=== PATIENT | female | born 1965 | race African-American/Black ===

== ENCOUNTER 2017-12-09 15:47 | Inpatient (IN) | payer SELFPAY ==
[~2017-12-09] VITALS: Ht 162.6 cm; Wt 51.8 kg
[2017-12-09] VITALS (11 sets, daily range): BP systolic 137–220; BP diastolic 65–110
[2017-12-09] MEDS ORDERED: ASPIRIN CHEWABLE 81 MG TABLET. PO ONE (16:00)
[2017-12-09] MEDS ORDERED: NITROGLYCERIN SUBLINGUAL 0.4 MG BOTTLE OF 25. SL ONE (16:00)
[2017-12-09] MEDS: NITROGLYCERIN SUBLINGUAL 0.4 MG BOTTLE OF 25. SL PRN ×3 (16:04→16:16)
--- NOTE | 2017-12-09 16:08 | PHYS DOC ---
Past Medical History Past Medical History: Hypertension Past Surgical History: Tubal ligation Alcohol Use: Occasionally Drug Use: None Adult General Chief Complaint Chief Complaint: SHORTNESS OF BREATH HPI HPI Patient is a 52 year old female with a history of lower leg swelling presents to the ED complaining of shortness of breath and worsening lower leg swelling over the last few months. States she went her chiropractor today and he sent her to the ED. Oxygen saturation was 85%. States she feels like her anxiety is causing her symptoms. States she has a lot of family stuff going on at home. Complains of mild chest pressure. Rates the pain as 1 out of 10. Patient has been sleeping in a recliner for the past year because she gets short of breath when she lays flat. Denies abdominal pain, recent travel, dizziness, weakness, syncope, fever, neck pain or nausea/vomiting. Review of Systems Review of Systems Constitutional: Denies fever or chills [] Eyes: Denies change in visual acuity, redness, or eye pain [] HENT: Denies nasal congestion or sore throat [] Respiratory: Complains of shortness of breath. Denies cough. Cardiovascular: No additional information not addressed in HPI [] GI: Denies abdominal pain, nausea, vomiting, bloody stools or diarrhea [] : Denies dysuria or hematuria [] Musculoskeletal: Complains of bilateral lower leg swelling. Denies back pain or joint pain [] Integument: Denies rash or skin lesions [] Neurologic: Denies headache, focal weakness or sensory changes [] All other systems were reviewed and found to be within normal limits, except as documented in this note. Current Medications Current Medications Current Medications Medications (Trade) Dose Ordered Sig/Keri Start Time Stop Time Status Last Admin Dose Admin Aspirin (Children'S Aspirin) 324 mg 1X ONCE 12/09/17 16:00 12/09/17 16:06 DC 12/09/17 16:08 324 MG Furosemide (Lasix) 40 mg 1X ONCE 12/09/17 16:45 12/09/17 16:46 DC 12/09/17 16:45 40 MG Nitroglycerin (Nitrostat) 0.4 mg STK-MED ONCE 12/09/17 16:00 12/09/17 16:01 DC Nitroglycerin/ Dextrose 250 ml @ 0 mls/hr 1X ONCE 12/09/17 16:30 12/09/17 18:52 DC 12/09/17 16:29 1.5 MLS/HR Allergies Allergies Allergies Coded Allergies Type Severity Reaction Last Updated Verified No Known Drug Allergies 12/09/17 No Physical Exam Physical Exam Constitutional: Well developed, well nourished, no acute distress, non-toxic appearance. [] HENT: Normocephalic, atraumatic. Eyes: PERRLA, EOMI, conjunctiva normal, no discharge. [] Neck: Normal range of motion, no tenderness, supple, no stridor. [] Cardiovascular:Heart rate regular rhythm, no murmur [] Lungs & Thorax: Bilateral breath sounds, crackles in lower bases bilaterally. [ ] Abdomen: Bowel sounds normal, soft, no tenderness, no masses, no pulsatile masses. [] Skin: Warm, dry, no erythema, no rash. [] Back: No tenderness, no CVA tenderness. [] Extremities: No tenderness, no cyanosis, no clubbing, ROM intact. 3+ bilateral lower leg pitting edema. Neurologic: Alert and oriented X 3, normal motor function, normal sensory function, no focal deficits noted. [] Psychologic: Affect normal, judgement normal, mood normal. [] Current Patient Data Vital Signs Vital Signs Date Time Temp Pulse Resp B/P (MAP) Pulse Ox O2 Delivery O2 Flow Rate FiO2 12/09/17 17:04 102 28 255/151 (185) 96 Nasal Cannula 3.0 Lab Values Laboratory Tests Test 12/09/17 16:00 White Blood Count 5.9 x10^3/uL (4.0-11.0) Red Blood Count 3.75 x10^6/uL (3.50-5.40) Hemoglobin 11.9 g/dL (12.0-15.5) L Hematocrit 35.2 % (36.0-47.0) L Mean Corpuscular Volume 94 fL (79-100) Mean Corpuscular Hemoglobin 32 pg (25-35) Mean Corpuscular Hemoglobin Concent 34 g/dL (31-37) Red Cell Distribution Width 16.7 % (11.5-14.5) H Platelet Count 271 x10^3/uL (140-400) Neutrophils (%) (Auto) 70 % (31-73) Lymphocytes (%) (Auto) 21 % (24-48) L Monocytes (%) (Auto) 7 % (0-9) Eosinophils (%) (Auto) 2 % (0-3) Basophils (%) (Auto) 1 % (0-3) Neutrophils # (Auto) 4.1 x10^3uL (1.8-7.7) Lymphocytes # (Auto) 1.2 x10^3/uL (1.0-4.8) Monocytes # (Auto) 0.4 x10^3/uL (0.0-1.1) Eosinophils # (Auto) 0.1 x10^3/uL (0.0-0.7) Basophils # (Auto) 0.1 x10^3/uL (0.0-0.2) Prothrombin Time 13.3 SEC (11.7-14.0) Prothrombin Time INR 1.1 (0.8-1.1) Sodium Level 143 mmol/L (136-145) Potassium Level 3.5 mmol/L (3.5-5.1) Chloride Level 101 mmol/L (98-107) Carbon Dioxide Level 28 mmol/L (21-32) Anion Gap 14 (6-14) Blood Urea Nitrogen 40 mg/dL (7-20) H Creatinine 5.7 mg/dL (0.6-1.0) H Estimated GFR (Cockcroft-Gault) 7.8 BUN/Creatinine Ratio 7 (6-20) Glucose Level 105 mg/dL (70-99) H Calcium Level 9.9 mg/dL (8.5-10.1) Total Bilirubin 0.8 mg/dL (0.2-1.0) Aspartate Amino Transferase (AST) 21 U/L (15-37) Alanine Aminotransferase (ALT) 44 U/L (14-59) Alkaline Phosphatase 92 U/L (46-116) Creatine Kinase 240 U/L (26-192) H Troponin I Quantitative 0.067 ng/mL (0.000-0.055) BD-Kaz-L-Type Natriuretic Peptide > 08144 pg/mL (0-124) H Total Protein 7.1 g/dL (6.4-8.2) Albumin 2.7 g/dL (3.4-5.0) L Albumin/Globulin Ratio 0.6 (1.0-1.7) L Lipase 118 U/L (73-393) Laboratory Tests 9/25/18 16:00 Laboratory Tests 12/09/17 16:00 EKG EKG [] Radiology/Procedures Radiology/Procedures [] Course & Med Decision Making Course & Med Decision Making Pertinent Labs and Imaging studies reviewed. (See chart for details) Patient presents to the ED with bilateral lower leg swelling and shortness of breath. Increased bilateral lower leg swelling over the last couple of years. hypoxic at 85% and BP at 260s/130s and improved to 96% with 2 liters of oxygen and nitro drip. 3+ pitting edema and congestion on chest XR. Lasix given. Patient has no previous record here and no PCP. Found to have a creatinine of 5.7. Unsure of previous values. Discussed case with on-call nephrology (Dr. Sales ), Requests Renal artery and doppler US. Will see patient. Continue lasix. No dialysis at this time. []Discussed case with hospitalist, Dr. Chi. Agrees to admission and further management of patient. Patient stable for admission. Dragon Disclaimer Dragon Disclaimer This electronic medical record was generated, in whole or in part, using a voice recognition dictation system. Departure Departure Impression: Primary Impression: CHF (congestive heart failure) Additional Impressions: NSTEMI (non-ST elevated myocardial infarction) TOSHIA (acute kidney injury) Hypertensive emergency Disposition: 09 ADMITTED INPATIENT Admitting Physician: Other (Arti) Condition: STABLE Problem Qualifiers AYLA SALGUERO Dec 09, 2017 16:08
--- NOTE | 2017-12-09 16:12 | EKG ---
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
[2017-12-09 16:13] LABS: BASO # 0.1 x10^3/uL (0.0-0.2); BASO % 1 % (0-3); EOS # 0.1 x10^3/uL (0.0-0.7); EOS % 2 % (0-3); HEMATOCRIT 35.2 % (36.0-47.0); HEMOGLOBIN 11.9 g/dL (12.0-15.5); LYMPH # 1.2 x10^3/uL (1.0-4.8); LYMPH % 21 % (24-48); MEAN CORPUSCULAR HEMOGLOBIN 32 pg (25-35); MEAN CORPUSCULAR HGB CONC 34 g/dL (31-37); MEAN CORPUSCULAR VOLUME 94 fL (79-100); MONO # 0.4 x10^3/uL (0.0-1.1); MONO % 7 % (0-9); NEUT # 4.1 x10^3uL (1.8-7.7); NEUT % 70 % (31-73); PLATELET COUNT 271 x10^3/uL (140-400); RED BLOOD COUNT 3.75 x10^6/uL (3.50-5.40); RED CELL DISTRIBUTION WIDTH 16.7 % (11.5-14.5); WHITE BLOOD COUNT 5.9 x10^3/uL (4.0-11.0)
[2017-12-09 16:22] LABS: PROTHROMBIN TIME PATIENT 13.3 SEC (11.7-14.0)
[2017-12-09 16:24] LABS: CALCIUM 9.9 mg/dL (8.5-10.1); CREATININE 5.7 mg/dL (0.6-1.0); GFR 7.8; POTASSIUM 3.5 mmol/L (3.5-5.1)
[2017-12-09 16:30] LABS: ALBUMIN 2.7 g/dL (3.4-5.0); ALBUMIN/GLOBULIN RATIO 0.6 (1.0-1.7); TOTAL BILIRUBIN 0.8 mg/dL (0.2-1.0); TOTAL PROTEIN 7.1 g/dL (6.4-8.2)
[2017-12-09] MEDS ORDERED: NITROGLYCERIN PREMIX 250 ML IV ONE (16:30)
--- NOTE | 2017-12-09 16:31 | RAD ---
Portable chest, 12/09/2017: HISTORY: Chest pain, shortness of breath No previous chest radiographs are available at this time for comparison purposes. The heart is enlarged. The pulmonary vascularity appears congested with loss of vascular margination. There is mild interstitial prominence. No definite pleural fluid is seen. IMPRESSION: Congestive heart failure with mild parahilar-perivascular pulmonary edema. Electronically signed by: Nilay Mcgraw MD (12/09/2017 4:27 PM) [facility]
[2017-12-09] MEDS ORDERED: FUROSEMIDE 40 MG/4 ML VIAL. IVP ONE (16:45)
[2017-12-09 17:23] LABS: BILIRUBIN,URINE NEGATIVE (NEG); CLARITY,URINE CLEAR; COLOR,URINE YELLOW; NITRITE,URINE NEGATIVE (NEG); PROTEIN,URINE >=300 mg/dL (NEG-TRACE); UROBILINOGEN,URINE 0.2 mg/dL (0.2 mg/dL)
[2017-12-09 17:35] LABS: BACTERIA,URINE 0 /HPF (0-FEW); HYALINE CASTS, URINE OCCASIONAL /HPF; RBC,URINE OCC /HPF (0-2)
[2017-12-09] MEDS ORDERED: fentaNYL PF VIAL 100 MCG/2 ML VIAL IV PRN (17:45)
[2017-12-09] MEDS ORDERED: ONDANSETRON PF 4 MG/2 ML VIAL. IV PRN (17:45)
[2017-12-09] MEDS ORDERED: ACETAMINOPHEN 325 MG TABLET. PO PRN (17:45)
--- NOTE | 2017-12-09 18:03 | PDOC1 ---
History and Physical Date of Admission Date of Admission DATE: 12/09/17 TIME: 17:50 History of Present Illness History of Present Illness Pt is a 52 y/o female admitted from the ER due to SOA and acute CHF exacerbation. Pt reports feeling SOA during a visit to the chiropractor earlier today. The chiropractor sent her to the ER due to +4 pitting edema in all 4 extremities and BP in the 270s/150s. Pt arrived to the ER with O2 sat of 80-81% on room air. Initial troponin level in the ER was 0.67, BUN 40, creatinine 5.7 and BNP > 35k. Pt was alert, talkative and pleasant and c/o mild chest pressure rated 1/10. Pt denies abd pain, dizziness, weakness, syncope, fever, n/v. Current Problem List Problem List Problems Medical Problems: (1) TOSHIA (acute kidney injury) Status: Acute (2) CHF (congestive heart failure) Status: Acute (3) Hypertensive emergency Status: Acute (4) NSTEMI (non-ST elevated myocardial infarction) Status: Acute Current Medications Current Medications Current Medications Aspirin (Children'S Aspirin) 324 mg 1X ONCE PO Last administered on 12/09/17at 16:08; Start 12/09/17 at 16:00; Stop 12/09/17 at 16:06; Status DC Nitroglycerin (Nitrostat) 0.4 mg PRN Q5MIN PRN SL CP RATING > 1/10 Last administered on 12/09/17at 16:16; Start 12/09/17 at 16:00; Stop 12/10/17 at 15:59 Nitroglycerin (Nitrostat) 0.4 mg STK-MED ONCE SL ; Start 12/09/17 at 16:00; Stop 12/09/17 at 16:01; Status DC Nitroglycerin/ Dextrose 250 ml @ 0 mls/hr 1X ONCE IV Last administered on 12/09at 16:29; Start 12/09/17 at 16:30; Stop 12/09/17 at 16:31; Status DC Furosemide (Lasix) 40 mg 1X ONCE IVP Last administered on 12/09/17at 16:45; Start 12/09/17 at 16:45; Stop 12/09/17 at 16:46; Status DC Ondansetron HCl (Zofran) 4 mg PRN Q8HRS PRN IV NAUSEA/VOMITING; Start 12/09/17 at 17:45; Stop 12/10/17 at 17:44 Fentanyl Citrate (Fentanyl 2ml Vial) 50 mcg PRN Q1HR PRN IV PAIN; Start at 17:45; Stop 12/10/17 at 17:44 Acetaminophen (Tylenol) 650 mg PRN Q4HRS PRN PO FEVER; Start 12/09/17 at 17:45 ; Stop 12/10/17 at 17:44 Allergies Allergies: Coded Allergies: No Known Drug Allergies (Unverified , 12/09/17) Physical Exam Physical Exam s1 s2 s3 murmur crackles in base obese 3+ pitting edema strength and snsation intact skin is dry General: Alert, Oriented X3, Cooperative HEENT: PERRLA, Mucous membr. moist/pink Neuro: Normal speech Vitals Vitals Vital Signs Date Time Temp Pulse Resp B/P (MAP) Pulse Ox O2 Delivery O2 Flow Rate FiO2 12/09/17 17:44 103 232/135 (167) 95 Nasal Cannula 3.0 12/09/17 17:39 24 Labs Labs Laboratory Tests Test 12/09/17 16:00 12/09/17 17:13 White Blood Count 5.9 x10^3/uL (4.0-11.0) Red Blood Count 3.75 x10^6/uL (3.50-5.40) Hemoglobin 11.9 g/dL (12.0-15.5) Hematocrit 35.2 % (36.0-47.0) Mean Corpuscular Volume 94 fL (79-100) Mean Corpuscular Hemoglobin 32 pg (25-35) Mean Corpuscular Hemoglobin Concent 34 g/dL (31-37) Red Cell Distribution Width 16.7 % (11.5-14.5) Platelet Count 271 x10^3/uL (140-400) Neutrophils (%) (Auto) 70 % (31-73) Lymphocytes (%) (Auto) 21 % (24-48) Monocytes (%) (Auto) 7 % (0-9) Eosinophils (%) (Auto) 2 % (0-3) Basophils (%) (Auto) 1 % (0-3) Neutrophils # (Auto) 4.1 x10^3uL (1.8-7.7) Lymphocytes # (Auto) 1.2 x10^3/uL (1.0-4.8) Monocytes # (Auto) 0.4 x10^3/uL (0.0-1.1) Eosinophils # (Auto) 0.1 x10^3/uL (0.0-0.7) Basophils # (Auto) 0.1 x10^3/uL (0.0-0.2) Prothrombin Time 13.3 SEC (11.7-14.0) Prothromb Time International Ratio 1.1 (0.8-1.1) Sodium Level 143 mmol/L (136-145) Potassium Level 3.5 mmol/L (3.5-5.1) Chloride Level 101 mmol/L (98-107) Carbon Dioxide Level 28 mmol/L (21-32) Anion Gap 14 (6-14) Blood Urea Nitrogen 40 mg/dL (7-20) Creatinine 5.7 mg/dL (0.6-1.0) Estimated GFR (Cockcroft-Gault) 7.8 BUN/Creatinine Ratio 7 (6-20) Glucose Level 105 mg/dL (70-99) Calcium Level 9.9 mg/dL (8.5-10.1) Total Bilirubin 0.8 mg/dL (0.2-1.0) Aspartate Amino Transf (AST/SGOT) 21 U/L (15-37) Alanine Aminotransferase (ALT/SGPT) 44 U/L (14-59) Alkaline Phosphatase 92 U/L (46-116) Creatine Kinase 240 U/L (26-192) Troponin I Quantitative 0.067 ng/mL (0.000-0.055) RK-Rfr-C-Type Natriuretic Peptide > 13428 pg/mL (0-124) Total Protein 7.1 g/dL (6.4-8.2) Albumin 2.7 g/dL (3.4-5.0) Albumin/Globulin Ratio 0.6 (1.0-1.7) Lipase 118 U/L (73-393) Urine Collection Type Unknown Urine Color Yellow Urine Clarity Clear Urine pH 8.0 Urine Specific Ophiem 1.015 Urine Protein >=300 mg/dL (NEG-TRACE) Urine Glucose (UA) Negative mg/dL (NEG) Urine Ketones (Stick) Negative mg/dL (NEG) Urine Blood Trace (NEG) Urine Nitrite Negative (NEG) Urine Bilirubin Negative (NEG) Urine Urobilinogen Dipstick 0.2 mg/dL (0.2 mg/dL) Urine Leukocyte Esterase Trace (NEG) Urine RBC Occ /HPF (0-2) Urine WBC 1-4 /HPF (0-4) Urine Bacteria 0 /HPF (0-FEW) Urine Hyaline Casts Occasional /HPF Urine Mucus Slight /LPF Laboratory Tests Test 12/09/17 16:00 12/09/17 17:13 White Blood Count 5.9 x10^3/uL (4.0-11.0) Red Blood Count 3.75 x10^6/uL (3.50-5.40) Hemoglobin 11.9 g/dL (12.0-15.5) Hematocrit 35.2 % (36.0-47.0) Mean Corpuscular Volume 94 fL (79-100) Mean Corpuscular Hemoglobin 32 pg (25-35) Mean Corpuscular Hemoglobin Concent 34 g/dL (31-37) Red Cell Distribution Width 16.7 % (11.5-14.5) Platelet Count 271 x10^3/uL (140-400) Neutrophils (%) (Auto) 70 % (31-73) Lymphocytes (%) (Auto) 21 % (24-48) Monocytes (%) (Auto) 7 % (0-9) Eosinophils (%) (Auto) 2 % (0-3) Basophils (%) (Auto) 1 % (0-3) Neutrophils # (Auto) 4.1 x10^3uL (1.8-7.7) Lymphocytes # (Auto) 1.2 x10^3/uL (1.0-4.8) Monocytes # (Auto) 0.4 x10^3/uL (0.0-1.1) Eosinophils # (Auto) 0.1 x10^3/uL (0.0-0.7) Basophils # (Auto) 0.1 x10^3/uL (0.0-0.2) Prothrombin Time 13.3 SEC (11.7-14.0) Prothromb Time International Ratio 1.1 (0.8-1.1) Sodium Level 143 mmol/L (136-145) Potassium Level 3.5 mmol/L (3.5-5.1) Chloride Level 101 mmol/L (98-107) Carbon Dioxide Level 28 mmol/L (21-32) Anion Gap 14 (6-14) Blood Urea Nitrogen 40 mg/dL (7-20) Creatinine 5.7 mg/dL (0.6-1.0) Estimated GFR (Cockcroft-Gault) 7.8 BUN/Creatinine Ratio 7 (6-20) Glucose Level 105 mg/dL (70-99) Calcium Level 9.9 mg/dL (8.5-10.1) Total Bilirubin 0.8 mg/dL (0.2-1.0) Aspartate Amino Transf (AST/SGOT) 21 U/L (15-37) Alanine Aminotransferase (ALT/SGPT) 44 U/L (14-59) Alkaline Phosphatase 92 U/L (46-116) Creatine Kinase 240 U/L (26-192) Troponin I Quantitative 0.067 ng/mL (0.000-0.055) EO-Lym-A-Type Natriuretic Peptide > 41739 pg/mL (0-124) Total Protein 7.1 g/dL (6.4-8.2) Albumin 2.7 g/dL (3.4-5.0) Albumin/Globulin Ratio 0.6 (1.0-1.7) Lipase 118 U/L (73-393) Urine Collection Type Unknown Urine Color Yellow Urine Clarity Clear Urine pH 8.0 Urine Specific Ophiem 1.015 Urine Protein >=300 mg/dL (NEG-TRACE) Urine Glucose (UA) Negative mg/dL (NEG) Urine Ketones (Stick) Negative mg/dL (NEG) Urine Blood Trace (NEG) Urine Nitrite Negative (NEG) Urine Bilirubin Negative (NEG) Urine Urobilinogen Dipstick 0.2 mg/dL (0.2 mg/dL) Urine Leukocyte Esterase Trace (NEG) Urine RBC Occ /HPF (0-2) Urine WBC 1-4 /HPF (0-4) Urine Bacteria 0 /HPF (0-FEW) Urine Hyaline Casts Occasional /HPF Urine Mucus Slight /LPF VTE Prophylaxis Ordered VTE Prophylaxis Devices: Yes VTE Pharmacological Prophylaxi: Yes Assessment/Plan Assessment/Plan (1) acute systolic heart failure [facility] Class 4 - diurese (2) TOSHIA atn likely on top of CKD as well (3) Hypertensive emergency (4) NSTEMI type 2 likely # ischemic cardiomyopathy Plan - iv lasix - cardiology to consult - echo cardiogram - see orders - lipid panel / a1c SUNNY BRISCOE MD Dec 09, 2017 18:03
[2017-12-09] MEDS: FUROSEMIDE INJ 100 MG in IV NORMAL SALINE 100ML 100 ML IV PRN (20:34)
[2017-12-09] MEDS: LABETALOL HCL 200 MG TABLET PO SCH (20:34)
[2017-12-09] MEDS ORDERED: clonazePAM 1 MG TABLET PO PRN (21:15)
--- NOTE | 2017-12-09 21:40 | RAD ---
Exam performed: Renal ultrasound and renal artery Doppler. HISTORY: Hypertension, elevated renal function tests. DATE OF SERVICE: 12/09/2017. COMPARISON: None available TECHNIQUE: Real-time grayscale, color flow color as well as Doppler analysis of the renal arteries is performed and images are obtained. FINDINGS: Both kidneys are somewhat echogenic and measure 10.0 cm in length. There is no hydronephrosis or nephrolithiasis. Interrogation of the renal arteries is performed as follows. The peak systolic velocity in the mid right renal artery measures 15.0 cm/s, the proximal and distal right vertebral arteries are not well seen. Peak systolic velocity the left renal artery measures up to a 2.0 cm/s in the proximal portion. The systolic velocity the aorta measures 117.0 cm/s. Renal artery to aortic ratio the right is 0.4, 0.7. IMPRESSION: Echogenic bilateral kidneys. Correlate clinically for medical disease. No convincing evidence of renal artery stenosis is seen. Electronically signed by: Samaria Morales MD (12/09/2017 9:36 PM) [facility]
[2017-12-10] VITALS (26 sets, daily range): BP systolic 133–199; BP diastolic 62–102
[2017-12-10 03:48] LABS: BASO # 0.1 x10^3/uL (0.0-0.2); BASO % 1 % (0-3); EOS # 0.2 x10^3/uL (0.0-0.7); EOS % 4 % (0-3); HEMATOCRIT 32.7 % (36.0-47.0); HEMOGLOBIN 10.7 g/dL (12.0-15.5); LYMPH # 1.1 x10^3/uL (1.0-4.8); LYMPH % 20 % (24-48); MEAN CORPUSCULAR HEMOGLOBIN 31 pg (25-35); MEAN CORPUSCULAR HGB CONC 33 g/dL (31-37); MEAN CORPUSCULAR VOLUME 96 fL (79-100); MONO # 0.4 x10^3/uL (0.0-1.1); MONO % 8 % (0-9); NEUT # 3.7 x10^3uL (1.8-7.7); NEUT % 68 % (31-73); PLATELET COUNT 230 x10^3/uL (140-400); RED BLOOD COUNT 3.43 x10^6/uL (3.50-5.40); RED CELL DISTRIBUTION WIDTH 16.9 % (11.5-14.5); WHITE BLOOD COUNT 5.4 x10^3/uL (4.0-11.0)
[2017-12-10 04:07] LABS: ALBUMIN 2.2 g/dL (3.4-5.0); ALBUMIN/GLOBULIN RATIO 0.5 (1.0-1.7); CALCIUM 9.3 mg/dL (8.5-10.1); CREATININE 5.9 mg/dL (0.6-1.0); POTASSIUM 3.5 mmol/L (3.5-5.1); TOTAL BILIRUBIN 0.5 mg/dL (0.2-1.0); TOTAL PROTEIN 6.3 g/dL (6.4-8.2)
[2017-12-10] MEDS: LABETALOL HCL 200 MG TABLET PO SCH ×2 (08:40→20:51)
[2017-12-10] MEDS ORDERED: LIDOCAINE WITH 8.4% SOD BICARB 3 ML DISP.SYRIN. ONE (09:30)
[2017-12-10] MEDS ORDERED: HEPARIN for IV BOLUS 10,000 UNIT/10 ML VIAL. ONE (09:30)
[2017-12-10] MEDS ORDERED: LIDOCAINE WITH 8.4% SOD BICARB 3 ML DISP.SYRIN. INJ ONE ×2 (09:30→10:15)
--- NOTE | 2017-12-10 09:39 | PDOC2 ---
CARDIAC CONSULT DATE OF CONSULT Date of Consult DATE: 12/10/17 TIME: 09:32 REASON FOR CONSULT Reason for Consult: NSTEMI, CHF, hypertensive urgency REFERRING PHYSICIAN Referring Physician: Karmen SOURCE Source: Chart review, Patient HISTORY OF PRESENT ILLNESS HISTORY OF PRESENT ILLNESS 52 year old female admitted through the ER with dyspnea and anasarca. Reports she has been sleeping in a recliner for at least a year; initially due to back problems and then for dyspnea for at least the last 2 months. Reports VALENTINO with stair climbing to her apartment and well as increasing LE edema. Was sent to ER from her chiropractor's office where she was being treated for right knee pain. Hypertensive urgency POA with BP of 263/ 155 and has been treated with IV nicardipine and recent initiation of labetalol. SBP of 199 at the time of consultation. NT-proBNP > 35K associated with acute renal failure and Cr of 5.8 with dialysis catheter placement pending. Initial troponin level 0.067 and increase to 0.1. CXR consistent with CHF and treated with IV. Reports feeling better since admission Reason for Visit: hypertensive urgency, CHF, NSTEMI PAST MEDICAL HISTORY Cardiovascular: No pertinent hx Pulmonary: No pertinent hx CENTRAL NERVOUS SYSTEM: Other (none) GI: No pertinent hx Heme/Onc: Anemia NOS Hepatobiliary: No pertinent hx Psych: No pertinent hx Musculoskeletal: low back pain, Other (right knee pain ) Rheumatologic: No pertinent hx Infectious disease: No pertinent hx ENT: No pertinent hx Renal/: No pertinent hx Endocrine: No pertinent hx Dermatology: No pertinent hx PAST SURGICAL HISTORY Past Surgical History: No pertinent history FAMILY HISTORY Family History: Heart Disease (father @ age 84), Osteo Arthiritis ( mother alive @ age 87), Other (sister with TIA) SOCIAL HISTORY Social History works as [employer] Smoke: No ALCOHOL: social Drugs: None Lives: with Family CURRENT MEDICATIONS CURRENT MEDICATIONS Current Medications Medications (Trade) Dose Ordered Sig/Keri Route PRN Reason Start Time Stop Time Status Last Admin Dose Admin Aspirin (Children'S Aspirin) 324 mg 1X ONCE PO 12/09/17 16:00 12/09/17 16:06 DC 12/09/17 16:08 Nitroglycerin (Nitrostat) 0.4 mg PRN Q5MIN PRN SL CP RATING > 1/10 12/09/17 16:00 12/10/17 15:59 12/09/17 16:16 Nitroglycerin/ Dextrose 250 ml @ 0 mls/hr 1X ONCE IV 12/09/17 16:30 12/09/17 18:52 DC 12/09/17 16:29 Furosemide (Lasix) 40 mg 1X ONCE IVP 12/09/17 16:45 12/09/17 16:46 DC 12/09/17 16:45 Nicardipine HCl 50 mg/Sodium Chloride 270 ml @ 27 mls/hr CONT PRN IV SEE I/O RECORD 12/09/17 19:00 12/09/17 23:32 Furosemide 100 mg/ Sodium Chloride 100 ml @ 5 mls/hr CONT PRN IV SEE I/O RECORD 12/09/17 19:15 12/09/17 20:34 Labetalol HCl (Trandate) 200 mg BID PO 12/09/17 21:00 12/10/17 08:40 ALLERGIES ALLERGIES: Coded Allergies: No Known Drug Allergies (Unverified , 12/09/17) ROS General: No: Chills, Night Sweats, Fatigue, Malaise, Appetite, Other PSYCHOLOGICAL ROS: No: Anxiety, Behavioral Disorder, Concentration difficultie , Decreased libido, Depression, Disorientation, Hallucinations, Hostility, Irritablity, Memory difficulties, Mood Swings, Obsessive thoughts, Physical abuse, Sexual abuse, Sleep disturbances, Suicidal ideation, Other Eyes: No Blurry vision, No Decreased vision, No Double vision, No Dry eyes, No Excessive tearing, No Eye Pain, No Itchy Eyes, No Loss of vision, No Photophobia , No Scotomata, No Uses contacts, No Uses glasses, No Other HEENT: No: Heacaches, Visual Changes, Hearing change, Nasal congestion, Nasal discharge, Oral lesions, Sinus pain, Sore Throat, Epistaxis, Sneezing, Snoring, Tinnitus, Vertigo, Vocal changes, Other ALLERGY AND IMMUNOLOGY: No: Hives, Insect Bite Sensitivity, Itchy/Watery Eyes, Nasal Congestion, Post Nasal Drip, Seasonal Allergies, Other Hematological and Lymphatic: No: Bleeding Problems, Blood Clots, Blood Transfusions, Brusing, Night Sweats, Pallor, Swollen Lymph Nodes, Other ENDOCRINE: No: Breast Changes, Galactorrhea, Hair Pattern Changes, Hot Flashes , Malaise/lethargy, Mood Swings, Palpitations, Polydipsia/polyuria, Skin Changes , Temperature Intolerance, Unexpected Weight Changes, Other Respiratory: YES: Orthopnea, SOB with excertion Cardiovascular: yes Orthopnea, yes Edema Gastrointestinal: No Nausea, No Vomiting, No Abdominal Pain, No Diarrhea, No Constipation, No Melena, No Hematochezia, No Other Genitourinary: No Dysuria, No Frequency, No Incontinence, No Hematuria, No Retention, No Discharge, No Urgency, No Pain, No Flank Pain, No Other Musculoskeletal: Yes Joint Pain Neurological: No Behavorial Changes, No Bowel/Bladder ControlChng, No Confusion , No Dizziness, No Gait Disturbance, No Headaches, No Impaired Coord/balance, No Memory Loss, No Numbness/Tingling, No Seizures, No Speech Problems, No Tremors, No Visual Changes, No Weakness, No Other Skin: No Dry Skin, No Eczema, No Hair Changes, No Lumps, No Mole Changes, No Mottling, No Nail Changes, No Pruritus, No Rash, No Skin Lesion Changes, No Other, No Acne PHYSICAL EXAM General: Alert, Oriented X3, Cooperative, No acute distress HEENT: Atraumatic, Mucous membr. moist/pink Lungs: Other (posterior crackles) Heart: Normal S1, Normal S2, No murmurs Abdomen: Soft Extremities: Other (++ edema) Skin: No rashes Neuro: Normal speech Psych/Mental Status: Mental status NL, Mood NL MUSCULOSKELETAL: No deformity VITALS VITALS Vital Signs Date Time Temp Pulse Resp B/P (MAP) Pulse Ox O2 Delivery O2 Flow Rate FiO2 12/10/17 09:00 86 16 199/94 (129) 96 Nasal Cannula 4.0 12/10/17 08:00 98.2 98.2 LABS Lab: Laboratory Tests Test 12/09/17 16:00 12/09/17 17:13 12/09/17 23:30 12/10/17 03:10 White Blood Count 5.9 x10^3/uL (4.0-11.0) 5.4 x10^3/uL (4.0-11.0) Red Blood Count 3.75 x10^6/uL (3.50-5.40) 3.43 x10^6/uL (3.50-5.40) Hemoglobin 11.9 g/dL (12.0-15.5) 10.7 g/dL (12.0-15.5) Hematocrit 35.2 % (36.0-47.0) 32.7 % (36.0-47.0) Mean Corpuscular Volume 94 fL (79-100) 96 fL (79-100) Mean Corpuscular Hemoglobin 32 pg (25-35) 31 pg (25-35) Mean Corpuscular Hemoglobin Concent 34 g/dL (31-37) 33 g/dL (31-37) Red Cell Distribution Width 16.7 % (11.5-14.5) 16.9 % (11.5-14.5) Platelet Count 271 x10^3/uL (140-400) 230 x10^3/uL (140-400) Neutrophils (%) (Auto) 70 % (31-73) 68 % (31-73) Lymphocytes (%) (Auto) 21 % (24-48) 20 % (24-48) Monocytes (%) (Auto) 7 % (0-9) 8 % (0-9) Eosinophils (%) (Auto) 2 % (0-3) 4 % (0-3) Basophils (%) (Auto) 1 % (0-3) 1 % (0-3) Neutrophils # (Auto) 4.1 x10^3uL (1.8-7.7) 3.7 x10^3uL (1.8-7.7) Lymphocytes # (Auto) 1.2 x10^3/uL (1.0-4.8) 1.1 x10^3/uL (1.0-4.8) Monocytes # (Auto) 0.4 x10^3/uL (0.0-1.1) 0.4 x10^3/uL (0.0-1.1) Eosinophils # (Auto) 0.1 x10^3/uL (0.0-0.7) 0.2 x10^3/uL (0.0-0.7) Basophils # (Auto) 0.1 x10^3/uL (0.0-0.2) 0.1 x10^3/uL (0.0-0.2) Prothrombin Time 13.3 SEC (11.7-14.0) Prothromb Time International Ratio 1.1 (0.8-1.1) Sodium Level 143 mmol/L (136-145) 142 mmol/L (136-145) Potassium Level 3.5 mmol/L (3.5-5.1) 3.5 mmol/L (3.5-5.1) Chloride Level 101 mmol/L (98-107) 102 mmol/L (98-107) Carbon Dioxide Level 28 mmol/L (21-32) 30 mmol/L (21-32) Anion Gap 14 (6-14) 10 (6-14) Blood Urea Nitrogen 40 mg/dL (7-20) 41 mg/dL (7-20) Creatinine 5.7 mg/dL (0.6-1.0) 5.9 mg/dL (0.6-1.0) Estimated GFR (Cockcroft-Gault) 7.8 9.0 BUN/Creatinine Ratio 7 (6-20) 7 (6-20) Glucose Level 105 mg/dL (70-99) 87 mg/dL (70-99) Calcium Level 9.9 mg/dL (8.5-10.1) 9.3 mg/dL (8.5-10.1) Total Bilirubin 0.8 mg/dL (0.2-1.0) 0.5 mg/dL (0.2-1.0) Aspartate Amino Transf (AST/SGOT) 21 U/L (15-37) 20 U/L (15-37) Alanine Aminotransferase (ALT/SGPT) 44 U/L (14-59) 38 U/L (14-59) Alkaline Phosphatase 92 U/L (46-116) 73 U/L (46-116) Creatine Kinase 240 U/L (26-192) Troponin I Quantitative 0.067 ng/mL (0.000-0.055) 0.105 ng/mL (0.000-0.055) WW-Mww-A-Type Natriuretic Peptide > 30111 pg/mL (0-124) Total Protein 7.1 g/dL (6.4-8.2) 6.3 g/dL (6.4-8.2) Albumin 2.7 g/dL (3.4-5.0) 2.2 g/dL (3.4-5.0) Albumin/Globulin Ratio 0.6 (1.0-1.7) 0.5 (1.0-1.7) Lipase 118 U/L (73-393) Urine Collection Type Unknown Urine Color Yellow Urine Clarity Clear Urine pH 8.0 Urine Specific Midnight 1.015 Urine Protein >=300 mg/dL (NEG-TRACE) Urine Glucose (UA) Negative mg/dL (NEG) Urine Ketones (Stick) Negative mg/dL (NEG) Urine Blood Trace (NEG) Urine Nitrite Negative (NEG) Urine Bilirubin Negative (NEG) Urine Urobilinogen Dipstick 0.2 mg/dL (0.2 mg/dL) Urine Leukocyte Esterase Trace (NEG) Urine RBC Occ /HPF (0-2) Urine WBC 1-4 /HPF (0-4) Urine Bacteria 0 /HPF (0-FEW) Urine Hyaline Casts Occasional /HPF Urine Mucus Slight /LPF IMAGES IMAGES CXR: No previous chest radiographs are available at this time for comparison purposes. The heart is enlarged. The pulmonary vascularity appears congested with loss of vascular margination. There is mild interstitial prominence. No definite pleural fluid is seen. IMPRESSION: Congestive heart failure with mild parahilar-perivascular pulmonary edema. EKG EKG ST; no acute changes; ? RBBB ASSESSMENT/PLAN ASSESSMENT/PLAN 1. NSTEMI --likely demand mediated from hypertensive urgency and renal failure --TTE to evaluate LVEF and assess for WMA --will need ischemic evaluation when BP stable -- will require 2 day MPI 2. hypertensive urgency --add clonidine 0.1 mg Q8H to better control SBP --try to wean nicardipine gtt off 3. acute CHF secondary to acute renal failure --diuretics/fluid management per Nephrology --? hemodialysis 4. anemia of chronic disease 5. morbid obesity with BMI of 46 GRETEL ARAUZ CRYSTAL SLICER Dec 10, 2017 09:39
--- NOTE | 2017-12-10 09:40 | PDOC2 ---
CONSULT Date of Consult Date of Consult DATE: 12/10/17 TIME: 09:15 Reason for Consult Reason for Consult: Renal failure Identification/Chief Complaint Chief Complaint "I am feeling Much ap, Finally was able to sleep" Source Source: Chart review, Patient History of Present Illness Reason for Visit: Pt is a 52 y/o AAF admitted from the ER due to SOA and acute CHF exacerbation. Pt reports feeling SOA during a visit to the chiropractor yesterday . The chiropractor sent her to the ER due to significant pitting edema in all 4 extremities and BP in the 270s/150s. Pt arrived to the ER with O2 sat of 80-81% on room air. Initial troponin level in the ER was 0.67, BUN 40, creatinine 5.7 and BNP > 35k. Pt denies any complaints currently. States she is feeling much better and was able to sleep after a Long time . She states she has not seen a Health care Provider for many years and doesn't have any significant PMHx. Denies Hx of HTN or renal problems. States her Father had CAD , HTN and On dialysis for 1 Year around 84 yrs .She denies taking any NSAID's, takes only Turmeric and Spirulina . Denies any other OTC meds. Denies Illegal drug use. Denies any Urinary symptoms- states had Good UOP even yesterday . States she has lots of stressors- Including financial, she works as a Nurse She states she Noticed her legs were swollen but didint pay much attention as she thought it was due to Bursitis of her knee and she has go three flights of stairs to her apt every day Pt denies abd pain, dizziness, weakness, syncope, fever, n/v or diarrhea .Denies any Rash Current Problem List Problem List Problems Medical Problems: (1) TOSHIA (acute kidney injury) Status: Acute (2) CHF (congestive heart failure) Status: Acute (3) Hypertensive emergency Status: Acute (4) NSTEMI (non-ST elevated myocardial infarction) Status: Acute Current Medications Current Medications Current Medications Aspirin (Children'S Aspirin) 324 mg 1X ONCE PO Last administered on 12/09/17at 16:08; Start 12/09/17 at 16:00; Stop 12/09/17 at 16:06; Status DC Nitroglycerin (Nitrostat) 0.4 mg PRN Q5MIN PRN SL CP RATING > 1/10 Last administered on 12/09/17at 16:16; Start 12/09/17 at 16:00; Stop 12/10/17 at 15:59 Nitroglycerin (Nitrostat) 0.4 mg STK-MED ONCE SL ; Start 12/09/17 at 16:00; Stop 12/09/17 at 16:01; Status DC Nitroglycerin/ Dextrose 250 ml @ 0 mls/hr 1X ONCE IV Last administered on 12/09at 16:29; Start 12/09/17 at 16:30; Stop 12/09/17 at 18:52; Status DC Furosemide (Lasix) 40 mg 1X ONCE IVP Last administered on 12/09/17at 16:45; Start 12/09/17 at 16:45; Stop 12/09/17 at 16:46; Status DC Ondansetron HCl (Zofran) 4 mg PRN Q8HRS PRN IV NAUSEA/VOMITING; Start 12/09/17 at 17:45; Stop 12/10/17 at 17:44 Fentanyl Citrate (Fentanyl 2ml Vial) 50 mcg PRN Q1HR PRN IV PAIN; Start at 17:45; Stop 12/10/17 at 17:44 Acetaminophen (Tylenol) 650 mg PRN Q4HRS PRN PO FEVER; Start 12/09/17 at 17:45 ; Stop 12/10/17 at 17:44 Nicardipine HCl 50 mg/Sodium Chloride 270 ml @ 27 mls/hr CONT PRN IV SEE I/O RECORD Last administered on 12/09/17at 23:32; Start 12/09/17 at 19:00 Furosemide 100 mg/ Sodium Chloride 100 ml @ 5 mls/hr CONT PRN IV SEE I/O RECORD Last administered on 12/09/17at 20:34; Start 12/09/17 at 19:15 Labetalol HCl (Trandate) 200 mg BID PO Last administered on 12/10/17at 08:40; Start 12/09/17 at 21:00 Clonazepam (KlonoPIN) 1 mg PRN QHS PRN PO ANXIETY / AGITATION; Start 12/09/17 at 21:15 Allergies Allergies: Coded Allergies: No Known Drug Allergies (Unverified , 12/09/17) ROS Review of System As per HPI Physical Exam Physical Exam GEN: NAD HEENT- OM moist, O2 by NC NECK: No JVD CVS: S1S2, Murmur + RESP: Bilat crackles +, Non labored breathing GI: BS + ve, Non Tender, obese : No CVA tenderness, no Suprapubic Tenderness, [place] + Skin No rash Neuro- AxO, grossly Normal Vital Signs Vital Signs Date Time Temp Pulse Resp B/P (MAP) Pulse Ox O2 Delivery O2 Flow Rate FiO2 12/10/17 08:40 76 171/81 12/10/17 07:00 21 100 Nasal Cannula 4.0 12/10/17 04:02 98.2 98.2 Assessment & Plan TOSHIA - Unknown baseline renal function Likely ATN vs Cardiorenal ? Progression of ? CKD Renal US - echogenic Kidneys cw CKD , No significant Microscopic hematuria Check Protein/Creat Spot Oliguric on admission , Improved after Lasix drip increased last night to 10 E-Lytes stable , currently no emergent indication for WEIGHER AND MIXER HTN Urgency -- On Cardene drip Renal Doppler No significant findings Cardiology following ? CKD- HTNsive Nephrosclerosis US consistent with CKD Shortness of Breath- CxR Pulm edema, BNP elevated ? CHF , Cardiology Consulted Discussed with Patient and RN at bedside Labs Labs Laboratory Tests Test 12/09/17 16:00 12/09/17 17:13 12/09/17 23:30 12/10/17 03:10 White Blood Count 5.9 x10^3/uL (4.0-11.0) 5.4 x10^3/uL (4.0-11.0) Red Blood Count 3.75 x10^6/uL (3.50-5.40) 3.43 x10^6/uL (3.50-5.40) Hemoglobin 11.9 g/dL (12.0-15.5) 10.7 g/dL (12.0-15.5) Hematocrit 35.2 % (36.0-47.0) 32.7 % (36.0-47.0) Mean Corpuscular Volume 94 fL (79-100) 96 fL (79-100) Mean Corpuscular Hemoglobin 32 pg (25-35) 31 pg (25-35) Mean Corpuscular Hemoglobin Concent 34 g/dL (31-37) 33 g/dL (31-37) Red Cell Distribution Width 16.7 % (11.5-14.5) 16.9 % (11.5-14.5) Platelet Count 271 x10^3/uL (140-400) 230 x10^3/uL (140-400) Neutrophils (%) (Auto) 70 % (31-73) 68 % (31-73) Lymphocytes (%) (Auto) 21 % (24-48) 20 % (24-48) Monocytes (%) (Auto) 7 % (0-9) 8 % (0-9) Eosinophils (%) (Auto) 2 % (0-3) 4 % (0-3) Basophils (%) (Auto) 1 % (0-3) 1 % (0-3) Neutrophils # (Auto) 4.1 x10^3uL (1.8-7.7) 3.7 x10^3uL (1.8-7.7) Lymphocytes # (Auto) 1.2 x10^3/uL (1.0-4.8) 1.1 x10^3/uL (1.0-4.8) Monocytes # (Auto) 0.4 x10^3/uL (0.0-1.1) 0.4 x10^3/uL (0.0-1.1) Eosinophils # (Auto) 0.1 x10^3/uL (0.0-0.7) 0.2 x10^3/uL (0.0-0.7) Basophils # (Auto) 0.1 x10^3/uL (0.0-0.2) 0.1 x10^3/uL (0.0-0.2) Prothrombin Time 13.3 SEC (11.7-14.0) Prothromb Time International Ratio 1.1 (0.8-1.1) Sodium Level 143 mmol/L (136-145) 142 mmol/L (136-145) Potassium Level 3.5 mmol/L (3.5-5.1) 3.5 mmol/L (3.5-5.1) Chloride Level 101 mmol/L (98-107) 102 mmol/L (98-107) Carbon Dioxide Level 28 mmol/L (21-32) 30 mmol/L (21-32) Anion Gap 14 (6-14) 10 (6-14) Blood Urea Nitrogen 40 mg/dL (7-20) 41 mg/dL (7-20) Creatinine 5.7 mg/dL (0.6-1.0) 5.9 mg/dL (0.6-1.0) Estimated GFR (Cockcroft-Gault) 7.8 9.0 BUN/Creatinine Ratio 7 (6-20) 7 (6-20) Glucose Level 105 mg/dL (70-99) 87 mg/dL (70-99) Calcium Level 9.9 mg/dL (8.5-10.1) 9.3 mg/dL (8.5-10.1) Total Bilirubin 0.8 mg/dL (0.2-1.0) 0.5 mg/dL (0.2-1.0) Aspartate Amino Transf (AST/SGOT) 21 U/L (15-37) 20 U/L (15-37) Alanine Aminotransferase (ALT/SGPT) 44 U/L (14-59) 38 U/L (14-59) Alkaline Phosphatase 92 U/L (46-116) 73 U/L (46-116) Creatine Kinase 240 U/L (26-192) Troponin I Quantitative 0.067 ng/mL (0.000-0.055) 0.105 ng/mL (0.000-0.055) CA-Gzf-Z-Type Natriuretic Peptide > 59554 pg/mL (0-124) Total Protein 7.1 g/dL (6.4-8.2) 6.3 g/dL (6.4-8.2) Albumin 2.7 g/dL (3.4-5.0) 2.2 g/dL (3.4-5.0) Albumin/Globulin Ratio 0.6 (1.0-1.7) 0.5 (1.0-1.7) Lipase 118 U/L (73-393) Urine Collection Type Unknown Urine Color Yellow Urine Clarity Clear Urine pH 8.0 Urine Specific [place] 1.015 Urine Protein >=300 mg/dL (NEG-TRACE) Urine Glucose (UA) Negative mg/dL (NEG) Urine Ketones (Stick) Negative mg/dL (NEG) Urine Blood Trace (NEG) Urine Nitrite Negative (NEG) Urine Bilirubin Negative (NEG) Urine Urobilinogen Dipstick 0.2 mg/dL (0.2 mg/dL) Urine Leukocyte Esterase Trace (NEG) Urine RBC Occ /HPF (0-2) Urine WBC 1-4 /HPF (0-4) Urine Bacteria 0 /HPF (0-FEW) Urine Hyaline Casts Occasional /HPF Urine Mucus Slight /LPF Laboratory Tests Test 12/09/17 16:00 12/09/17 17:13 12/09/17 23:30 12/10/17 03:10 White Blood Count 5.9 x10^3/uL (4.0-11.0) 5.4 x10^3/uL (4.0-11.0) Red Blood Count 3.75 x10^6/uL (3.50-5.40) 3.43 x10^6/uL (3.50-5.40) Hemoglobin 11.9 g/dL (12.0-15.5) 10.7 g/dL (12.0-15.5) Hematocrit 35.2 % (36.0-47.0) 32.7 % (36.0-47.0) Mean Corpuscular Volume 94 fL (79-100) 96 fL (79-100) Mean Corpuscular Hemoglobin 32 pg (25-35) 31 pg (25-35) Mean Corpuscular Hemoglobin Concent 34 g/dL (31-37) 33 g/dL (31-37) Red Cell Distribution Width 16.7 % (11.5-14.5) 16.9 % (11.5-14.5) Platelet Count 271 x10^3/uL (140-400) 230 x10^3/uL (140-400) Neutrophils (%) (Auto) 70 % (31-73) 68 % (31-73) Lymphocytes (%) (Auto) 21 % (24-48) 20 % (24-48) Monocytes (%) (Auto) 7 % (0-9) 8 % (0-9) Eosinophils (%) (Auto) 2 % (0-3) 4 % (0-3) Basophils (%) (Auto) 1 % (0-3) 1 % (0-3) Neutrophils # (Auto) 4.1 x10^3uL (1.8-7.7) 3.7 x10^3uL (1.8-7.7) Lymphocytes # (Auto) 1.2 x10^3/uL (1.0-4.8) 1.1 x10^3/uL (1.0-4.8) Monocytes # (Auto) 0.4 x10^3/uL (0.0-1.1) 0.4 x10^3/uL (0.0-1.1) Eosinophils # (Auto) 0.1 x10^3/uL (0.0-0.7) 0.2 x10^3/uL (0.0-0.7) Basophils # (Auto) 0.1 x10^3/uL (0.0-0.2) 0.1 x10^3/uL (0.0-0.2) Prothrombin Time 13.3 SEC (11.7-14.0) Prothromb Time International Ratio 1.1 (0.8-1.1) Sodium Level 143 mmol/L (136-145) 142 mmol/L (136-145) Potassium Level 3.5 mmol/L (3.5-5.1) 3.5 mmol/L (3.5-5.1) Chloride Level 101 mmol/L (98-107) 102 mmol/L (98-107) Carbon Dioxide Level 28 mmol/L (21-32) 30 mmol/L (21-32) Anion Gap 14 (6-14) 10 (6-14) Blood Urea Nitrogen 40 mg/dL (7-20) 41 mg/dL (7-20) Creatinine 5.7 mg/dL (0.6-1.0) 5.9 mg/dL (0.6-1.0) Estimated GFR (Cockcroft-Gault) 7.8 9.0 BUN/Creatinine Ratio 7 (6-20) 7 (6-20) Glucose Level 105 mg/dL (70-99) 87 mg/dL (70-99) Calcium Level 9.9 mg/dL (8.5-10.1) 9.3 mg/dL (8.5-10.1) Total Bilirubin 0.8 mg/dL (0.2-1.0) 0.5 mg/dL (0.2-1.0) Aspartate Amino Transf (AST/SGOT) 21 U/L (15-37) 20 U/L (15-37) Alanine Aminotransferase (ALT/SGPT) 44 U/L (14-59) 38 U/L (14-59) Alkaline Phosphatase 92 U/L (46-116) 73 U/L (46-116) Creatine Kinase 240 U/L (26-192) Troponin I Quantitative 0.067 ng/mL (0.000-0.055) 0.105 ng/mL (0.000-0.055) UQ-Ejn-E-Type Natriuretic Peptide > 27286 pg/mL (0-124) Total Protein 7.1 g/dL (6.4-8.2) 6.3 g/dL (6.4-8.2) Albumin 2.7 g/dL (3.4-5.0) 2.2 g/dL (3.4-5.0) Albumin/Globulin Ratio 0.6 (1.0-1.7) 0.5 (1.0-1.7) Lipase 118 U/L (73-393) Urine Collection Type Unknown Urine Color Yellow Urine Clarity Clear Urine pH 8.0 Urine Specific [place] 1.015 Urine Protein >=300 mg/dL (NEG-TRACE) Urine Glucose (UA) Negative mg/dL (NEG) Urine Ketones (Stick) Negative mg/dL (NEG) Urine Blood Trace (NEG) Urine Nitrite Negative (NEG) Urine Bilirubin Negative (NEG) Urine Urobilinogen Dipstick 0.2 mg/dL (0.2 mg/dL) Urine Leukocyte Esterase Trace (NEG) Urine RBC Occ /HPF (0-2) Urine WBC 1-4 /HPF (0-4) Urine Bacteria 0 /HPF (0-FEW) Urine Hyaline Casts Occasional /HPF Urine Mucus Slight /LPF Review All relevant outside records, renal labs, imaging studies, telemetry/EKG's were reviewed. Images Images Renal US/Doppler Both kidneys are somewhat echogenic and measure 10.0 cm in length. There is no hydronephrosis or nephrolithiasis. Interrogation of the renal arteries is performed as follows. The peak systolic velocity in the mid right renal artery measures 15.0 cm/s, the proximal and distal right vertebral arteries are not well seen. Peak systolic velocity the left renal artery measures up to a 2.0 cm/s in the proximal portion. The systolic velocity the aorta measures 117.0 cm/s. Renal artery to aortic ratio the right is 0.4, 0.7. IMPRESSION: Echogenic bilateral kidneys. Correlate clinically for medical disease. No convincing evidence of renal artery stenosis is seen. CxR-- No previous chest radiographs are available at this time for comparison purposes. The heart is enlarged. The pulmonary vascularity appears congested with loss of vascular margination. There is mild interstitial prominence. No definite pleural fluid is seen. IMPRESSION: Congestive heart failure with mild parahilar-perivascular pulmonary edema. THADDEUS GOMEZ MD Dec 10, 2017 09:40
[2017-12-10] MEDS: cloNIDine HCL 0.1 MG TABLET PO SCH ×3 (10:13→22:08)
--- NOTE | 2017-12-10 10:36 | RAD ---
EXAM: CHEST 1 VIEW History: Dialysis catheter placement COMPARISON: 12/09/2017 TECHNIQUE: Single portable radiograph of the chest FINDINGS: Low lung volumes and technique accentuates heart size and pulmonary vascularity. Mild diffuse prominent appearing bilateral interstitial lung markings likely congestive changes. Right-sided internal jugular dialysis catheter is identified with the tip projecting in the right atrium. Mild bibasilar lung airspace opacities. IMPRESSION: 1. Mild congestive changes. 2. Right internal jugular dialysis catheter identified with the tip projecting in the right atrium. 3. Mild bibasilar lung airspace opacities likely atelectasis or infiltrates. Electronically signed by: Xander Carrillo MD (12/10/2017 10:32 AM) [id number]
--- NOTE | 2017-12-10 12:59 | RAD ---
Procedure: Ultrasound-guided placement of right internal temporary dialysis catheter 12/10/2017 12:54 PM Clinical Indication: Trialysis , TOSHIA , Uncontrolled HTN Discussion: The risks and benefits of the procedure were discussed the patient and/or their field service representative. Informed consent was obtained. A timeout procedure was performed. All elements of maximal sterile barrier technique including the use of a cap, mask, sterile gown, sterile gloves, large sterile sheet, appropriate hand hygiene, and 2% chlorhexidine for cutaneous antisepsis (or acceptable alternative antiseptic per current guidelines) were followed for this procedure. The patient was prepped and draped in the usual sterile fashion. Ultrasound interrogation of the right neck revealed patency and compressibility of the right internal jugular vein. A 21-gauge micropuncture was then used to gain access to this vein under ultrasound guidance. A hard copy ultrasound image was recorded. A guidewire was advanced centrally. 5 Kinyarwanda sheath was placed. Over a wire following dilatation, a temporary dialysis catheter was advanced centrally. The catheter was found to flush and aspirate normally. Follow-up chest radiograph demonstrates tip at the cavoatrial junction. Catheter secured in place and a sterile dressing was applied. No immediate complications were identified. Impression: Successful ultrasound-guided placement of right internal jugular temporary dialysis catheter
[2017-12-10] MEDS ORDERED: LABETALOL HCL 200 MG TABLET PO ONE (13:00)
[2017-12-10 13:12] LABS: BARBITURATES NEG (NEG); BENZODIAZEPINES NEG (NEG); CANNABINOIDS NEG (NEG); COCAINE NEG (NEG); METHADONE NEG (NEG); OPIATES NEG (NEG); PHENCYCLIDINE NEG (NEG)
[2017-12-10 13:13] LABS: AMPHETAMINE/METHAMPHETAMINE NEG (NEG)
--- NOTE | 2017-12-10 15:15 | PDOC ---
PROGRESS NOTES Chief Complaint Chief Complaint acute systolic heart failure TOSHIA atn likely on top of CKD as well Hypertensive emergency ischemic cardiomyopathy History of Present Illness History of Present Illness pt seen and examined in ICU Dw cardio [employer] improved HTN pt reports feeling better Vitals Vitals Vital Signs Date Time Temp Pulse Resp B/P (MAP) Pulse Ox O2 Delivery O2 Flow Rate FiO2 12/10/17 14:15 74 150/62 (91) 12/10/17 14:00 24 97 Nasal Cannula 4.0 12/10/17 12:26 98.3 98.3 Physical Exam General: Alert, Oriented X3, Cooperative, No acute distress Heart: Normal S1, Normal S2, No murmurs Abdomen: Normal bowel sounds, Soft Extremities: No cyanosis, Other (++ edema) Skin: No rashes, No breakdown Labs LABS Laboratory Tests Test 12/09/17 16:00 12/09/17 17:13 12/09/17 23:30 12/10/17 03:10 White Blood Count 5.9 x10^3/uL (4.0-11.0) 5.4 x10^3/uL (4.0-11.0) Red Blood Count 3.75 x10^6/uL (3.50-5.40) 3.43 x10^6/uL (3.50-5.40) Hemoglobin 11.9 g/dL (12.0-15.5) 10.7 g/dL (12.0-15.5) Hematocrit 35.2 % (36.0-47.0) 32.7 % (36.0-47.0) Mean Corpuscular Volume 94 fL (79-100) 96 fL (79-100) Mean Corpuscular Hemoglobin 32 pg (25-35) 31 pg (25-35) Mean Corpuscular Hemoglobin Concent 34 g/dL (31-37) 33 g/dL (31-37) Red Cell Distribution Width 16.7 % (11.5-14.5) 16.9 % (11.5-14.5) Platelet Count 271 x10^3/uL (140-400) 230 x10^3/uL (140-400) Neutrophils (%) (Auto) 70 % (31-73) 68 % (31-73) Lymphocytes (%) (Auto) 21 % (24-48) 20 % (24-48) Monocytes (%) (Auto) 7 % (0-9) 8 % (0-9) Eosinophils (%) (Auto) 2 % (0-3) 4 % (0-3) Basophils (%) (Auto) 1 % (0-3) 1 % (0-3) Neutrophils # (Auto) 4.1 x10^3uL (1.8-7.7) 3.7 x10^3uL (1.8-7.7) Lymphocytes # (Auto) 1.2 x10^3/uL (1.0-4.8) 1.1 x10^3/uL (1.0-4.8) Monocytes # (Auto) 0.4 x10^3/uL (0.0-1.1) 0.4 x10^3/uL (0.0-1.1) Eosinophils # (Auto) 0.1 x10^3/uL (0.0-0.7) 0.2 x10^3/uL (0.0-0.7) Basophils # (Auto) 0.1 x10^3/uL (0.0-0.2) 0.1 x10^3/uL (0.0-0.2) Prothrombin Time 13.3 SEC (11.7-14.0) Prothromb Time International Ratio 1.1 (0.8-1.1) Sodium Level 143 mmol/L (136-145) 142 mmol/L (136-145) Potassium Level 3.5 mmol/L (3.5-5.1) 3.5 mmol/L (3.5-5.1) Chloride Level 101 mmol/L (98-107) 102 mmol/L (98-107) Carbon Dioxide Level 28 mmol/L (21-32) 30 mmol/L (21-32) Anion Gap 14 (6-14) 10 (6-14) Blood Urea Nitrogen 40 mg/dL (7-20) 41 mg/dL (7-20) Creatinine 5.7 mg/dL (0.6-1.0) 5.9 mg/dL (0.6-1.0) Estimated GFR (Cockcroft-Gault) 7.8 9.0 BUN/Creatinine Ratio 7 (6-20) 7 (6-20) Glucose Level 105 mg/dL (70-99) 87 mg/dL (70-99) Calcium Level 9.9 mg/dL (8.5-10.1) 9.3 mg/dL (8.5-10.1) Total Bilirubin 0.8 mg/dL (0.2-1.0) 0.5 mg/dL (0.2-1.0) Aspartate Amino Transf (AST/SGOT) 21 U/L (15-37) 20 U/L (15-37) Alanine Aminotransferase (ALT/SGPT) 44 U/L (14-59) 38 U/L (14-59) Alkaline Phosphatase 92 U/L (46-116) 73 U/L (46-116) Creatine Kinase 240 U/L (26-192) Troponin I Quantitative 0.067 ng/mL (0.000-0.055) 0.105 ng/mL (0.000-0.055) SV-Wfq-T-Type Natriuretic Peptide > 81086 pg/mL (0-124) Total Protein 7.1 g/dL (6.4-8.2) 6.3 g/dL (6.4-8.2) Albumin 2.7 g/dL (3.4-5.0) 2.2 g/dL (3.4-5.0) Albumin/Globulin Ratio 0.6 (1.0-1.7) 0.5 (1.0-1.7) Lipase 118 U/L (73-393) Urine Collection Type Unknown Urine Color Yellow Urine Clarity Clear Urine pH 8.0 Urine Specific [place] 1.015 Urine Protein >=300 mg/dL (NEG-TRACE) Urine Glucose (UA) Negative mg/dL (NEG) Urine Ketones (Stick) Negative mg/dL (NEG) Urine Blood Trace (NEG) Urine Nitrite Negative (NEG) Urine Bilirubin Negative (NEG) Urine Urobilinogen Dipstick 0.2 mg/dL (0.2 mg/dL) Urine Leukocyte Esterase Trace (NEG) Urine RBC Occ /HPF (0-2) Urine WBC 1-4 /HPF (0-4) Urine Bacteria 0 /HPF (0-FEW) Urine Hyaline Casts Occasional /HPF Urine Mucus Slight /LPF Test 12/10/17 12:22 Urine Opiates Screen Neg (NEG) Urine Methadone Screen Neg (NEG) Urine Barbiturates Neg (NEG) Urine Phencyclidine Screen Neg (NEG) Urine Amphetamine/Methamphetamine Neg (NEG) Urine Benzodiazepines Screen Neg (NEG) Urine Cocaine Screen Neg (NEG) Urine Cannabinoids Screen Neg (NEG) Urine Ethyl Alcohol Neg (NEG) Review of Systems Review of Systems no fever mild hunger pain Assessment and Plan Assessmemt and Plan Problems Medical Problems: (1) TOSHIA (acute kidney injury) Status: Acute (2) CHF (congestive heart failure) Status: Acute (3) Hypertensive emergency Status: Acute (4) NSTEMI (non-ST elevated myocardial infarction) Status: Acute acute systolic heart failure TOSHIA atn likely on top of CKD as well Hypertensive emergency ischemic cardiomyopathy Plan: Dialysis ICU monitoring NC O2 therapy follow labs home meds Comment Review of Relevant I have reviewed the following items batsheva (where applicable) has been applied. Labs Laboratory Tests Test 12/09/17 16:00 12/09/17 17:13 12/09/17 23:30 12/10/17 03:10 White Blood Count 5.9 x10^3/uL (4.0-11.0) 5.4 x10^3/uL (4.0-11.0) Red Blood Count 3.75 x10^6/uL (3.50-5.40) 3.43 x10^6/uL (3.50-5.40) Hemoglobin 11.9 g/dL (12.0-15.5) 10.7 g/dL (12.0-15.5) Hematocrit 35.2 % (36.0-47.0) 32.7 % (36.0-47.0) Mean Corpuscular Volume 94 fL (79-100) 96 fL (79-100) Mean Corpuscular Hemoglobin 32 pg (25-35) 31 pg (25-35) Mean Corpuscular Hemoglobin Concent 34 g/dL (31-37) 33 g/dL (31-37) Red Cell Distribution Width 16.7 % (11.5-14.5) 16.9 % (11.5-14.5) Platelet Count 271 x10^3/uL (140-400) 230 x10^3/uL (140-400) Neutrophils (%) (Auto) 70 % (31-73) 68 % (31-73) Lymphocytes (%) (Auto) 21 % (24-48) 20 % (24-48) Monocytes (%) (Auto) 7 % (0-9) 8 % (0-9) Eosinophils (%) (Auto) 2 % (0-3) 4 % (0-3) Basophils (%) (Auto) 1 % (0-3) 1 % (0-3) Neutrophils # (Auto) 4.1 x10^3uL (1.8-7.7) 3.7 x10^3uL (1.8-7.7) Lymphocytes # (Auto) 1.2 x10^3/uL (1.0-4.8) 1.1 x10^3/uL (1.0-4.8) Monocytes # (Auto) 0.4 x10^3/uL (0.0-1.1) 0.4 x10^3/uL (0.0-1.1) Eosinophils # (Auto) 0.1 x10^3/uL (0.0-0.7) 0.2 x10^3/uL (0.0-0.7) Basophils # (Auto) 0.1 x10^3/uL (0.0-0.2) 0.1 x10^3/uL (0.0-0.2) Prothrombin Time 13.3 SEC (11.7-14.0) Prothromb Time International Ratio 1.1 (0.8-1.1) Sodium Level 143 mmol/L (136-145) 142 mmol/L (136-145) Potassium Level 3.5 mmol/L (3.5-5.1) 3.5 mmol/L (3.5-5.1) Chloride Level 101 mmol/L (98-107) 102 mmol/L (98-107) Carbon Dioxide Level 28 mmol/L (21-32) 30 mmol/L (21-32) Anion Gap 14 (6-14) 10 (6-14) Blood Urea Nitrogen 40 mg/dL (7-20) 41 mg/dL (7-20) Creatinine 5.7 mg/dL (0.6-1.0) 5.9 mg/dL (0.6-1.0) Estimated GFR (Cockcroft-Gault) 7.8 9.0 BUN/Creatinine Ratio 7 (6-20) 7 (6-20) Glucose Level 105 mg/dL (70-99) 87 mg/dL (70-99) Calcium Level 9.9 mg/dL (8.5-10.1) 9.3 mg/dL (8.5-10.1) Total Bilirubin 0.8 mg/dL (0.2-1.0) 0.5 mg/dL (0.2-1.0) Aspartate Amino Transf (AST/SGOT) 21 U/L (15-37) 20 U/L (15-37) Alanine Aminotransferase (ALT/SGPT) 44 U/L (14-59) 38 U/L (14-59) Alkaline Phosphatase 92 U/L (46-116) 73 U/L (46-116) Creatine Kinase 240 U/L (26-192) Troponin I Quantitative 0.067 ng/mL (0.000-0.055) 0.105 ng/mL (0.000-0.055) VF-Xbz-U-Type Natriuretic Peptide > 77414 pg/mL (0-124) Total Protein 7.1 g/dL (6.4-8.2) 6.3 g/dL (6.4-8.2) Albumin 2.7 g/dL (3.4-5.0) 2.2 g/dL (3.4-5.0) Albumin/Globulin Ratio 0.6 (1.0-1.7) 0.5 (1.0-1.7) Lipase 118 U/L (73-393) Urine Collection Type Unknown Urine Color Yellow Urine Clarity Clear Urine pH 8.0 Urine Specific [place] 1.015 Urine Protein >=300 mg/dL (NEG-TRACE) Urine Glucose (UA) Negative mg/dL (NEG) Urine Ketones (Stick) Negative mg/dL (NEG) Urine Blood Trace (NEG) Urine Nitrite Negative (NEG) Urine Bilirubin Negative (NEG) Urine Urobilinogen Dipstick 0.2 mg/dL (0.2 mg/dL) Urine Leukocyte Esterase Trace (NEG) Urine RBC Occ /HPF (0-2) Urine WBC 1-4 /HPF (0-4) Urine Bacteria 0 /HPF (0-FEW) Urine Hyaline Casts Occasional /HPF Urine Mucus Slight /LPF Test 12/10/17 12:22 Urine Opiates Screen Neg (NEG) Urine Methadone Screen Neg (NEG) Urine Barbiturates Neg (NEG) Urine Phencyclidine Screen Neg (NEG) Urine Amphetamine/Methamphetamine Neg (NEG) Urine Benzodiazepines Screen Neg (NEG) Urine Cocaine Screen Neg (NEG) Urine Cannabinoids Screen Neg (NEG) Urine Ethyl Alcohol Neg (NEG) Laboratory Tests Test 12/09/17 16:00 12/09/17 17:13 12/09/17 23:30 12/10/17 03:10 White Blood Count 5.9 x10^3/uL (4.0-11.0) 5.4 x10^3/uL (4.0-11.0) Red Blood Count 3.75 x10^6/uL (3.50-5.40) 3.43 x10^6/uL (3.50-5.40) Hemoglobin 11.9 g/dL (12.0-15.5) 10.7 g/dL (12.0-15.5) Hematocrit 35.2 % (36.0-47.0) 32.7 % (36.0-47.0) Mean Corpuscular Volume 94 fL (79-100) 96 fL (79-100) Mean Corpuscular Hemoglobin 32 pg (25-35) 31 pg (25-35) Mean Corpuscular Hemoglobin Concent 34 g/dL (31-37) 33 g/dL (31-37) Red Cell Distribution Width 16.7 % (11.5-14.5) 16.9 % (11.5-14.5) Platelet Count 271 x10^3/uL (140-400) 230 x10^3/uL (140-400) Neutrophils (%) (Auto) 70 % (31-73) 68 % (31-73) Lymphocytes (%) (Auto) 21 % (24-48) 20 % (24-48) Monocytes (%) (Auto) 7 % (0-9) 8 % (0-9) Eosinophils (%) (Auto) 2 % (0-3) 4 % (0-3) Basophils (%) (Auto) 1 % (0-3) 1 % (0-3) Neutrophils # (Auto) 4.1 x10^3uL (1.8-7.7) 3.7 x10^3uL (1.8-7.7) Lymphocytes # (Auto) 1.2 x10^3/uL (1.0-4.8) 1.1 x10^3/uL (1.0-4.8) Monocytes # (Auto) 0.4 x10^3/uL (0.0-1.1) 0.4 x10^3/uL (0.0-1.1) Eosinophils # (Auto) 0.1 x10^3/uL (0.0-0.7) 0.2 x10^3/uL (0.0-0.7) Basophils # (Auto) 0.1 x10^3/uL (0.0-0.2) 0.1 x10^3/uL (0.0-0.2) Prothrombin Time 13.3 SEC (11.7-14.0) Prothromb Time International Ratio 1.1 (0.8-1.1) Sodium Level 143 mmol/L (136-145) 142 mmol/L (136-145) Potassium Level 3.5 mmol/L (3.5-5.1) 3.5 mmol/L (3.5-5.1) Chloride Level 101 mmol/L (98-107) 102 mmol/L (98-107) Carbon Dioxide Level 28 mmol/L (21-32) 30 mmol/L (21-32) Anion Gap 14 (6-14) 10 (6-14) Blood Urea Nitrogen 40 mg/dL (7-20) 41 mg/dL (7-20) Creatinine 5.7 mg/dL (0.6-1.0) 5.9 mg/dL (0.6-1.0) Estimated GFR (Cockcroft-Gault) 7.8 9.0 BUN/Creatinine Ratio 7 (6-20) 7 (6-20) Glucose Level 105 mg/dL (70-99) 87 mg/dL (70-99) Calcium Level 9.9 mg/dL (8.5-10.1) 9.3 mg/dL (8.5-10.1) Total Bilirubin 0.8 mg/dL (0.2-1.0) 0.5 mg/dL (0.2-1.0) Aspartate Amino Transf (AST/SGOT) 21 U/L (15-37) 20 U/L (15-37) Alanine Aminotransferase (ALT/SGPT) 44 U/L (14-59) 38 U/L (14-59) Alkaline Phosphatase 92 U/L (46-116) 73 U/L (46-116) Creatine Kinase 240 U/L (26-192) Troponin I Quantitative 0.067 ng/mL (0.000-0.055) 0.105 ng/mL (0.000-0.055) AE-Kom-J-Type Natriuretic Peptide > 47246 pg/mL (0-124) Total Protein 7.1 g/dL (6.4-8.2) 6.3 g/dL (6.4-8.2) Albumin 2.7 g/dL (3.4-5.0) 2.2 g/dL (3.4-5.0) Albumin/Globulin Ratio 0.6 (1.0-1.7) 0.5 (1.0-1.7) Lipase 118 U/L (73-393) Urine Collection Type Unknown Urine Color Yellow Urine Clarity Clear Urine pH 8.0 Urine Specific [place] 1.015 Urine Protein >=300 mg/dL (NEG-TRACE) Urine Glucose (UA) Negative mg/dL (NEG) Urine Ketones (Stick) Negative mg/dL (NEG) Urine Blood Trace (NEG) Urine Nitrite Negative (NEG) Urine Bilirubin Negative (NEG) Urine Urobilinogen Dipstick 0.2 mg/dL (0.2 mg/dL) Urine Leukocyte Esterase Trace (NEG) Urine RBC Occ /HPF (0-2) Urine WBC 1-4 /HPF (0-4) Urine Bacteria 0 /HPF (0-FEW) Urine Hyaline Casts Occasional /HPF Urine Mucus Slight /LPF Test 12/10/17 12:22 Urine Opiates Screen Neg (NEG) Urine Methadone Screen Neg (NEG) Urine Barbiturates Neg (NEG) Urine Phencyclidine Screen Neg (NEG) Urine Amphetamine/Methamphetamine Neg (NEG) Urine Benzodiazepines Screen Neg (NEG) Urine Cocaine Screen Neg (NEG) Urine Cannabinoids Screen Neg (NEG) Urine Ethyl Alcohol Neg (NEG) Medications Current Medications Aspirin (Children'S Aspirin) 324 mg 1X ONCE PO Last administered on 12/09/17at 16:08; Start 12/09/17 at 16:00; Stop 12/09/17 at 16:06; Status DC Nitroglycerin (Nitrostat) 0.4 mg PRN Q5MIN PRN SL CP RATING > 1/10 Last administered on 12/09/17at 16:16; Start 12/09/17 at 16:00; Stop 12/10/17 at 15:59 Nitroglycerin (Nitrostat) 0.4 mg STK-MED ONCE SL ; Start 12/09/17 at 16:00; Stop 12/09/17 at 16:01; Status DC Nitroglycerin/ Dextrose 250 ml @ 0 mls/hr 1X ONCE IV Last administered on 12/09at 16:29; Start 12/09/17 at 16:30; Stop 12/09/17 at 18:52; Status DC Furosemide (Lasix) 40 mg 1X ONCE IVP Last administered on 12/09/17at 16:45; Start 12/09/17 at 16:45; Stop 12/09/17 at 16:46; Status DC Ondansetron HCl (Zofran) 4 mg PRN Q8HRS PRN IV NAUSEA/VOMITING; Start 12/09/17 at 17:45; Stop 12/10/17 at 17:44 Fentanyl Citrate (Fentanyl 2ml Vial) 50 mcg PRN Q1HR PRN IV PAIN; Start at 17:45; Stop 12/10/17 at 17:44 Acetaminophen (Tylenol) 650 mg PRN Q4HRS PRN PO FEVER; Start 12/09/17 at 17:45 ; Stop 12/10/17 at 17:44 Nicardipine HCl 50 mg/Sodium Chloride 270 ml @ 27 mls/hr CONT PRN IV SEE I/O RECORD Last administered on 12/09/17at 23:32; Start 12/09/17 at 19:00 Furosemide 100 mg/ Sodium Chloride 100 ml @ 5 mls/hr CONT PRN IV SEE I/O RECORD Last administered on 12/09/17at 20:34; Start 12/09/17 at 19:15 Labetalol HCl (Trandate) 200 mg BID PO Last administered on 12/10/17at 08:40; Start 12/09/17 at 21:00; Stop 12/10/17 at 12:52; Status DC Clonazepam (KlonoPIN) 1 mg PRN QHS PRN PO ANXIETY / AGITATION; Start 12/09/17 at 21:15 Clonidine HCl (Catapres) 0.1 mg Q8HRS PO Last administered on 12/10/17at 13:10; Start 12/10/17 at 09:30 Lidocaine/Sodium Bicarbonate (Buffered Lidocaine 1%) 3 ml 1X ONCE INJ Last administered on 12/10/17at 09:50; Start 12/10/17 at 09:30; Stop 12/10/17 at 09:33 ; Status DC Heparin Sodium (Porcine) (Heparin Sodium) 2,600 unit 1X ONCE INT CAT Last administered on 12/10/17at 09:50; Start 12/10/17 at 09:30; Stop 12/10/17 at 09:33 ; Status DC Lidocaine/Sodium Bicarbonate (Buffered Lidocaine 1%) 3 ml STK-MED ONCE .ROUTE ; Start 12/10/17 at 09:30; Stop 12/10/17 at 09:31; Status DC Heparin Sodium (Porcine) (Heparin Sodium) 10,000 unit STK-MED ONCE .ROUTE ; Start 12/10/17 at 09:30; Stop 12/10/17 at 09:32; Status DC Lidocaine/Sodium Bicarbonate (Buffered Lidocaine 1%) 6 ml 1X ONCE INJ ; Start 12/10/17 at 10:15; Stop 12/10/17 at 10:16; Status DC Heparin Sodium (Porcine) (Heparin Sodium) 2,800 unit 1X ONCE INT CAT ; Start at 10:15; Stop 12/10/17 at 10:16; Status DC Labetalol HCl (Trandate) 400 mg BID PO ; Start 12/10/17 at 21:00 Labetalol HCl (Trandate) 200 mg 1X ONCE PO Last administered on 12/10/17at 13: 09; Start 12/10/17 at 13:00; Stop 12/10/17 at 13:01; Status DC Vitals/I & O Vital Sign - Last 24 Hours 12/09/17 12/09/17 12/09/17 12/09/17 15:52 16:04 16:09 16:11 Pulse 111 108 109 104 Resp 24 26 B/P (MAP) 263/155 (191) 279/162 259/151 (187) 259/151 Pulse Ox 85 97 O2 Delivery Room Air 12/09/17 12/09/17 12/09/17 12/09/17 16:15 16:16 16:19 16:29 Pulse 102 104 101 100 Resp 28 26 24 B/P (MAP) 254/137 (176) 254/137 244/132 (169) 242/132 (168) Pulse Ox 96 98 97 O2 Delivery Room Air Room Air Room Air 12/09/17 12/09/17 12/09/17 12/09/17 16:36 16:39 16:44 16:54 Pulse 101 101 100 103 Resp B/P (MAP) 265/137 (179) 254/148 (183) 254/143 (180) 264/159 (194) Pulse Ox 95 96 95 95 O2 Delivery Room Air Room Air Room Air Nasal Cannula O2 Flow Rate 3.0 12/09/17 12/09/17 12/09/17 12/09/17 17:04 17:09 17:14 17:19 Pulse 102 98 103 100 Resp B/P (MAP) 255/151 (185) 256/140 (178) 254/127 (169) 232/132 (165) Pulse Ox 96 96 95 O2 Delivery Nasal Cannula Nasal Cannula Nasal Cannula O2 Flow Rate 3.0 3.0 3.0 12/09/17 12/09/17 12/09/17 12/09/17 17:24 17:29 17:33 17:39 Pulse 103 100 101 102 Resp B/P (MAP) 235/139 (171) 245/130 (168) 232/132 (165) 229/133 (165) Pulse Ox 96 97 98 96 O2 Delivery Nasal Cannula Nasal Cannula Nasal Cannula Nasal Cannula O2 Flow Rate 3.0 3.0 3.0 3.0 12/09/17 12/09/17 12/09/17 12/09/17 17:44 17:51 17:58 18:03 Pulse 103 102 101 102 Resp B/P (MAP) 232/135 (167) 240/137 (171) 237/139 (171) 237/135 (169) Pulse Ox 95 94 95 96 O2 Delivery Nasal Cannula Nasal Cannula Nasal Cannula O2 Flow Rate 3.0 3.0 3.0 3.0 12/09/17 12/09/17 12/09/17 12/09/17 18:09 18:23 18:30 18:34 Pulse 102 101 98 103 Resp B/P (MAP) 233/130 (164) 232/112 (152) 226/114 (151) 233/123 (159) Pulse Ox 93 97 95 94 O2 Delivery Nasal Cannula Nasal Cannula Nasal Cannula Nasal Cannula O2 Flow Rate 3.0 3.0 3.0 3.0 12/09/17 12/09/17 12/09/17 12/09/17 18:39 19:10 19:45 19:50 Temp 97.5 97.5 Pulse 101 98 96 Resp 22 30 B/P (MAP) 240/119 (159) 249/116 (160) 220/110 (146) Pulse Ox 95 97 92 O2 Delivery Nasal Cannula Nasal Cannula Nasal Cannula Nasal Cannula O2 Flow Rate 3.0 3.0 3.0 4.0 12/09/17 12/09/17 12/09/17 12/09/17 19:55 20:00 20:05 20:30 Pulse 94 Resp 32 B/P (MAP) 199/94 (129) 206/91 (129) 173/86 (115) 172/84 (113) Pulse Ox 94 O2 Delivery Nasal Cannula O2 Flow Rate 3.0 12/09/17 12/09/17 12/09/17 12/09/17 20:34 21:00 21:15 21:30 Pulse 95 81 Resp 30 B/P (MAP) 172/84 148/70 (96) 151/68 (95) 141/67 (91) Pulse Ox 90 O2 Delivery Nasal Cannula O2 Flow Rate 3.0 12/09/17 12/09/17 12/09/17 12/09/17 21:45 22:00 23:00 23:35 Pulse 72 76 Resp 30 30 B/P (MAP) 137/72 (93) 150/65 (93) 153/69 (97) Pulse Ox 93 93 O2 Delivery Nasal Cannula Nasal Cannula Nasal Cannula O2 Flow Rate 4.0 4.0 4.0 12/10/17 12/10/17 12/10/17 12/10/17 00:00 00:15 02:00 03:00 Temp 98.2 98.2 Pulse 76 74 71 Resp 30 30 21 B/P (MAP) 133/66 (88) 154/71 (98) 150/69 (96) 172/87 (115) Pulse Ox 96 97 92 O2 Delivery Nasal Cannula Nasal Cannula Nasal Cannula O2 Flow Rate 4.0 4.0 4.0 12/10/17 12/10/17 12/10/1718 04:02 04:07 05:20 05:30 Temp 98.2 98.2 Pulse 70 74 74 Resp 21 27 27 B/P (MAP) 160/76 (104) 199/102 (134) 198/95 (129) Pulse Ox 92 95 95 O2 Delivery Nasal Cannula Nasal Cannula Nasal Cannula Nasal Cannula O2 Flow Rate 4.0 4.0 4.0 4.0 12/10/17 12/10/17 12/10/17 12/10/17 05:45 06:00 07:00 08:00 Pulse 74 Resp 21 B/P (MAP) 196/94 (128) 194/91 (125) 176/80 (112) Pulse Ox 100 O2 Delivery Nasal Cannula Nasal Cannula O2 Flow Rate 4.0 4.0 12/10/17 12/10/17 12/10/17 12/10/17 08:00 08:40 09:00 10:00 Temp 98.2 98.2 Pulse 70 76 86 69 Resp 16 16 21 B/P (MAP) 177/84 (115) 171/81 199/94 (129) 162/83 (109) Pulse Ox 99 96 95 O2 Delivery Nasal Cannula Nasal Cannula Nasal Cannula O2 Flow Rate 4.0 4.0 4.0 12/10/17 12/10/17 12/10/17 12/10/17 10:13 11:00 12:00 12:26 Temp 98.3 98.3 Pulse 73 69 73 Resp 25 24 B/P (MAP) 162/83 173/79 (110) 168/85 (112) Pulse Ox 98 95 O2 Delivery Nasal Cannula Nasal Cannula Nasal Cannula O2 Flow Rate 4.0 4.0 4.0 12/10/17 12/10/17 12/10/17 12/10/17 13:00 13:09 13:10 14:00 Pulse 76 74 76 73 Resp 22 24 B/P (MAP) 166/78 (107) 166/78 166/78 153/74 (100) Pulse Ox 98 97 O2 Delivery Nasal Cannula Nasal Cannula O2 Flow Rate 4.0 4.0 12/10/17 14:15 Pulse 74 B/P (MAP) 150/62 (91) Intake and Output 12/09/17 12/09/17 12/10/17 15:00 23:00 07:00 Intake Total 278 ml Output Total 340 ml 450 ml Balance -340 ml -172 ml JAZMÍN LANG III DO Dec 10, 2017 15:15
[2017-12-10] MEDS: FUROSEMIDE INJ 100 MG in IV NORMAL SALINE 100ML 100 ML IV PRN (15:38)
--- NOTE | 2017-12-10 16:23 | CARD ---
MR#: [id number] Date of Study: 12/10/2017 Ordering Physician: GRETEL ARAUZ, Referring Physician: SUNNY BRISCOE Tech: Love Ibrahim [facility] APPROVED REPORT EXAM: Two-dimensional and M-mode echocardiogram with Doppler and color Doppler. Other Information Quality : GoodHR: 72bpm Rhythm : NSR INDICATION Non STEMI 2D DIMENSIONS Left Atrium(2D)4.5 (1.6-4.0cm)IVSd1.6 (0.7-1.1cm) Aortic Root(2D)2.6 (2.0-3.7cm)LVDd4.8 (3.9-5.9cm) LVOT Diameter1.8 (1.8-2.4cm)PWd1.3 (0.7-1.1cm) LVDs3.0 (2.5-4.0cm)FS (%) 38.4 % SV74.2 ml Aortic Valve AoV Peak Josh.183.6cm/sAoV VTI31.9cm AO Peak GR.13.5mmHgLVOT VTI 22.88cm AO Mean GR.7mmHgAVA (VTI)1.90cm2 Mitral Valve MV E Ahivrrty910.1cm/sMV DECEL [id number] MV A Tvelnbbi37.1cm/sE/A Ratio1.7 MV A [id number] TDI Lateral E' P. V8.43cm/sMedial E' P. V7.02cm/s E/Lateral E'12.9E/Medial E'15.5 Tricuspid Valve TR P. Vgpcmmks525ks/sRAP [id number] TR Peak Gr.[id number] Pulmonary Vein S1 Jgixscvo88.5cm/sS2 Nknepfej35.09cm/s D2 Bkfkaotc55.1cm/sPVa [id number] LEFT VENTRICLE The left ventricle is normal size. There is mild concentric left ventricular hypertrophy. The left ve ntricular systolic function is normal and the ejection fraction is within normal range. The Ejection Fraction is 55-60%. There is normal LV segmental wall motion. Transmitral Doppler flow pattern is Gra de I-abnormal relaxation pattern. RIGHT VENTRICLE The right ventricle is mildly dilated. There is normal right ventricular wall thickness. The right ve ntricular systolic function is normal. ATRIA The left atrium is mildly dilated. The right atrium is mildly dilated. The interatrial septum is inta ct with no evidence for an atrial septal defect or patent foramen ovale as noted on 2-D or Doppler im aging. AORTIC VALVE The aortic valve is thickened but opens well. The aortic valve is trileaflet. Doppler and Color Flow revealed no significant aortic regurgitation. There is no significant aortic valvular stenosis. MITRAL VALVE The mitral valve is normal in structure and function. There is no evidence of mitral valve prolapse. There is no mitral valve stenosis. Doppler and Color Flow revealed mild to moderate mitral regurgitat ion. TRICUSPID VALVE The tricuspid valve is normal in structure and function. Doppler and Color Flow revealed mild to mode rate tricuspid regurgitation. The PA pressure was estimated at 52 mmHg. There is no tricuspid valve p rolapse or vegetation. There is no tricuspid valve stenosis. PULMONIC VALVE The pulmonary valve is normal in structure and function. Doppler and Color Flow revealed no pulmonic valvular regurgitation. There is no pulmonic valvular stenosis. GREAT VESSELS The aortic root is normal in size. The ascending aorta is normal in size. PERICARDIAL EFFUSION There is no evidence of significant pericardial effusion. Critical Notification Critical Value: No <Conclusion> The left ventricle is normal size. The left ventricular systolic function is normal and the ejection fraction is within normal range. The Ejection Fraction is 55-60%. There is mild concentric left ventricular hypertrophy. There is no significant aortic valvular stenosis. Doppler and Color Flow revealed no significant aortic regurgitation. Doppler and Color Flow revealed mild to moderate mitral regurgitation. Doppler and Color Flow revealed mild to moderate tricuspid regurgitation. The PA pressure was estimated at 52 mmHg. Signed by : Fernando Kinney MD Electronically Approved : 12/10/2017 16:22:22
[2017-12-10] MEDS: HEPARIN PF for SUB-Q USE 5,000 UNIT/0.5 ML VIAL. SQ SCH (20:56)
[2017-12-10 22:12] LABS: UR PROTEIN RD 400.8 mg/dL (Not Estab.)
[2017-12-11] VITALS (14 sets, daily range): BP systolic 149–189; BP diastolic 73–96
[2017-12-11] MEDS: FUROSEMIDE INJ 100 MG in IV NORMAL SALINE 100ML 100 ML IV PRN (00:57)
[2017-12-11] MEDS: cloNIDine HCL 0.1 MG TABLET PO SCH ×4 (06:00→22:22)
[2017-12-11 07:40] LABS: BASO % 1 % (0-3); EOS # 0.4 x10^3/uL (0.0-0.7); EOS % 10 % (0-3); HEMATOCRIT 30.6 % (36.0-47.0); LYMPH # 0.8 x10^3/uL (1.0-4.8); LYMPH % 18 % (24-48); MEAN CORPUSCULAR HEMOGLOBIN 31 pg (25-35); MEAN CORPUSCULAR HGB CONC 33 g/dL (31-37); MEAN CORPUSCULAR VOLUME 95 fL (79-100); MONO # 0.4 x10^3/uL (0.0-1.1); MONO % 8 % (0-9); NEUT # 2.9 x10^3uL (1.8-7.7); NEUT % 64 % (31-73); PLATELET COUNT 202 x10^3/uL (140-400); RED BLOOD COUNT 3.21 x10^6/uL (3.50-5.40); RED CELL DISTRIBUTION WIDTH 16.7 % (11.5-14.5); WHITE BLOOD COUNT 4.5 x10^3/uL (4.0-11.0)
[2017-12-11 07:42] LABS: CALCIUM 8.6 mg/dL (8.5-10.1); CREATININE 5.9 mg/dL (0.6-1.0); POTASSIUM 3.7 mmol/L (3.5-5.1)
[2017-12-11] MEDS: HEPARIN PF for SUB-Q USE 5,000 UNIT/0.5 ML VIAL. SQ SCH ×2 (08:16→20:54)
--- NOTE | 2017-12-11 09:10 | PDOC ---
CARDIO Progress Notes Date and Time Date of Service 12/11/17 Time of Evaluation 0903 Subjective Subjective: No Chest Pain, No shortness of breath, No Palpitations, No Dizziness Vitals Vitals Vital Signs Date Time Temp Pulse Resp B/P (MAP) Pulse Ox O2 Delivery O2 Flow Rate FiO2 12/11/17 08:00 Nasal Cannula 2.0 12/11/17 07:00 58 14 173/90 (117) 100 12/11/17 04:13 97.6 97.6 Weight Weight [ ] Input and Output Intake and Output Intake and Output 12/11/17 07:00 Intake Total 1772.79 ml Output Total 1782 ml Balance -9.21 ml Intake Oral 1490 ml IV Total 282.79 ml Output Urine Total 1782 ml # Bowel Movements 1 Laboratory Labs Laboratory Tests Test 12/10/17 12:22 12/11/17 07:25 Urine Protein 400.8 mg/dL (Not Estab.) Urine Random Total Protein 407.0 mg/dL (Not Estab.) Urine Creatinine 81.9 mg/dL (Not Estab.) Urine Protein/Creatinine Ratio 4894 mg/g creat (0-200) Urine Opiates Screen Neg (NEG) Urine Methadone Screen Neg (NEG) Urine Barbiturates Neg (NEG) Urine Phencyclidine Screen Neg (NEG) Urine Amphetamine/Methamphetamine Neg (NEG) Urine Benzodiazepines Screen Neg (NEG) Urine Cocaine Screen Neg (NEG) Urine Cannabinoids Screen Neg (NEG) Urine Ethyl Alcohol Neg (NEG) White Blood Count 4.5 x10^3/uL (4.0-11.0) Red Blood Count 3.21 x10^6/uL (3.50-5.40) Hemoglobin 10.0 g/dL (12.0-15.5) Hematocrit 30.6 % (36.0-47.0) Mean Corpuscular Volume 95 fL (79-100) Mean Corpuscular Hemoglobin 31 pg (25-35) Mean Corpuscular Hemoglobin Concent 33 g/dL (31-37) Red Cell Distribution Width 16.7 % (11.5-14.5) Platelet Count 202 x10^3/uL (140-400) Neutrophils (%) (Auto) 64 % (31-73) Lymphocytes (%) (Auto) 18 % (24-48) Monocytes (%) (Auto) 8 % (0-9) Eosinophils (%) (Auto) 10 % (0-3) Basophils (%) (Auto) 1 % (0-3) Neutrophils # (Auto) 2.9 x10^3uL (1.8-7.7) Lymphocytes # (Auto) 0.8 x10^3/uL (1.0-4.8) Monocytes # (Auto) 0.4 x10^3/uL (0.0-1.1) Eosinophils # (Auto) 0.4 x10^3/uL (0.0-0.7) Basophils # (Auto) 0.0 x10^3/uL (0.0-0.2) Sodium Level 144 mmol/L (136-145) Potassium Level 3.7 mmol/L (3.5-5.1) Chloride Level 106 mmol/L (98-107) Carbon Dioxide Level 31 mmol/L (21-32) Anion Gap 7 (6-14) Blood Urea Nitrogen 47 mg/dL (7-20) Creatinine 5.9 mg/dL (0.6-1.0) Estimated GFR (Cockcroft-Gault) 9.0 Glucose Level 91 mg/dL (70-99) Calcium Level 8.6 mg/dL (8.5-10.1) Physical Exam HEENT: Neck Supple W Full Motion Chest: Symmetric LUNGS: Other (diminished in bases) Heart: S1S2, RRR, other (tele: SR with occasional 3 beat runs of VT) Abdomen: Soft N/T, Other (obese) Extremities: Other (1+ LE edema) Neurology: alert, oriented, follow commands Assessment Assessment 1. NSTEMI --likely demand mediated from hypertensive urgency and renal failure --TTE with preserved LVEF; mild concentric LVH and mild to moderate MR/TR with pulm HTN and PA of 52 mm Hg --2 day MPI to start today 2. hypertensive urgency --improved BP control and off nicardipine 3. acute CHF secondary to acute renal failure --diuretics/fluid management per Nephrology; on lasix gtt 4. acute renal failure --? hemodialysis --per nephrology 5. anemia of chronic disease 6. morbid obesity with BMI of 46 --consider outpatient polysomnography to eval for JOHNNY GRETEL ARAUZ APRN Dec 11, 2017 09:09
[2017-12-11 10:05] LABS: CHOLESTEROL/HDL RATIO 1.6
--- NOTE | 2017-12-11 11:06 | PDOC ---
SUBJECTIVE ROS Pt states feeling very good. No new concerns by nursing, Improved UOP OBJECTIVE Vital Signs Vital Signs Date Time Temp Pulse Resp B/P (MAP) Pulse Ox O2 Delivery O2 Flow Rate FiO2 12/11/17 10:00 60 20 189/96 (127) 99 Nasal Cannula 2.0 12/11/17 08:00 97.4 97.4 I & 0 Intake and Output 12/11/17 07:00 Intake Total 1772.79 ml Output Total 1782 ml Balance -9.21 ml Intake Oral 1490 ml IV Total 282.79 ml Output Urine Total 1782 ml # Bowel Movements 1 PHYSICAL EXAM Physical Exam GEN: NAD HEENT- OM moist, O2 by NC NECK: No JVD CVS: S1S2, Murmur + RESP: Bilat crackles +, Non labored breathing GI: BS + ve, Non Tender, obese : No CVA tenderness, no Suprapubic Tenderness, [place] + Skin No rash Neuro- AxO, grossly Normal DIAGNOSIS/ASSESSMENT Assessment & Plan TOSHIA - Unknown baseline renal function Likely ATN/ Cardiorenal ? Progression of ? CKD Renal US - echogenic Kidneys cw CKD , No significant Microscopic hematuria Oliguric on admission , Improved after Lasix drip increased last night to 10 E-Lytes stable , currently no emergent indication for [employer] Proteinuria- Nephrotic ranges, No sign micr hematuria CESAR for Nephrotic range Proteinuria Ordered HTN Urgency -- On Cardene drip Renal Doppler No significant findings Cardiology following ? CKD- HTNsive Nephrosclerosis US consistent with CKD Shortness of Breath- CxR Pulm edema, BNP elevated ? CHF , Cardiology Consulted Discussed with Patient and RN at bedside COMMENT/RELEVANT DATA Meds Current Medications Medications (Trade) Dose Ordered Sig/Keri Start Time Stop Time Status Last Admin Dose Admin Acetaminophen (Tylenol) 650 mg PRN Q4HRS PRN 12/09/17 17:45 12/10/17 17:44 DC Aspirin (Children'S Aspirin) 324 mg 1X ONCE 12/09/17 16:00 12/09/17 16:06 DC 12/09/17 16:08 324 MG Clonazepam (KlonoPIN) 1 mg PRN QHS PRN 12/09/17 21:15 Clonidine HCl (Catapres) 0.1 mg Q8HRS 12/10/17 09:30 12/11/17 09:09 0.1 MG Fentanyl Citrate (Fentanyl 2ml Vial) 50 mcg PRN Q1HR PRN 12/09/17 17:45 12/10/17 17:44 DC Furosemide (Lasix) 40 mg 1X ONCE 12/09/17 16:45 12/09/17 16:46 DC 12/09/17 16:45 40 MG Furosemide 100 mg/ Sodium Chloride 100 ml @ 5 mls/hr CONT PRN 12/09/17 19:15 12/11/17 00:57 10 MLS/HR Heparin Sodium (Porcine) (Heparin Sodium) 2,800 unit 1X ONCE 12/10/17 10:15 12/10/17 10:16 DC Heparin Sodium (Porcine) (Heparin Sq) 5,000 unit Q12HR 12/10/17 21:00 12/11/17 08:16 5,000 UNIT Labetalol HCl (Trandate) 200 mg 1X ONCE 12/10/17 13:00 12/10/17 13:01 DC 12/10/17 13:09 200 MG Lidocaine/Sodium Bicarbonate (Buffered Lidocaine 1%) 6 ml 1X ONCE 12/10/17 10:15 12/10/17 10:16 DC Nicardipine HCl 50 mg/Sodium Chloride 270 ml @ 27 mls/hr CONT PRN 12/09/17 19:00 12/09/17 23:32 27 MLS/HR Nitroglycerin (Nitrostat) 0.4 mg STK-MED ONCE 12/09/17 16:00 12/09/17 16:01 DC Nitroglycerin/ Dextrose 250 ml @ 0 mls/hr 1X ONCE 12/09/17 16:30 12/09/17 18:52 DC 12/09/17 16:29 1.5 MLS/HR Ondansetron HCl (Zofran) 4 mg PRN Q8HRS PRN 12/09/17 17:45 12/10/17 17:44 DC Lab Laboratory Tests Test 12/10/17 12:22 12/11/17 07:25 Urine Protein 400.8 mg/dL (Not Estab.) Urine Random Total Protein 407.0 mg/dL (Not Estab.) Urine Creatinine 81.9 mg/dL (Not Estab.) Urine Protein/Creatinine Ratio 4894 mg/g creat (0-200) Urine Opiates Screen Neg (NEG) Urine Methadone Screen Neg (NEG) Urine Barbiturates Neg (NEG) Urine Phencyclidine Screen Neg (NEG) Urine Amphetamine/Methamphetamine Neg (NEG) Urine Benzodiazepines Screen Neg (NEG) Urine Cocaine Screen Neg (NEG) Urine Cannabinoids Screen Neg (NEG) Urine Ethyl Alcohol Neg (NEG) White Blood Count 4.5 x10^3/uL (4.0-11.0) Red Blood Count 3.21 x10^6/uL (3.50-5.40) Hemoglobin 10.0 g/dL (12.0-15.5) Hematocrit 30.6 % (36.0-47.0) Mean Corpuscular Volume 95 fL (79-100) Mean Corpuscular Hemoglobin 31 pg (25-35) Mean Corpuscular Hemoglobin Concent 33 g/dL (31-37) Red Cell Distribution Width 16.7 % (11.5-14.5) Platelet Count 202 x10^3/uL (140-400) Neutrophils (%) (Auto) 64 % (31-73) Lymphocytes (%) (Auto) 18 % (24-48) Monocytes (%) (Auto) 8 % (0-9) Eosinophils (%) (Auto) 10 % (0-3) Basophils (%) (Auto) 1 % (0-3) Neutrophils # (Auto) 2.9 x10^3uL (1.8-7.7) Lymphocytes # (Auto) 0.8 x10^3/uL (1.0-4.8) Monocytes # (Auto) 0.4 x10^3/uL (0.0-1.1) Eosinophils # (Auto) 0.4 x10^3/uL (0.0-0.7) Basophils # (Auto) 0.0 x10^3/uL (0.0-0.2) Sodium Level 144 mmol/L (136-145) Potassium Level 3.7 mmol/L (3.5-5.1) Chloride Level 106 mmol/L (98-107) Carbon Dioxide Level 31 mmol/L (21-32) Anion Gap 7 (6-14) Blood Urea Nitrogen 47 mg/dL (7-20) Creatinine 5.9 mg/dL (0.6-1.0) Estimated GFR (Cockcroft-Gault) 9.0 Glucose Level 91 mg/dL (70-99) Calcium Level 8.6 mg/dL (8.5-10.1) Triglycerides Level 44 mg/dL (0-150) Cholesterol Level 163 mg/dL (0-200) LDL Cholesterol, Calculated 49 mg/dL (0-100) VLDL Cholesterol, Calculated 9 mg/dL (0-40) Non-HDL Cholesterol Calculated 58 mg/dL (0-129) HDL Cholesterol 105 mg/dL (40-60) Cholesterol/HDL Ratio 1.6 Results All relevant outside records, renal labs, imaging studies, telemetry/EKG's were reviewed. THADDEUS GOMEZ MD Dec 11, 2017 11:06
[2017-12-11] MEDS ORDERED: REGADENOSON 0.4 MG/5 ML DISP.SYRIN. IV ONE (11:30)
--- NOTE | 2017-12-11 12:18 | PDOC ---
PROGRESS NOTES Chief Complaint Chief Complaint Acute systolic heart failure TOSHIA atn likely on top of CKD as well Hypertensive emergency Ischemic cardiomyopathy History of Present Illness History of Present Illness Pt seen and examined in ICU Dw RN Improved HTN Pt reports feeling better Vitals Vitals Vital Signs Date Time Temp Pulse Resp B/P (MAP) Pulse Ox O2 Delivery O2 Flow Rate FiO2 12/11/17 11:00 60 20 157/86 (109) 99 Nasal Cannula 2.0 12/11/17 08:00 97.4 97.4 Physical Exam General: Alert, Oriented X3, Cooperative, No acute distress Heart: Normal S1, Normal S2, No murmurs Abdomen: Normal bowel sounds, Soft Extremities: No cyanosis, Other (++ edema) Skin: No rashes, No breakdown Labs LABS Laboratory Tests Test 12/10/17 12:22 12/11/17 07:25 Urine Protein 400.8 mg/dL (Not Estab.) Urine Random Total Protein 407.0 mg/dL (Not Estab.) Urine Creatinine 81.9 mg/dL (Not Estab.) Urine Protein/Creatinine Ratio 4894 mg/g creat (0-200) Urine Opiates Screen Neg (NEG) Urine Methadone Screen Neg (NEG) Urine Barbiturates Neg (NEG) Urine Phencyclidine Screen Neg (NEG) Urine Amphetamine/Methamphetamine Neg (NEG) Urine Benzodiazepines Screen Neg (NEG) Urine Cocaine Screen Neg (NEG) Urine Cannabinoids Screen Neg (NEG) Urine Ethyl Alcohol Neg (NEG) White Blood Count 4.5 x10^3/uL (4.0-11.0) Red Blood Count 3.21 x10^6/uL (3.50-5.40) Hemoglobin 10.0 g/dL (12.0-15.5) Hematocrit 30.6 % (36.0-47.0) Mean Corpuscular Volume 95 fL (79-100) Mean Corpuscular Hemoglobin 31 pg (25-35) Mean Corpuscular Hemoglobin Concent 33 g/dL (31-37) Red Cell Distribution Width 16.7 % (11.5-14.5) Platelet Count 202 x10^3/uL (140-400) Neutrophils (%) (Auto) 64 % (31-73) Lymphocytes (%) (Auto) 18 % (24-48) Monocytes (%) (Auto) 8 % (0-9) Eosinophils (%) (Auto) 10 % (0-3) Basophils (%) (Auto) 1 % (0-3) Neutrophils # (Auto) 2.9 x10^3uL (1.8-7.7) Lymphocytes # (Auto) 0.8 x10^3/uL (1.0-4.8) Monocytes # (Auto) 0.4 x10^3/uL (0.0-1.1) Eosinophils # (Auto) 0.4 x10^3/uL (0.0-0.7) Basophils # (Auto) 0.0 x10^3/uL (0.0-0.2) Sodium Level 144 mmol/L (136-145) Potassium Level 3.7 mmol/L (3.5-5.1) Chloride Level 106 mmol/L (98-107) Carbon Dioxide Level 31 mmol/L (21-32) Anion Gap 7 (6-14) Blood Urea Nitrogen 47 mg/dL (7-20) Creatinine 5.9 mg/dL (0.6-1.0) Estimated GFR (Cockcroft-Gault) 9.0 Glucose Level 91 mg/dL (70-99) Calcium Level 8.6 mg/dL (8.5-10.1) Triglycerides Level 44 mg/dL (0-150) Cholesterol Level 163 mg/dL (0-200) LDL Cholesterol, Calculated 49 mg/dL (0-100) VLDL Cholesterol, Calculated 9 mg/dL (0-40) Non-HDL Cholesterol Calculated 58 mg/dL (0-129) HDL Cholesterol 105 mg/dL (40-60) Cholesterol/HDL Ratio 1.6 Review of Systems Review of Systems Denies fever Denies cough Assessment and Plan Assessmemt and Plan Assessment: Acute systolic heart failure TOSHIA atn likely on top of CKD as well Hypertensive emergency Ischemic cardiomyopathy Plan: ICU monitoring May need HD? Appreciated nephro input Lasix IV Nicardipine IV Home meds Labs Comment Review of Relevant I have reviewed the following items batsheva (where applicable) has been applied. Labs Laboratory Tests Test 12/09/17 16:00 12/09/17 17:13 12/09/17 23:30 12/10/17 03:10 White Blood Count 5.9 x10^3/uL (4.0-11.0) 5.4 x10^3/uL (4.0-11.0) Red Blood Count 3.75 x10^6/uL (3.50-5.40) 3.43 x10^6/uL (3.50-5.40) Hemoglobin 11.9 g/dL (12.0-15.5) 10.7 g/dL (12.0-15.5) Hematocrit 35.2 % (36.0-47.0) 32.7 % (36.0-47.0) Mean Corpuscular Volume 94 fL (79-100) 96 fL (79-100) Mean Corpuscular Hemoglobin 32 pg (25-35) 31 pg (25-35) Mean Corpuscular Hemoglobin Concent 34 g/dL (31-37) 33 g/dL (31-37) Red Cell Distribution Width 16.7 % (11.5-14.5) 16.9 % (11.5-14.5) Platelet Count 271 x10^3/uL (140-400) 230 x10^3/uL (140-400) Neutrophils (%) (Auto) 70 % (31-73) 68 % (31-73) Lymphocytes (%) (Auto) 21 % (24-48) 20 % (24-48) Monocytes (%) (Auto) 7 % (0-9) 8 % (0-9) Eosinophils (%) (Auto) 2 % (0-3) 4 % (0-3) Basophils (%) (Auto) 1 % (0-3) 1 % (0-3) Neutrophils # (Auto) 4.1 x10^3uL (1.8-7.7) 3.7 x10^3uL (1.8-7.7) Lymphocytes # (Auto) 1.2 x10^3/uL (1.0-4.8) 1.1 x10^3/uL (1.0-4.8) Monocytes # (Auto) 0.4 x10^3/uL (0.0-1.1) 0.4 x10^3/uL (0.0-1.1) Eosinophils # (Auto) 0.1 x10^3/uL (0.0-0.7) 0.2 x10^3/uL (0.0-0.7) Basophils # (Auto) 0.1 x10^3/uL (0.0-0.2) 0.1 x10^3/uL (0.0-0.2) Prothrombin Time 13.3 SEC (11.7-14.0) Prothromb Time International Ratio 1.1 (0.8-1.1) Sodium Level 143 mmol/L (136-145) 142 mmol/L (136-145) Potassium Level 3.5 mmol/L (3.5-5.1) 3.5 mmol/L (3.5-5.1) Chloride Level 101 mmol/L (98-107) 102 mmol/L (98-107) Carbon Dioxide Level 28 mmol/L (21-32) 30 mmol/L (21-32) Anion Gap 14 (6-14) 10 (6-14) Blood Urea Nitrogen 40 mg/dL (7-20) 41 mg/dL (7-20) Creatinine 5.7 mg/dL (0.6-1.0) 5.9 mg/dL (0.6-1.0) Estimated GFR (Cockcroft-Gault) 7.8 9.0 BUN/Creatinine Ratio 7 (6-20) 7 (6-20) Glucose Level 105 mg/dL (70-99) 87 mg/dL (70-99) Calcium Level 9.9 mg/dL (8.5-10.1) 9.3 mg/dL (8.5-10.1) Total Bilirubin 0.8 mg/dL (0.2-1.0) 0.5 mg/dL (0.2-1.0) Aspartate Amino Transf (AST/SGOT) 21 U/L (15-37) 20 U/L (15-37) Alanine Aminotransferase (ALT/SGPT) 44 U/L (14-59) 38 U/L (14-59) Alkaline Phosphatase 92 U/L (46-116) 73 U/L (46-116) Creatine Kinase 240 U/L (26-192) Troponin I Quantitative 0.067 ng/mL (0.000-0.055) 0.105 ng/mL (0.000-0.055) ND-Hla-X-Type Natriuretic Peptide > 07154 pg/mL (0-124) Total Protein 7.1 g/dL (6.4-8.2) 6.3 g/dL (6.4-8.2) Albumin 2.7 g/dL (3.4-5.0) 2.2 g/dL (3.4-5.0) Albumin/Globulin Ratio 0.6 (1.0-1.7) 0.5 (1.0-1.7) Lipase 118 U/L (73-393) Urine Collection Type Unknown Urine Color Yellow Urine Clarity Clear Urine pH 8.0 Urine Specific [place] 1.015 Urine Protein >=300 mg/dL (NEG-TRACE) Urine Glucose (UA) Negative mg/dL (NEG) Urine Ketones (Stick) Negative mg/dL (NEG) Urine Blood Trace (NEG) Urine Nitrite Negative (NEG) Urine Bilirubin Negative (NEG) Urine Urobilinogen Dipstick 0.2 mg/dL (0.2 mg/dL) Urine Leukocyte Esterase Trace (NEG) Urine RBC Occ /HPF (0-2) Urine WBC 1-4 /HPF (0-4) Urine Bacteria 0 /HPF (0-FEW) Urine Hyaline Casts Occasional /HPF Urine Mucus Slight /LPF Test 12/10/17 12:22 12/11/17 07:25 Urine Protein 400.8 mg/dL (Not Estab.) Urine Random Total Protein 407.0 mg/dL (Not Estab.) Urine Creatinine 81.9 mg/dL (Not Estab.) Urine Protein/Creatinine Ratio 4894 mg/g creat (0-200) Urine Opiates Screen Neg (NEG) Urine Methadone Screen Neg (NEG) Urine Barbiturates Neg (NEG) Urine Phencyclidine Screen Neg (NEG) Urine Amphetamine/Methamphetamine Neg (NEG) Urine Benzodiazepines Screen Neg (NEG) Urine Cocaine Screen Neg (NEG) Urine Cannabinoids Screen Neg (NEG) Urine Ethyl Alcohol Neg (NEG) White Blood Count 4.5 x10^3/uL (4.0-11.0) Red Blood Count 3.21 x10^6/uL (3.50-5.40) Hemoglobin 10.0 g/dL (12.0-15.5) Hematocrit 30.6 % (36.0-47.0) Mean Corpuscular Volume 95 fL (79-100) Mean Corpuscular Hemoglobin 31 pg (25-35) Mean Corpuscular Hemoglobin Concent 33 g/dL (31-37) Red Cell Distribution Width 16.7 % (11.5-14.5) Platelet Count 202 x10^3/uL (140-400) Neutrophils (%) (Auto) 64 % (31-73) Lymphocytes (%) (Auto) 18 % (24-48) Monocytes (%) (Auto) 8 % (0-9) Eosinophils (%) (Auto) 10 % (0-3) Basophils (%) (Auto) 1 % (0-3) Neutrophils # (Auto) 2.9 x10^3uL (1.8-7.7) Lymphocytes # (Auto) 0.8 x10^3/uL (1.0-4.8) Monocytes # (Auto) 0.4 x10^3/uL (0.0-1.1) Eosinophils # (Auto) 0.4 x10^3/uL (0.0-0.7) Basophils # (Auto) 0.0 x10^3/uL (0.0-0.2) Sodium Level 144 mmol/L (136-145) Potassium Level 3.7 mmol/L (3.5-5.1) Chloride Level 106 mmol/L (98-107) Carbon Dioxide Level 31 mmol/L (21-32) Anion Gap 7 (6-14) Blood Urea Nitrogen 47 mg/dL (7-20) Creatinine 5.9 mg/dL (0.6-1.0) Estimated GFR (Cockcroft-Gault) 9.0 Glucose Level 91 mg/dL (70-99) Calcium Level 8.6 mg/dL (8.5-10.1) Triglycerides Level 44 mg/dL (0-150) Cholesterol Level 163 mg/dL (0-200) LDL Cholesterol, Calculated 49 mg/dL (0-100) VLDL Cholesterol, Calculated 9 mg/dL (0-40) Non-HDL Cholesterol Calculated 58 mg/dL (0-129) HDL Cholesterol 105 mg/dL (40-60) Cholesterol/HDL Ratio 1.6 Laboratory Tests Test 12/10/17 12:22 12/11/17 07:25 Urine Protein 400.8 mg/dL (Not Estab.) Urine Random Total Protein 407.0 mg/dL (Not Estab.) Urine Creatinine 81.9 mg/dL (Not Estab.) Urine Protein/Creatinine Ratio 4894 mg/g creat (0-200) Urine Opiates Screen Neg (NEG) Urine Methadone Screen Neg (NEG) Urine Barbiturates Neg (NEG) Urine Phencyclidine Screen Neg (NEG) Urine Amphetamine/Methamphetamine Neg (NEG) Urine Benzodiazepines Screen Neg (NEG) Urine Cocaine Screen Neg (NEG) Urine Cannabinoids Screen Neg (NEG) Urine Ethyl Alcohol Neg (NEG) White Blood Count 4.5 x10^3/uL (4.0-11.0) Red Blood Count 3.21 x10^6/uL (3.50-5.40) Hemoglobin 10.0 g/dL (12.0-15.5) Hematocrit 30.6 % (36.0-47.0) Mean Corpuscular Volume 95 fL (79-100) Mean Corpuscular Hemoglobin 31 pg (25-35) Mean Corpuscular Hemoglobin Concent 33 g/dL (31-37) Red Cell Distribution Width 16.7 % (11.5-14.5) Platelet Count 202 x10^3/uL (140-400) Neutrophils (%) (Auto) 64 % (31-73) Lymphocytes (%) (Auto) 18 % (24-48) Monocytes (%) (Auto) 8 % (0-9) Eosinophils (%) (Auto) 10 % (0-3) Basophils (%) (Auto) 1 % (0-3) Neutrophils # (Auto) 2.9 x10^3uL (1.8-7.7) Lymphocytes # (Auto) 0.8 x10^3/uL (1.0-4.8) Monocytes # (Auto) 0.4 x10^3/uL (0.0-1.1) Eosinophils # (Auto) 0.4 x10^3/uL (0.0-0.7) Basophils # (Auto) 0.0 x10^3/uL (0.0-0.2) Sodium Level 144 mmol/L (136-145) Potassium Level 3.7 mmol/L (3.5-5.1) Chloride Level 106 mmol/L (98-107) Carbon Dioxide Level 31 mmol/L (21-32) Anion Gap 7 (6-14) Blood Urea Nitrogen 47 mg/dL (7-20) Creatinine 5.9 mg/dL (0.6-1.0) Estimated GFR (Cockcroft-Gault) 9.0 Glucose Level 91 mg/dL (70-99) Calcium Level 8.6 mg/dL (8.5-10.1) Triglycerides Level 44 mg/dL (0-150) Cholesterol Level 163 mg/dL (0-200) LDL Cholesterol, Calculated 49 mg/dL (0-100) VLDL Cholesterol, Calculated 9 mg/dL (0-40) Non-HDL Cholesterol Calculated 58 mg/dL (0-129) HDL Cholesterol 105 mg/dL (40-60) Cholesterol/HDL Ratio 1.6 Medications Current Medications Aspirin (Children'S Aspirin) 324 mg 1X ONCE PO Last administered on 12/09/17at 16:08; Start 12/09/17 at 16:00; Stop 12/09/17 at 16:06; Status DC Nitroglycerin (Nitrostat) 0.4 mg PRN Q5MIN PRN SL CP RATING > 1/10 Last administered on 12/09/17at 16:16; Start 12/09/17 at 16:00; Stop 12/10/17 at 15:59 ; Status DC Nitroglycerin (Nitrostat) 0.4 mg STK-MED ONCE SL ; Start 12/09/17 at 16:00; Stop 12/09/17 at 16:01; Status DC Nitroglycerin/ Dextrose 250 ml @ 0 mls/hr 1X ONCE IV Last administered on 12/09at 16:29; Start 12/09/17 at 16:30; Stop 12/09/17 at 18:52; Status DC Furosemide (Lasix) 40 mg 1X ONCE IVP Last administered on 12/09/17at 16:45; Start 12/09/17 at 16:45; Stop 12/09/17 at 16:46; Status DC Ondansetron HCl (Zofran) 4 mg PRN Q8HRS PRN IV NAUSEA/VOMITING; Start 12/09/17 at 17:45; Stop 12/10/17 at 17:44; Status DC Fentanyl Citrate (Fentanyl 2ml Vial) 50 mcg PRN Q1HR PRN IV PAIN; Start at 17:45; Stop 12/10/17 at 17:44; Status DC Acetaminophen (Tylenol) 650 mg PRN Q4HRS PRN PO FEVER; Start 12/09/17 at 17:45 ; Stop 12/10/17 at 17:44; Status DC Nicardipine HCl 50 mg/Sodium Chloride 270 ml @ 27 mls/hr CONT PRN IV SEE I/O RECORD Last administered on 12/09/17at 23:32; Start 12/09/17 at 19:00 Furosemide 100 mg/ Sodium Chloride 100 ml @ 5 mls/hr CONT PRN IV SEE I/O RECORD Last administered on 12/11/17at 00:57; Start 12/09/17 at 19:15 Labetalol HCl (Trandate) 200 mg BID PO Last administered on 12/10/17at 08:40; Start 12/09/17 at 21:00; Stop 12/10/17 at 12:52; Status DC Clonazepam (KlonoPIN) 1 mg PRN QHS PRN PO ANXIETY / AGITATION; Start 12/09/17 at 21:15 Clonidine HCl (Catapres) 0.1 mg Q8HRS PO Last administered on 12/11/17at 09:09; Start 12/10/17 at 09:30 Lidocaine/Sodium Bicarbonate (Buffered Lidocaine 1%) 3 ml 1X ONCE INJ Last administered on 12/10/17at 09:50; Start 12/10/17 at 09:30; Stop 12/10/17 at 09:33 ; Status DC Heparin Sodium (Porcine) (Heparin Sodium) 2,600 unit 1X ONCE INT CAT Last administered on 12/10/17at 09:50; Start 12/10/17 at 09:30; Stop 12/10/17 at 09:33 ; Status DC Lidocaine/Sodium Bicarbonate (Buffered Lidocaine 1%) 3 ml STK-MED ONCE .ROUTE ; Start 12/10/17 at 09:30; Stop 12/10/17 at 09:31; Status DC Heparin Sodium (Porcine) (Heparin Sodium) 10,000 unit STK-MED ONCE .ROUTE ; Start 12/10/17 at 09:30; Stop 12/10/17 at 09:32; Status DC Lidocaine/Sodium Bicarbonate (Buffered Lidocaine 1%) 6 ml 1X ONCE INJ ; Start 12/10/17 at 10:15; Stop 12/10/17 at 10:16; Status DC Heparin Sodium (Porcine) (Heparin Sodium) 2,800 unit 1X ONCE INT CAT ; Start at 10:15; Stop 12/10/17 at 10:16; Status DC Labetalol HCl (Trandate) 400 mg BID PO Last administered on 12/10/17at 20:51; Start 12/10/17 at 21:00 Labetalol HCl (Trandate) 200 mg 1X ONCE PO Last administered on 12/10/17at 13: 09; Start 12/10/17 at 13:00; Stop 12/10/17 at 13:01; Status DC Heparin Sodium (Porcine) (Heparin Sq) 5,000 unit Q12HR SQ Last administered on 12/11/17at 08:16; Start 12/10/17 at 21:00 Regadenoson (Lexiscan) 0.4 mg 1X ONCE IV Last administered on 12/11/17at 12:05 ; Start 12/11/17 at 11:30; Stop 12/11/17 at 11:31; Status DC Vitals/I & O Vital Sign - Last 24 Hours 12/10/17 12/10/17 12/10/17 12/10/17 12:26 13:00 13:09 13:10 Temp 98.3 98.3 Pulse 73 76 74 76 Resp 22 B/P (MAP) 168/85 (112) 166/78 (107) 166/78 166/78 Pulse Ox 95 98 O2 Delivery Nasal Cannula Nasal Cannula O2 Flow Rate 4.0 4.0 12/10/17 12/10/17 12/10/17 12/10/17 14:00 14:15 16:00 16:00 Temp 98.4 98.4 Pulse 73 74 72 Resp 21 B/P (MAP) 153/74 (100) 150/62 (91) 168/80 (109) Pulse Ox 97 100 O2 Delivery Nasal Cannula Nasal Cannula Nasal Cannula O2 Flow Rate 4.0 4.0 4.0 12/10/17 12/10/17 12/10/17 12/10/17 17:00 18:00 19:43 20:00 Temp 97.7 97.7 Pulse 72 72 63 Resp B/P (MAP) 148/70 (96) 171/81 (111) 147/63 (91) Pulse Ox 97 96 97 O2 Delivery Nasal Cannula Nasal Cannula Nasal Cannula Nasal Cannula O2 Flow Rate 2.0 2.0 2.0 2.0 12/10/17 12/10/17 12/10/17 12/10/17 20:13 20:51 21:07 22:08 Pulse 65 69 71 67 Resp 21 30 B/P (MAP) 149/65 (93) 158/72 167/93 (117) 142/70 Pulse Ox 96 97 O2 Delivery Nasal Cannula Nasal Cannula O2 Flow Rate 2.0 2.0 12/10/17 12/10/17 12/11/17 12/11/17 22:09 23:00 00:00 00:00 Pulse 71 58 55 Resp 30 22 19 B/P (MAP) 142/70 (94) 144/70 (94) 152/74 (100) Pulse Ox 97 98 98 O2 Delivery Nasal Cannula Nasal Cannula Nasal Cannula Nasal Cannula O2 Flow Rate 2.0 2.0 2.0 2.0 12/11/17 12/11/17 12/11/17 12/11/17 01:23 02:20 03:28 03:37 Temp 97.9 97.9 Pulse 57 56 54 Resp 18 19 16 B/P (MAP) 155/80 (105) 164/73 (103) 160/81 (107) Pulse Ox 100 100 99 O2 Delivery Nasal Cannula Nasal Cannula Nasal Cannula Nasal Cannula O2 Flow Rate 2.0 2.0 2.0 2.0 12/11/17 12/11/17 12/11/17 12/11/17 04:13 05:04 05:55 07:00 Temp 97.6 97.6 Pulse 59 55 50 58 Resp 28 17 12 14 B/P (MAP) 163/92 (115) 169/96 (120) 163/85 (111) 173/90 (117) Pulse Ox 99 99 98 100 O2 Delivery Nasal Cannula Nasal Cannula Nasal Cannula Nasal Cannula O2 Flow Rate 2.0 2.0 2.0 2.0 12/11/17 12/11/17 12/11/17 12/11/17 08:00 08:00 09:00 09:09 Temp 97.4 97.4 Pulse 58 64 64 Resp 19 23 B/P (MAP) 159/92 (114) 169/86 (113) 169/86 Pulse Ox 100 99 O2 Delivery Nasal Cannula Nasal Cannula Nasal Cannula O2 Flow Rate 2.0 2.0 2.0 12/11/17 12/11/17 10:00 11:00 Pulse 60 60 Resp 20 20 B/P (MAP) 189/96 (127) 157/86 (109) Pulse Ox 99 99 O2 Delivery Nasal Cannula Nasal Cannula O2 Flow Rate 2.0 2.0 Intake and Output 12/10/17 12/10/17 12/11/17 15:00 23:00 07:00 Intake Total 1359.66 ml 295.79 ml 117.34 ml Output Total 353 ml 569 ml 860 ml Balance 1006.66 ml -273.21 ml -742.66 ml JAZMÍN LANG III DO Dec 11, 2017 12:18
[2017-12-11 13:48] LABS: ALBUMIN 2.1 g/dL (3.4-5.0); ALBUMIN/GLOBULIN RATIO 0.6 (1.0-1.7); CALCIUM 8.5 mg/dL (8.5-10.1); GFR 8.8; POTASSIUM 3.9 mmol/L (3.5-5.1); TOTAL BILIRUBIN 0.5 mg/dL (0.2-1.0); TOTAL PROTEIN 5.4 g/dL (6.4-8.2)
[2017-12-11] MEDS: LABETALOL HCL 200 MG TABLET PO SCH ×2 (16:05→20:49)
[2017-12-12] VITALS (8 sets, daily range): BP systolic 138–185; BP diastolic 59–84
[2017-12-12 00:12] LABS: C3 COMPLEMENT 124 mg/dL (82-167); C4 COMPLEMENT 27 mg/dL (14-44)
[2017-12-12 04:47] LABS: BASO # 0.1 x10^3/uL (0.0-0.2); BASO % 2 % (0-3); EOS # 0.5 x10^3/uL (0.0-0.7); EOS % 9 % (0-3); HEMATOCRIT 29.2 % (36.0-47.0); HEMOGLOBIN 9.6 g/dL (12.0-15.5); LYMPH % 19 % (24-48); MEAN CORPUSCULAR HEMOGLOBIN 31 pg (25-35); MEAN CORPUSCULAR HGB CONC 33 g/dL (31-37); MEAN CORPUSCULAR VOLUME 95 fL (79-100); MONO # 0.5 x10^3/uL (0.0-1.1); MONO % 9 % (0-9); NEUT # 3.3 x10^3uL (1.8-7.7); NEUT % 62 % (31-73); PLATELET COUNT 208 x10^3/uL (140-400); RED BLOOD COUNT 3.07 x10^6/uL (3.50-5.40); RED CELL DISTRIBUTION WIDTH 17.2 % (11.5-14.5); WHITE BLOOD COUNT 5.3 x10^3/uL (4.0-11.0)
[2017-12-12] MEDS: cloNIDine HCL 0.1 MG TABLET PO SCH (05:56)
[2017-12-12] MEDS: LABETALOL HCL 200 MG TABLET PO SCH ×2 (08:15→21:29)
[2017-12-12] MEDS: HEPARIN PF for SUB-Q USE 5,000 UNIT/0.5 ML VIAL. SQ SCH ×2 (08:19→21:33)
--- NOTE | 2017-12-12 09:45 | PDOC ---
SUBJECTIVE ROS No new concerns or complaints OBJECTIVE Vital Signs Vital Signs Date Time Temp Pulse Resp B/P (MAP) Pulse Ox O2 Delivery O2 Flow Rate FiO2 12/12/17 08:15 60 185/84 12/12/17 08:00 98.1 95 Nasal Cannula 2.0 98.1 12/12/17 03:06 18 I & 0 Intake and Output 12/12/17 07:00 Intake Total 2420 ml Output Total 2555 ml Balance -135 ml Intake Oral 2420 ml Output Urine Total 2555 ml # Voids 1 PHYSICAL EXAM Physical Exam GEN: NAD HEENT- OM moist, O2 by NC NECK: No JVD CVS: S1S2, Murmur + RESP: Bilat crackles +, Non labored breathing GI: BS + ve, Non Tender, obese : No CVA tenderness, no Suprapubic Tenderness, [place] + Skin No rash Neuro- AxO, grossly Normal DIAGNOSIS/ASSESSMENT Assessment & Plan TOSHIA - Unknown baseline renal function , stable currently Likely ATN/ Cardiorenal ? CKD baseline Renal US - echogenic Kidneys cw CKD , No significant Microscopic hematuria Oliguric on admission , Improved with Lasix drip - will dc and monitor E-Lytes stable , currently no emergent indication for [employer] Proteinuria- Nephrotic ranges, No sign micr hematuria CESAR for Nephrotic Proteinuria pending Hepatitis Negative HTN Urgency -- On Cardene drip prn Renal Doppler No significant findings Cardiology following ? CKD- HTNsive Nephrosclerosis US consistent with CKD Shortness of Breath- CxR Pulm edema, BNP elevated TTE with preserved LVEF; mild concentric LVH and mild to moderate MR/TR with pulm HTN and PA of 52 mm Hg Stress test today Cardiology following Discussed with Patient and RN at bedside COMMENT/RELEVANT DATA Meds Current Medications Medications (Trade) Dose Ordered Sig/Keri Start Time Stop Time Status Last Admin Dose Admin Acetaminophen (Tylenol) 650 mg PRN Q4HRS PRN 12/09/17 17:45 12/10/17 17:44 DC Aspirin (Children'S Aspirin) 324 mg 1X ONCE 12/09/17 16:00 12/09/17 16:06 DC 12/09/17 16:08 324 MG Clonazepam (KlonoPIN) 1 mg PRN QHS PRN 12/09/17 21:15 12/11/17 20:49 1 MG Clonidine HCl (Catapres) 0.1 mg Q8HRS 12/10/17 09:30 12/12/17 05:56 0.1 MG Fentanyl Citrate (Fentanyl 2ml Vial) 50 mcg PRN Q1HR PRN 12/09/17 17:45 12/10/17 17:44 DC Furosemide (Lasix) 40 mg 1X ONCE 12/09/17 16:45 12/09/17 16:46 DC 12/09/17 16:45 40 MG Furosemide 100 mg/ Sodium Chloride 100 ml @ 5 mls/hr CONT PRN 12/09/17 19:15 12/11/17 00:57 10 MLS/HR Heparin Sodium (Porcine) (Heparin Sodium) 2,800 unit 1X ONCE 12/10/17 10:15 12/10/17 10:16 DC Heparin Sodium (Porcine) (Heparin Sq) 5,000 unit Q12HR 12/10/17 21:00 12/12/17 08:19 5,000 UNIT Labetalol HCl (Trandate) 200 mg 1X ONCE 12/10/17 13:00 12/10/17 13:01 DC 12/10/17 13:09 200 MG Lidocaine/Sodium Bicarbonate (Buffered Lidocaine 1%) 6 ml 1X ONCE 12/10/17 10:15 12/10/17 10:16 DC Nicardipine HCl 50 mg/Sodium Chloride 270 ml @ 27 mls/hr CONT PRN 12/09/17 19:00 12/09/17 23:32 27 MLS/HR Nitroglycerin (Nitrostat) 0.4 mg STK-MED ONCE 12/09/17 16:00 12/09/17 16:01 DC Nitroglycerin/ Dextrose 250 ml @ 0 mls/hr 1X ONCE 12/09/17 16:30 12/09/17 18:52 DC 12/09/17 16:29 1.5 MLS/HR Ondansetron HCl (Zofran) 4 mg PRN Q8HRS PRN 12/09/17 17:45 12/10/17 17:44 DC Regadenoson (Lexiscan) 0.4 mg 1X ONCE 12/11/17 11:30 12/11/17 11:31 DC 12/11/17 12:05 0.4 MG Lab Laboratory Tests Test 12/11/17 11:40 12/12/17 03:35 Sodium Level 145 mmol/L (136-145) Potassium Level 3.9 mmol/L (3.5-5.1) Chloride Level 106 mmol/L (98-107) Carbon Dioxide Level 29 mmol/L (21-32) Anion Gap 10 (6-14) Blood Urea Nitrogen 45 mg/dL (7-20) Creatinine 6.0 mg/dL (0.6-1.0) Estimated GFR (Cockcroft-Gault) 8.8 BUN/Creatinine Ratio 8 (6-20) Glucose Level 87 mg/dL (70-99) Calcium Level 8.5 mg/dL (8.5-10.1) Total Bilirubin 0.5 mg/dL (0.2-1.0) Aspartate Amino Transf (AST/SGOT) 16 U/L (15-37) Alanine Aminotransferase (ALT/SGPT) 31 U/L (14-59) Alkaline Phosphatase 73 U/L (46-116) Total Protein 5.4 g/dL (6.4-8.2) Albumin 2.1 g/dL (3.4-5.0) Albumin/Globulin Ratio 0.6 (1.0-1.7) Complement C3 124 mg/dL (82-167) Complement C4 27 mg/dL (14-44) Hepatitis B Surface Antigen Nonreactive (Nonreactive) Hepatitis B Surface Antibody Reactive Hepatitis B Core IgM Antibody Nonreactive (Nonreactive) Hepatitis C IgG Antibody Nonreactive (Nonreactive) White Blood Count 5.3 x10^3/uL (4.0-11.0) Red Blood Count 3.07 x10^6/uL (3.50-5.40) Hemoglobin 9.6 g/dL (12.0-15.5) Hematocrit 29.2 % (36.0-47.0) Mean Corpuscular Volume 95 fL (79-100) Mean Corpuscular Hemoglobin 31 pg (25-35) Mean Corpuscular Hemoglobin Concent 33 g/dL (31-37) Red Cell Distribution Width 17.2 % (11.5-14.5) Platelet Count 208 x10^3/uL (140-400) Neutrophils (%) (Auto) 62 % (31-73) Lymphocytes (%) (Auto) 19 % (24-48) Monocytes (%) (Auto) 9 % (0-9) Eosinophils (%) (Auto) 9 % (0-3) Basophils (%) (Auto) 2 % (0-3) Neutrophils # (Auto) 3.3 x10^3uL (1.8-7.7) Lymphocytes # (Auto) 1.0 x10^3/uL (1.0-4.8) Monocytes # (Auto) 0.5 x10^3/uL (0.0-1.1) Eosinophils # (Auto) 0.5 x10^3/uL (0.0-0.7) Basophils # (Auto) 0.1 x10^3/uL (0.0-0.2) Results All relevant outside records, renal labs, imaging studies, telemetry/EKG's were reviewed. THADDEUS GOMEZ MD Dec 12, 2017 09:45
--- NOTE | 2017-12-12 11:13 | RAD ---
MR#: [id number] Date of Study: 12/11/2017 Ordering Physician: GRETEL ARAUZ, Referring Physician: EMORY MONAHAN Tech: HILARIA Spencer APPROVED REPORT Test Type: Pharmacological Stress Nurse/Tech: Nat Pennington Test Indications: CHF Cardiac History: CHF, HTN Medications: See EMR Medical History: See EMR Resting ECG: SR Resting Heart Rate: 61 bpm Resting Blood Pressure: 160/96mmHg Pretest Chest Pain: No chest pain Nurse/Tech Notes Lungs clear with crackles in the bases, Heart tones regular. Consent: The procedure was explained to the patient in lay terms. Informed consent was witnessed. Too eout was entered into [email or web address]. History and Stress Test performed by RT Darryl (R) (N) Pharm. Details Pharmacologic stress testing was performed using 0.4mg per 5ml of regadenoson given intravenously ove r 7-10 seconds. Stress Symptoms No chest pain or symptoms. POST EXERCISE Reason for Termination: Infusion complete Max HR: 72 bpm Max Blood Pressure: 158/85mmHg Chest Pain: No. Arrhythmia: No. ST Change: No. INTERPRETATION Stress EKG Conclusion: The resting EKG shows a sinus rhythm with nonspecific ST-T wave changes. The stress EKG shows no significant changes from baseline. No EKG evidence of stress-induced ischemia. Imaging Protocol IMAGE PROTOCOL: Stress Tc-99m/rest Tc-99m 2 days Rest: Stress: Viability: Radiopharm.Tc99m [id number] Sestamibi [id number] 33mCi Duration 12min. 12min. Img Date 12/12/2017 12/11/2017 Inj-Img [id number]. 60min. Rest Admin Site:IV - Central LineAdministrator:HILARIA Spencer Stress Admin Site: IV - Central LineAdministrator: RT Darryl (R)(N) STRESS DATA End Diast. Vol.159.5mlAv. Heart Rate69.0bpm End Syst. Vol.80.5mlCO Index BSA0.0L/min Myocardial Tobl305.0gEject. Ybeqvebw91.5% Stress Rates Pk. Fill Rate2.37EDV/secLVtime Pk. Fill 240.33msec Pk. Empty Rate2.70ESV/secLVtime Pk. Xqbsk176.71msec /3 Pk. Fill0.72EDV/sec Stress Scores Regional WT1.50Summed WT14.00 Regional WM0.00Summed WM10.00 LV Perfusion The stress scans showed apical thinning. The rest scans showed apical thinning. Nuclear imaging shows no reversible ischemia. Nuclear imaging shows a mild fixed apical defect most consistent with a technical defect. Wall Motion Left ventricular systolic function is mildly decreased at 49% with slight global hypokinesis. TID is elevated at 1.23 LV Perf. Quant 17 Seg. SSS2.50 17 Seg. SRS9.00 17 Seg. SDS0.00 Stress Defect Extent (% LAD)0.00Rest Defect Extent (% LAD)38.10Rev. Defect Extent (% LAD)0.00 Stress Defect Extent (% LCX) 18.75Rest Defect Extent (% LCX)7.50Rev. Defect Extent (% LCX)8.75 Stress Defect Extent (% RCA)0.00Rest Defect Extent (% RCA)0.00Rev. Defect Extent (% RCA)0.00 Stress Defect Extent (% ALFONSO)3.50Rest Defect Extent (% ALFONSO)21.50Rev. Defect Extent (% ALFONSO)1.75 Conclusion 1. No EKG evidence of stressed induced ischemia. 2. Nuclear imaging shows no reversible ischemia. 3. Nuclear imaging shows a small fixed apical defect most consistent with a technical artifact. 4. Left ventricular systolic function is minimally decreased with an ejection fraction of 49% and no regional wall motion abnormalities. 5. Moderately low risk Lexiscan nuclear stress test. Signed by : Fernando Kinney MD Electronically Approved : 12/12/2017 11:11:59
--- NOTE | 2017-12-12 11:38 | PDOC ---
CARDIO Progress Notes Date and Time Date of Service 12/12/2017 Time of Evaluation 1133 Subjective Subjective: No Chest Pain, No shortness of breath, No Palpitations, No Dizziness, Other (persistent lower extremity) Vitals Vitals Vital Signs Date Time Temp Pulse Resp B/P (MAP) Pulse Ox O2 Delivery O2 Flow Rate FiO2 12/12/17 11:26 98.0 60 16 154/71 (98) 95 Nasal Cannula 98.0 12/12/17 08:00 2.0 Weight Weight [ ] Input and Output Intake and Output Intake and Output 12/12/17 07:00 Intake Total 2420 ml Output Total 2555 ml Balance -135 ml Intake Oral 2420 ml Output Urine Total 2555 ml # Voids 1 Laboratory Labs Laboratory Tests Test 12/11/17 11:40 12/12/17 03:35 Sodium Level 145 mmol/L (136-145) Potassium Level 3.9 mmol/L (3.5-5.1) Chloride Level 106 mmol/L (98-107) Carbon Dioxide Level 29 mmol/L (21-32) Anion Gap 10 (6-14) Blood Urea Nitrogen 45 mg/dL (7-20) Creatinine 6.0 mg/dL (0.6-1.0) Estimated GFR (Cockcroft-Gault) 8.8 BUN/Creatinine Ratio 8 (6-20) Glucose Level 87 mg/dL (70-99) Calcium Level 8.5 mg/dL (8.5-10.1) Total Bilirubin 0.5 mg/dL (0.2-1.0) Aspartate Amino Transf (AST/SGOT) 16 U/L (15-37) Alanine Aminotransferase (ALT/SGPT) 31 U/L (14-59) Alkaline Phosphatase 73 U/L (46-116) Total Protein 5.4 g/dL (6.4-8.2) Albumin 2.1 g/dL (3.4-5.0) Albumin/Globulin Ratio 0.6 (1.0-1.7) Complement C3 124 mg/dL (82-167) Complement C4 27 mg/dL (14-44) Hepatitis B Surface Antigen Nonreactive (Nonreactive) Hepatitis B Surface Antibody Reactive Hepatitis B Core IgM Antibody Nonreactive (Nonreactive) Hepatitis C IgG Antibody Nonreactive (Nonreactive) White Blood Count 5.3 x10^3/uL (4.0-11.0) Red Blood Count 3.07 x10^6/uL (3.50-5.40) Hemoglobin 9.6 g/dL (12.0-15.5) Hematocrit 29.2 % (36.0-47.0) Mean Corpuscular Volume 95 fL (79-100) Mean Corpuscular Hemoglobin 31 pg (25-35) Mean Corpuscular Hemoglobin Concent 33 g/dL (31-37) Red Cell Distribution Width 17.2 % (11.5-14.5) Platelet Count 208 x10^3/uL (140-400) Neutrophils (%) (Auto) 62 % (31-73) Lymphocytes (%) (Auto) 19 % (24-48) Monocytes (%) (Auto) 9 % (0-9) Eosinophils (%) (Auto) 9 % (0-3) Basophils (%) (Auto) 2 % (0-3) Neutrophils # (Auto) 3.3 x10^3uL (1.8-7.7) Lymphocytes # (Auto) 1.0 x10^3/uL (1.0-4.8) Monocytes # (Auto) 0.5 x10^3/uL (0.0-1.1) Eosinophils # (Auto) 0.5 x10^3/uL (0.0-0.7) Basophils # (Auto) 0.1 x10^3/uL (0.0-0.2) Physical Exam HEENT: Neck Supple W Full Motion Chest: Symmetric LUNGS: Clear to Auscultation (posteriorly) Heart: S1S2, RRR, other (tele: SR with occasional 3 beat runs of VT) Abdomen: Soft N/T, Other (obese) Extremities: Other (2-3+ LE edema) Neurology: alert, oriented, follow commands Assessment Assessment 1. NSTEMI --likely demand mediated from hypertensive urgency and renal failure --TTE with preserved LVEF; mild concentric LVH and mild to moderate MR/TR with pulm HTN and PA of 52 mm Hg --MPI without reversible ischemia 2. hypertensive urgency --improving control; increase clonidine to 0.2 mg q8h 3. acute CHF secondary to acute renal failure --off IV lasix gtt today --lower extremity edema increased; legs dependent; nephrotic syndrome 4. acute renal failure --Cr has continued to trend upward --per nephrology 5. anemia of chronic disease 6. morbid obesity with BMI of 46 --consider outpatient polysomnography to eval for JOHNNY GRETEL ARAUZ [employer] Dec 12, 2017 11:38
--- NOTE | 2017-12-12 11:48 | PDOC ---
PROGRESS NOTES Chief Complaint Chief Complaint Acute systolic heart failure TOSHIA, ATN likely CKD Hypertensive emergency Ischemic cardiomyopathy History of Present Illness History of Present Illness Pt underwent MPI this AM; awaiting results. She will stay in the hospital through the weekend and her renal fxn will be reassessed on Friday. Last BUN 45 , Cr 6. Will likely undergo HD on Friday, pending renal fxn at that time. Pt seen and examined Pt alert & oriented;affect appropriate VSS Dw RN Improved HTN Pt feeling better Vitals Vitals Vital Signs Date Time Temp Pulse Resp B/P (MAP) Pulse Ox O2 Delivery O2 Flow Rate FiO2 12/12/17 11:26 98.0 60 16 154/71 (98) 95 Nasal Cannula 98.0 12/12/17 08:00 2.0 Physical Exam General: Alert, Oriented X3, Cooperative, No acute distress Heart: Normal S1, Normal S2, No murmurs Abdomen: Normal bowel sounds, Soft Extremities: No cyanosis, Other (++ edema) Skin: No rashes, No breakdown Labs LABS Laboratory Tests Test 12/12/17 03:35 White Blood Count 5.3 x10^3/uL (4.0-11.0) Red Blood Count 3.07 x10^6/uL (3.50-5.40) Hemoglobin 9.6 g/dL (12.0-15.5) Hematocrit 29.2 % (36.0-47.0) Mean Corpuscular Volume 95 fL (79-100) Mean Corpuscular Hemoglobin 31 pg (25-35) Mean Corpuscular Hemoglobin Concent 33 g/dL (31-37) Red Cell Distribution Width 17.2 % (11.5-14.5) Platelet Count 208 x10^3/uL (140-400) Neutrophils (%) (Auto) 62 % (31-73) Lymphocytes (%) (Auto) 19 % (24-48) Monocytes (%) (Auto) 9 % (0-9) Eosinophils (%) (Auto) 9 % (0-3) Basophils (%) (Auto) 2 % (0-3) Neutrophils # (Auto) 3.3 x10^3uL (1.8-7.7) Lymphocytes # (Auto) 1.0 x10^3/uL (1.0-4.8) Monocytes # (Auto) 0.5 x10^3/uL (0.0-1.1) Eosinophils # (Auto) 0.5 x10^3/uL (0.0-0.7) Basophils # (Auto) 0.1 x10^3/uL (0.0-0.2) Review of Systems Review of Systems Pt denies angina, denies weakness. Assessment and Plan Assessmemt and Plan Problems Medical Problems: (1) TOSHIA (acute kidney injury) Status: Acute (2) CHF (congestive heart failure) Status: Acute (3) Hypertensive emergency Status: Acute (4) NSTEMI (non-ST elevated myocardial infarction) Status: Acute Assessment: Acute systolic heart failure TOSHIA, ATN likely CKD Hypertensive emergency Ischemic cardiomyopathy Plan: Awaiting MPI results Cardiac monitoring F/u cardiology; appreciate input Probable HD on Friday for ESRD, TOSHIA; pending renal fxn F/u nephrology; appreciate input PT/OT Hold jozef Comment Review of Relevant I have reviewed the following items batsheva (where applicable) has been applied. Labs Laboratory Tests Test 12/10/17 12:22 12/11/17 07:25 12/11/17 09:11 12/11/17 11:40 Urine Protein 400.8 mg/dL (Not Estab.) Urine Random Total Protein 407.0 mg/dL (Not Estab.) Urine Creatinine 81.9 mg/dL (Not Estab.) Urine Protein/Creatinine Ratio 4894 mg/g creat (0-200) Urine Opiates Screen Neg (NEG) Urine Methadone Screen Neg (NEG) Urine Barbiturates Neg (NEG) Urine Phencyclidine Screen Neg (NEG) Urine Amphetamine/Methamphetamine Neg (NEG) Urine Benzodiazepines Screen Neg (NEG) Urine Cocaine Screen Neg (NEG) Urine Cannabinoids Screen Neg (NEG) Urine Ethyl Alcohol Neg (NEG) White Blood Count 4.5 x10^3/uL (4.0-11.0) Red Blood Count 3.21 x10^6/uL (3.50-5.40) Hemoglobin 10.0 g/dL (12.0-15.5) Hematocrit 30.6 % (36.0-47.0) Mean Corpuscular Volume 95 fL (79-100) Mean Corpuscular Hemoglobin 31 pg (25-35) Mean Corpuscular Hemoglobin Concent 33 g/dL (31-37) Red Cell Distribution Width 16.7 % (11.5-14.5) Platelet Count 202 x10^3/uL (140-400) Neutrophils (%) (Auto) 64 % (31-73) Lymphocytes (%) (Auto) 18 % (24-48) Monocytes (%) (Auto) 8 % (0-9) Eosinophils (%) (Auto) 10 % (0-3) Basophils (%) (Auto) 1 % (0-3) Neutrophils # (Auto) 2.9 x10^3uL (1.8-7.7) Lymphocytes # (Auto) 0.8 x10^3/uL (1.0-4.8) Monocytes # (Auto) 0.4 x10^3/uL (0.0-1.1) Eosinophils # (Auto) 0.4 x10^3/uL (0.0-0.7) Basophils # (Auto) 0.0 x10^3/uL (0.0-0.2) Sodium Level 144 mmol/L (136-145) 145 mmol/L (136-145) Potassium Level 3.7 mmol/L (3.5-5.1) 3.9 mmol/L (3.5-5.1) Chloride Level 106 mmol/L (98-107) 106 mmol/L (98-107) Carbon Dioxide Level 31 mmol/L (21-32) 29 mmol/L (21-32) Anion Gap 7 (6-14) 10 (6-14) Blood Urea Nitrogen 47 mg/dL (7-20) 45 mg/dL (7-20) Creatinine 5.9 mg/dL (0.6-1.0) 6.0 mg/dL (0.6-1.0) Estimated GFR (Cockcroft-Gault) 9.0 8.8 Glucose Level 91 mg/dL (70-99) 87 mg/dL (70-99) Calcium Level 8.6 mg/dL (8.5-10.1) 8.5 mg/dL (8.5-10.1) Triglycerides Level 44 mg/dL (0-150) Cholesterol Level 163 mg/dL (0-200) LDL Cholesterol, Calculated 49 mg/dL (0-100) VLDL Cholesterol, Calculated 9 mg/dL (0-40) Non-HDL Cholesterol Calculated 58 mg/dL (0-129) HDL Cholesterol 105 mg/dL (40-60) Cholesterol/HDL Ratio 1.6 Nasal Screen MRSA (PCR) Negative (Negative) BUN/Creatinine Ratio 8 (6-20) Total Bilirubin 0.5 mg/dL (0.2-1.0) Aspartate Amino Transf (AST/SGOT) 16 U/L (15-37) Alanine Aminotransferase (ALT/SGPT) 31 U/L (14-59) Alkaline Phosphatase 73 U/L (46-116) Total Protein 5.4 g/dL (6.4-8.2) Albumin 2.1 g/dL (3.4-5.0) Albumin/Globulin Ratio 0.6 (1.0-1.7) Complement C3 124 mg/dL (82-167) Complement C4 27 mg/dL (14-44) Hepatitis B Surface Antigen Nonreactive (Nonreactive) Hepatitis B Surface Antibody Reactive Hepatitis B Core IgM Antibody Nonreactive (Nonreactive) Hepatitis C IgG Antibody Nonreactive (Nonreactive) Test 12/12/17 03:35 White Blood Count 5.3 x10^3/uL (4.0-11.0) Red Blood Count 3.07 x10^6/uL (3.50-5.40) Hemoglobin 9.6 g/dL (12.0-15.5) Hematocrit 29.2 % (36.0-47.0) Mean Corpuscular Volume 95 fL (79-100) Mean Corpuscular Hemoglobin 31 pg (25-35) Mean Corpuscular Hemoglobin Concent 33 g/dL (31-37) Red Cell Distribution Width 17.2 % (11.5-14.5) Platelet Count 208 x10^3/uL (140-400) Neutrophils (%) (Auto) 62 % (31-73) Lymphocytes (%) (Auto) 19 % (24-48) Monocytes (%) (Auto) 9 % (0-9) Eosinophils (%) (Auto) 9 % (0-3) Basophils (%) (Auto) 2 % (0-3) Neutrophils # (Auto) 3.3 x10^3uL (1.8-7.7) Lymphocytes # (Auto) 1.0 x10^3/uL (1.0-4.8) Monocytes # (Auto) 0.5 x10^3/uL (0.0-1.1) Eosinophils # (Auto) 0.5 x10^3/uL (0.0-0.7) Basophils # (Auto) 0.1 x10^3/uL (0.0-0.2) Laboratory Tests Test 12/12/17 03:35 White Blood Count 5.3 x10^3/uL (4.0-11.0) Red Blood Count 3.07 x10^6/uL (3.50-5.40) Hemoglobin 9.6 g/dL (12.0-15.5) Hematocrit 29.2 % (36.0-47.0) Mean Corpuscular Volume 95 fL (79-100) Mean Corpuscular Hemoglobin 31 pg (25-35) Mean Corpuscular Hemoglobin Concent 33 g/dL (31-37) Red Cell Distribution Width 17.2 % (11.5-14.5) Platelet Count 208 x10^3/uL (140-400) Neutrophils (%) (Auto) 62 % (31-73) Lymphocytes (%) (Auto) 19 % (24-48) Monocytes (%) (Auto) 9 % (0-9) Eosinophils (%) (Auto) 9 % (0-3) Basophils (%) (Auto) 2 % (0-3) Neutrophils # (Auto) 3.3 x10^3uL (1.8-7.7) Lymphocytes # (Auto) 1.0 x10^3/uL (1.0-4.8) Monocytes # (Auto) 0.5 x10^3/uL (0.0-1.1) Eosinophils # (Auto) 0.5 x10^3/uL (0.0-0.7) Basophils # (Auto) 0.1 x10^3/uL (0.0-0.2) Medications Current Medications Aspirin (Children'S Aspirin) 324 mg 1X ONCE PO Last administered on 12/09/17at 16:08; Start 12/09/17 at 16:00; Stop 12/09/17 at 16:06; Status DC Nitroglycerin (Nitrostat) 0.4 mg PRN Q5MIN PRN SL CP RATING > 1/10 Last administered on 12/09/17at 16:16; Start 12/09/17 at 16:00; Stop 12/10/17 at 15:59 ; Status DC Nitroglycerin (Nitrostat) 0.4 mg STK-MED ONCE SL ; Start 12/09/17 at 16:00; Stop 12/09/17 at 16:01; Status DC Nitroglycerin/ Dextrose 250 ml @ 0 mls/hr 1X ONCE IV Last administered on 12/09at 16:29; Start 12/09/17 at 16:30; Stop 12/09/17 at 18:52; Status DC Furosemide (Lasix) 40 mg 1X ONCE IVP Last administered on 12/09/17at 16:45; Start 12/09/17 at 16:45; Stop 12/09/17 at 16:46; Status DC Ondansetron HCl (Zofran) 4 mg PRN Q8HRS PRN IV NAUSEA/VOMITING; Start 12/09/17 at 17:45; Stop 12/10/17 at 17:44; Status DC Fentanyl Citrate (Fentanyl 2ml Vial) 50 mcg PRN Q1HR PRN IV PAIN; Start at 17:45; Stop 12/10/17 at 17:44; Status DC Acetaminophen (Tylenol) 650 mg PRN Q4HRS PRN PO FEVER; Start 12/09/17 at 17:45 ; Stop 12/10/17 at 17:44; Status DC Nicardipine HCl 50 mg/Sodium Chloride 270 ml @ 27 mls/hr CONT PRN IV SEE I/O RECORD Last administered on 12/09/17at 23:32; Start 12/09/17 at 19:00; Stop 12/12 at 11:19; Status DC Furosemide 100 mg/ Sodium Chloride 100 ml @ 5 mls/hr CONT PRN IV SEE I/O RECORD Last administered on 12/11/17at 00:57; Start 12/09/17 at 19:15 Labetalol HCl (Trandate) 200 mg BID PO Last administered on 12/10/17at 08:40; Start 12/09/17 at 21:00; Stop 12/10/17 at 12:52; Status DC Clonazepam (KlonoPIN) 1 mg PRN QHS PRN PO ANXIETY / AGITATION Last administered on 12/11/17at 20:49; Start 12/09/17 at 21:15 Clonidine HCl (Catapres) 0.1 mg Q8HRS PO Last administered on 12/12/17at 05:56; Start 12/10/17 at 09:30; Stop 12/12/17 at 11:19; Status DC Lidocaine/Sodium Bicarbonate (Buffered Lidocaine 1%) 3 ml 1X ONCE INJ Last administered on 12/10/17at 09:50; Start 12/10/17 at 09:30; Stop 12/10/17 at 09:33 ; Status DC Heparin Sodium (Porcine) (Heparin Sodium) 2,600 unit 1X ONCE INT CAT Last administered on 12/10/17at 09:50; Start 12/10/17 at 09:30; Stop 12/10/17 at 09:33 ; Status DC Lidocaine/Sodium Bicarbonate (Buffered Lidocaine 1%) 3 ml STK-MED ONCE .ROUTE ; Start 12/10/17 at 09:30; Stop 12/10/17 at 09:31; Status DC Heparin Sodium (Porcine) (Heparin Sodium) 10,000 unit STK-MED ONCE .ROUTE ; Start 12/10/17 at 09:30; Stop 12/10/17 at 09:32; Status DC Lidocaine/Sodium Bicarbonate (Buffered Lidocaine 1%) 6 ml 1X ONCE INJ ; Start 12/10/17 at 10:15; Stop 12/10/17 at 10:16; Status DC Heparin Sodium (Porcine) (Heparin Sodium) 2,800 unit 1X ONCE INT CAT ; Start at 10:15; Stop 12/10/17 at 10:16; Status DC Labetalol HCl (Trandate) 400 mg BID PO Last administered on 12/12/17at 08:15; Start 12/10/17 at 21:00 Labetalol HCl (Trandate) 200 mg 1X ONCE PO Last administered on 12/10/17at 13: 09; Start 12/10/17 at 13:00; Stop 12/10/17 at 13:01; Status DC Heparin Sodium (Porcine) (Heparin Sq) 5,000 unit Q12HR SQ Last administered on 12/12/17at 08:19; Start 12/10/17 at 21:00 Regadenoson (Lexiscan) 0.4 mg 1X ONCE IV Last administered on 12/11/17at 12:05 ; Start 12/11/17 at 11:30; Stop 12/11/17 at 11:31; Status DC Clonidine HCl (Catapres) 0.2 mg Q8HRS PO ; Start 12/12/17 at 14:00 Vitals/I & O Vital Sign - Last 24 Hours 12/11/17 12/11/17 12/11/17 12/11/17 15:00 16:04 16:05 19:52 Temp 97.5 98.0 97.5 98.0 Pulse 72 69 71 69 Resp 20 16 B/P (MAP) 179/84 (115) 187/87 187/87 149/83 (105) Pulse Ox 94 93 O2 Delivery Room Air Room Air 12/11/17 12/11/17 12/11/17 12/12/17 20:00 20:49 22:22 00:00 Temp 98.3 98.3 Pulse 69 69 66 Resp 18 B/P (MAP) 149/83 149/83 171/81 (111) Pulse Ox 95 O2 Delivery Nasal Cannula Room Air O2 Flow Rate 2.0 12/12/17 12/12/17 12/12/17 12/12/17 03:06 05:56 08:00 08:00 Temp 98.1 98.1 98.1 98.1 Pulse 67 67 60 Resp 18 B/P (MAP) 166/84 (111) 166/84 185/84 (117) Pulse Ox 95 95 O2 Delivery Room Air Room Air Nasal Cannula O2 Flow Rate 2.0 12/12/17 12/12/17 08:15 11:26 Temp 98.0 98.0 Pulse 60 60 Resp 16 B/P (MAP) 185/84 154/71 (98) Pulse Ox 95 O2 Delivery Nasal Cannula Intake and Output 12/11/17 12/11/17 12/12/17 15:00 23:00 07:00 Intake Total 700 ml 1720 ml Output Total 505 ml 1150 ml 900 ml Balance -505 ml -450 ml 820 ml [id number] LANG III DO Dec 12, 2017 11:47
[2017-12-12] MEDS: cloNIDine HCL 0.2 MG TABLET PO SCH ×2 (14:49→21:28)
[2017-12-12 15:26] LABS: KAPPA FREE 141.5 mg/L (3.3-19.4); KAPPA LAMBDA RATIO 2.02 (0.26-1.65); LAMBDA FREE 70.1 mg/L (5.7-26.3)
[2017-12-12] MEDS: amLODIPine BESYLATE 10 MG TABLET PO SCH (16:37)
[2017-12-13 03:00] VITALS: BP 141/74
[2017-12-13 05:34] LABS: BASO # 0.1 x10^3/uL (0.0-0.2); BASO % 1 % (0-3); EOS # 0.5 x10^3/uL (0.0-0.7); EOS % 12 % (0-3); HEMOGLOBIN 9.7 g/dL (12.0-15.5); LYMPH % 23 % (24-48); MEAN CORPUSCULAR HEMOGLOBIN 32 pg (25-35); MEAN CORPUSCULAR HGB CONC 33 g/dL (31-37); MEAN CORPUSCULAR VOLUME 95 fL (79-100); MONO # 0.4 x10^3/uL (0.0-1.1); MONO % 9 % (0-9); NEUT # 2.4 x10^3uL (1.8-7.7); NEUT % 55 % (31-73); PLATELET COUNT 209 x10^3/uL (140-400); RED BLOOD COUNT 3.04 x10^6/uL (3.50-5.40); RED CELL DISTRIBUTION WIDTH 16.8 % (11.5-14.5); WHITE BLOOD COUNT 4.4 x10^3/uL (4.0-11.0)
[2017-12-13] MEDS: cloNIDine HCL 0.2 MG TABLET PO SCH ×3 (05:40→21:20)
[2017-12-13 07:30] VITALS: BP 146/77
[2017-12-13] MEDS: LABETALOL HCL 200 MG TABLET PO SCH ×2 (08:17→21:21)
[2017-12-13] MEDS: HEPARIN PF for SUB-Q USE 5,000 UNIT/0.5 ML VIAL. SQ SCH ×2 (08:21→21:25)
[2017-12-13 11:00] VITALS: BP 133/63
--- NOTE | 2017-12-13 11:37 | PDOC ---
PROGRESS NOTES Chief Complaint Chief Complaint Acute systolic heart failure TOSHIA, ATN likely CKD Hypertensive emergency Ischemic cardiomyopathy History of Present Illness History of Present Illness Pt seen and examined Pt alert & oriented;affect appropriate VSS Dw RN Pt resistant to possible HD Pt feeling better Vitals Vitals Vital Signs Date Time Temp Pulse Resp B/P (MAP) Pulse Ox O2 Delivery O2 Flow Rate FiO2 12/13/17 11:00 97.5 59 16 133/63 (86) 94 Room Air 97.5 12/13/17 07:30 2.0 Physical Exam General: Alert, Oriented X3, Cooperative, No acute distress Heart: Normal S1, Normal S2, No murmurs Lungs: Clear Abdomen: Normal bowel sounds, Soft Extremities: No clubbing, No cyanosis, Other (++ edema) Skin: No rashes, No breakdown Labs LABS Laboratory Tests Test 12/13/17 05:15 White Blood Count 4.4 x10^3/uL (4.0-11.0) Red Blood Count 3.04 x10^6/uL (3.50-5.40) Hemoglobin 9.7 g/dL (12.0-15.5) Hematocrit 29.0 % (36.0-47.0) Mean Corpuscular Volume 95 fL (79-100) Mean Corpuscular Hemoglobin 32 pg (25-35) Mean Corpuscular Hemoglobin Concent 33 g/dL (31-37) Red Cell Distribution Width 16.8 % (11.5-14.5) Platelet Count 209 x10^3/uL (140-400) Neutrophils (%) (Auto) 55 % (31-73) Lymphocytes (%) (Auto) 23 % (24-48) Monocytes (%) (Auto) 9 % (0-9) Eosinophils (%) (Auto) 12 % (0-3) Basophils (%) (Auto) 1 % (0-3) Neutrophils # (Auto) 2.4 x10^3uL (1.8-7.7) Lymphocytes # (Auto) 1.0 x10^3/uL (1.0-4.8) Monocytes # (Auto) 0.4 x10^3/uL (0.0-1.1) Eosinophils # (Auto) 0.5 x10^3/uL (0.0-0.7) Basophils # (Auto) 0.1 x10^3/uL (0.0-0.2) Review of Systems Review of Systems Denies fever. Denies cough. Assessment and Plan Assessmemt and Plan Assessment: Acute systolic heart failure TOSHIA, ATN likely CKD Hypertensive emergency Ischemic cardiomyopathy Plan: Cardiac monitoring Labs PT/OT Await subspecialist input Home meds Possible HD on Friday Comment Review of Relevant I have reviewed the following items batsheva (where applicable) has been applied. Labs Laboratory Tests Test 12/11/17 11:40 12/12/17 03:35 12/13/17 05:15 Sodium Level 145 mmol/L (136-145) Potassium Level 3.9 mmol/L (3.5-5.1) Chloride Level 106 mmol/L (98-107) Carbon Dioxide Level 29 mmol/L (21-32) Anion Gap 10 (6-14) Blood Urea Nitrogen 45 mg/dL (7-20) Creatinine 6.0 mg/dL (0.6-1.0) Estimated GFR (Cockcroft-Gault) 8.8 BUN/Creatinine Ratio 8 (6-20) Glucose Level 87 mg/dL (70-99) Calcium Level 8.5 mg/dL (8.5-10.1) Total Bilirubin 0.5 mg/dL (0.2-1.0) Aspartate Amino Transf (AST/SGOT) 16 U/L (15-37) Alanine Aminotransferase (ALT/SGPT) 31 U/L (14-59) Alkaline Phosphatase 73 U/L (46-116) Total Protein 5.4 g/dL (6.4-8.2) Albumin 2.1 g/dL (3.4-5.0) Albumin/Globulin Ratio 0.6 (1.0-1.7) Immunoglobulin [place]/Lambda Ratio 2.02 (0.26-1.65) Complement C3 124 mg/dL (82-167) Complement C4 27 mg/dL (14-44) Free [place] Light Chains 141.5 mg/L (3.3-19.4) Free [place] Light Chains 70.1 mg/L (5.7-26.3) Hepatitis B Surface Antigen Nonreactive (Nonreactive) Hepatitis B Surface Antibody Reactive Hepatitis B Core IgM Antibody Nonreactive (Nonreactive) Hepatitis C IgG Antibody Nonreactive (Nonreactive) White Blood Count 5.3 x10^3/uL (4.0-11.0) 4.4 x10^3/uL (4.0-11.0) Red Blood Count 3.07 x10^6/uL (3.50-5.40) 3.04 x10^6/uL (3.50-5.40) Hemoglobin 9.6 g/dL (12.0-15.5) 9.7 g/dL (12.0-15.5) Hematocrit 29.2 % (36.0-47.0) 29.0 % (36.0-47.0) Mean Corpuscular Volume 95 fL (79-100) 95 fL (79-100) Mean Corpuscular Hemoglobin 31 pg (25-35) 32 pg (25-35) Mean Corpuscular Hemoglobin Concent 33 g/dL (31-37) 33 g/dL (31-37) Red Cell Distribution Width 17.2 % (11.5-14.5) 16.8 % (11.5-14.5) Platelet Count 208 x10^3/uL (140-400) 209 x10^3/uL (140-400) Neutrophils (%) (Auto) 62 % (31-73) 55 % (31-73) Lymphocytes (%) (Auto) 19 % (24-48) 23 % (24-48) Monocytes (%) (Auto) 9 % (0-9) 9 % (0-9) Eosinophils (%) (Auto) 9 % (0-3) 12 % (0-3) Basophils (%) (Auto) 2 % (0-3) 1 % (0-3) Neutrophils # (Auto) 3.3 x10^3uL (1.8-7.7) 2.4 x10^3uL (1.8-7.7) Lymphocytes # (Auto) 1.0 x10^3/uL (1.0-4.8) 1.0 x10^3/uL (1.0-4.8) Monocytes # (Auto) 0.5 x10^3/uL (0.0-1.1) 0.4 x10^3/uL (0.0-1.1) Eosinophils # (Auto) 0.5 x10^3/uL (0.0-0.7) 0.5 x10^3/uL (0.0-0.7) Basophils # (Auto) 0.1 x10^3/uL (0.0-0.2) 0.1 x10^3/uL (0.0-0.2) Laboratory Tests Test 12/13/17 05:15 White Blood Count 4.4 x10^3/uL (4.0-11.0) Red Blood Count 3.04 x10^6/uL (3.50-5.40) Hemoglobin 9.7 g/dL (12.0-15.5) Hematocrit 29.0 % (36.0-47.0) Mean Corpuscular Volume 95 fL (79-100) Mean Corpuscular Hemoglobin 32 pg (25-35) Mean Corpuscular Hemoglobin Concent 33 g/dL (31-37) Red Cell Distribution Width 16.8 % (11.5-14.5) Platelet Count 209 x10^3/uL (140-400) Neutrophils (%) (Auto) 55 % (31-73) Lymphocytes (%) (Auto) 23 % (24-48) Monocytes (%) (Auto) 9 % (0-9) Eosinophils (%) (Auto) 12 % (0-3) Basophils (%) (Auto) 1 % (0-3) Neutrophils # (Auto) 2.4 x10^3uL (1.8-7.7) Lymphocytes # (Auto) 1.0 x10^3/uL (1.0-4.8) Monocytes # (Auto) 0.4 x10^3/uL (0.0-1.1) Eosinophils # (Auto) 0.5 x10^3/uL (0.0-0.7) Basophils # (Auto) 0.1 x10^3/uL (0.0-0.2) Medications Current Medications Aspirin (Children'S Aspirin) 324 mg 1X ONCE PO Last administered on 12/09/17at 16:08; Start 12/09/17 at 16:00; Stop 12/09/17 at 16:06; Status DC Nitroglycerin (Nitrostat) 0.4 mg PRN Q5MIN PRN SL CP RATING > 1/10 Last administered on 12/09/17at 16:16; Start 12/09/17 at 16:00; Stop 12/10/17 at 15:59 ; Status DC Nitroglycerin (Nitrostat) 0.4 mg STK-MED ONCE SL ; Start 12/09/17 at 16:00; Stop 12/09/17 at 16:01; Status DC Nitroglycerin/ Dextrose 250 ml @ 0 mls/hr 1X ONCE IV Last administered on 12/09at 16:29; Start 12/09/17 at 16:30; Stop 12/09/17 at 18:52; Status DC Furosemide (Lasix) 40 mg 1X ONCE IVP Last administered on 12/09/17at 16:45; Start 12/09/17 at 16:45; Stop 12/09/17 at 16:46; Status DC Ondansetron HCl (Zofran) 4 mg PRN Q8HRS PRN IV NAUSEA/VOMITING; Start 12/09/17 at 17:45; Stop 12/10/17 at 17:44; Status DC Fentanyl Citrate (Fentanyl 2ml Vial) 50 mcg PRN Q1HR PRN IV PAIN; Start at 17:45; Stop 12/10/17 at 17:44; Status DC Acetaminophen (Tylenol) 650 mg PRN Q4HRS PRN PO FEVER; Start 12/09/17 at 17:45 ; Stop 12/10/17 at 17:44; Status DC Nicardipine HCl 50 mg/Sodium Chloride 270 ml @ 27 mls/hr CONT PRN IV SEE I/O RECORD Last administered on 12/09/17at 23:32; Start 12/09/17 at 19:00; Stop 12/12 at 11:19; Status DC Furosemide 100 mg/ Sodium Chloride 100 ml @ 5 mls/hr CONT PRN IV SEE I/O RECORD Last administered on 12/11/17at 00:57; Start 12/09/17 at 19:15 Labetalol HCl (Trandate) 200 mg BID PO Last administered on 12/10/17at 08:40; Start 12/09/17 at 21:00; Stop 12/10/17 at 12:52; Status DC Clonazepam (KlonoPIN) 1 mg PRN QHS PRN PO ANXIETY / AGITATION Last administered on 12/11/17at 20:49; Start 12/09/17 at 21:15 Clonidine HCl (Catapres) 0.1 mg Q8HRS PO Last administered on 12/12/17at 05:56; Start 12/10/17 at 09:30; Stop 12/12/17 at 11:19; Status DC Lidocaine/Sodium Bicarbonate (Buffered Lidocaine 1%) 3 ml 1X ONCE INJ Last administered on 12/10/17at 09:50; Start 12/10/17 at 09:30; Stop 12/10/17 at 09:33 ; Status DC Heparin Sodium (Porcine) (Heparin Sodium) 2,600 unit 1X ONCE INT CAT Last administered on 12/10/17at 09:50; Start 12/10/17 at 09:30; Stop 12/10/17 at 09:33 ; Status DC Lidocaine/Sodium Bicarbonate (Buffered Lidocaine 1%) 3 ml STK-MED ONCE .ROUTE ; Start 12/10/17 at 09:30; Stop 12/10/17 at 09:31; Status DC Heparin Sodium (Porcine) (Heparin Sodium) 10,000 unit STK-MED ONCE .ROUTE ; Start 12/10/17 at 09:30; Stop 12/10/17 at 09:32; Status DC Lidocaine/Sodium Bicarbonate (Buffered Lidocaine 1%) 6 ml 1X ONCE INJ ; Start 12/10/17 at 10:15; Stop 12/10/17 at 10:16; Status DC Heparin Sodium (Porcine) (Heparin Sodium) 2,800 unit 1X ONCE INT CAT ; Start at 10:15; Stop 12/10/17 at 10:16; Status DC Labetalol HCl (Trandate) 400 mg BID PO Last administered on 12/13/17at 08:17; Start 12/10/17 at 21:00 Labetalol HCl (Trandate) 200 mg 1X ONCE PO Last administered on 12/10/17at 13: 09; Start 12/10/17 at 13:00; Stop 12/10/17 at 13:01; Status DC Heparin Sodium (Porcine) (Heparin Sq) 5,000 unit Q12HR SQ Last administered on 12/13/17at 08:21; Start 12/10/17 at 21:00 Regadenoson (Lexiscan) 0.4 mg 1X ONCE IV Last administered on 12/11/17at 12:05 ; Start 12/11/17 at 11:30; Stop 12/11/17 at 11:31; Status DC Clonidine HCl (Catapres) 0.2 mg Q8HRS PO Last administered on 12/13/17at 05:40; Start 12/12/17 at 14:00 Amlodipine Besylate (Norvasc) 10 mg DAILYWSUP PO Last administered on at 16:37; Start 12/12/17 at 17:00 Vitals/I & O Vital Sign - Last 24 Hours 12/12/17 12/12/17 12/12/17 12/12/17 14:49 14:50 16:00 16:37 Pulse 72 72 72 70 Resp 16 16 B/P (MAP) 176/81 180/84 (116) 180/84 (116) 143/67 Pulse Ox 95 95 O2 Delivery Room Air Room Air 12/12/17 12/12/17 12/12/17 12/12/17 18:59 20:00 21:28 21:29 Pulse 71 66 66 Resp 14 B/P (MAP) 174/59 (97) 174/59 174/59 Pulse Ox 97 O2 Delivery Room Air 12/12/17 12/13/17 12/13/17 12/13/17 23:46 03:00 05:40 07:30 Temp 98.2 98.1 97.9 98.2 98.1 97.9 Pulse 61 60 60 60 Resp 18 20 20 B/P (MAP) 138/72 (94) 141/74 (96) 141/74 146/77 (100) Pulse Ox 91 98 97 O2 Delivery Room Air Nasal Cannula Nasal Cannula O2 Flow Rate 2.0 2.0 12/13/17 12/13/17 12/13/17 07:54 08:17 11:00 Temp 97.5 97.5 Pulse 62 59 Resp 16 B/P (MAP) 146/77 133/63 (86) Pulse Ox 94 O2 Delivery Room Air Room Air Intake and Output 12/12/17 12/12/17 12/13/17 15:00 23:00 07:00 Intake Total 1430 ml 1100 ml 50 ml Output Total 250 ml 750 ml 1000 ml Balance 1180 ml 350 ml -950 ml CASTLE,NIAL K III DO Dec 13, 2017 11:37
[2017-12-13 12:08] LABS: ALBUMIN 2.1 g/dL (3.4-5.0); ALBUMIN/GLOBULIN RATIO 0.5 (1.0-1.7); GFR 8.8; POTASSIUM 4.3 mmol/L (3.5-5.1); TOTAL BILIRUBIN 0.4 mg/dL (0.2-1.0); TOTAL PROTEIN 6.2 g/dL (6.4-8.2)
[2017-12-13] MEDS ORDERED: IV NORMAL SALINE 1000ML BAG 1,000 ML IV PRN ×2 (13:30)
--- NOTE | 2017-12-13 13:32 | PDOC ---
Renal-Progress Notes Subjective Notes Notes SWOLLEN History of Present Illness Hx of present illness STABLE Vitals Vitals Vital Signs Date Time Temp Pulse Resp B/P (MAP) Pulse Ox O2 Delivery O2 Flow Rate FiO2 12/13/17 11:00 97.5 59 16 133/63 (86) 94 Room Air 97.5 12/13/17 07:30 2.0 Weight Weight [ ] I.O. Intake and Output Intake and Output 12/13/17 07:00 Intake Total 2580 ml Output Total 2000 ml Balance 580 ml Intake Oral 2530 ml IV Total 50 ml Output Urine Total 2000 ml Labs Labs Laboratory Tests Test 12/13/17 05:15 White Blood Count 4.4 x10^3/uL (4.0-11.0) Red Blood Count 3.04 x10^6/uL (3.50-5.40) Hemoglobin 9.7 g/dL (12.0-15.5) Hematocrit 29.0 % (36.0-47.0) Mean Corpuscular Volume 95 fL (79-100) Mean Corpuscular Hemoglobin 32 pg (25-35) Mean Corpuscular Hemoglobin Concent 33 g/dL (31-37) Red Cell Distribution Width 16.8 % (11.5-14.5) Platelet Count 209 x10^3/uL (140-400) Neutrophils (%) (Auto) 55 % (31-73) Lymphocytes (%) (Auto) 23 % (24-48) Monocytes (%) (Auto) 9 % (0-9) Eosinophils (%) (Auto) 12 % (0-3) Basophils (%) (Auto) 1 % (0-3) Neutrophils # (Auto) 2.4 x10^3uL (1.8-7.7) Lymphocytes # (Auto) 1.0 x10^3/uL (1.0-4.8) Monocytes # (Auto) 0.4 x10^3/uL (0.0-1.1) Eosinophils # (Auto) 0.5 x10^3/uL (0.0-0.7) Basophils # (Auto) 0.1 x10^3/uL (0.0-0.2) Sodium Level 141 mmol/L (136-145) Potassium Level 4.3 mmol/L (3.5-5.1) Chloride Level 105 mmol/L (98-107) Carbon Dioxide Level 28 mmol/L (21-32) Anion Gap 8 (6-14) Blood Urea Nitrogen 50 mg/dL (7-20) Creatinine 6.0 mg/dL (0.6-1.0) Estimated GFR (Cockcroft-Gault) 8.8 BUN/Creatinine Ratio 8 (6-20) Glucose Level 96 mg/dL (70-99) Calcium Level 9.0 mg/dL (8.5-10.1) Total Bilirubin 0.4 mg/dL (0.2-1.0) Aspartate Amino Transf (AST/SGOT) 16 U/L (15-37) Alanine Aminotransferase (ALT/SGPT) 29 U/L (14-59) Alkaline Phosphatase 64 U/L (46-116) Total Protein 6.2 g/dL (6.4-8.2) Albumin 2.1 g/dL (3.4-5.0) Albumin/Globulin Ratio 0.5 (1.0-1.7) Review of Systems Constitutional: yes: weakness, alert, oriented Ears/Nose/Throat: Yes: no symptom reported Eyes: Yes: no symptom reported Pulmonary: Yes dyspnea Cardiovascular: Yes no symptom reported Gastrointestional: Yes: no symptom reported Genitourinary: Yes: no symptom reported Musculoskeletal: Yes: no symptom reported Skin: Yes no symptom reported Psychiatric/Neurological: Yes: no symptom reported Endocrine: Yes: no symptom reported Physical Exam General Appearance: no apparent distress Skin: warm Respiratory: decreased breath sounds Heart: S1S2, RRR Abdomen: soft Extremities: edema Neurology: alert, oriented, follow commands Musculoskeletal: Other (right knee pain ) Assessment Assessment IMP PROB ESRD CHF HTN EDEMA ANEMIA PLAN FIRST HD TODAY UF ABOUT 2.5-3.0 LITERS CONT TO LOOK FOR RENAL RECOVERY BUT UNLIKELY ON LASIX GTT BUT STILL NOT GETTING ENOUGH NEG FLUID BALANCE IDALMIS ESCOBEDO MD Dec 13, 2017 13:31
[2017-12-13] MEDS ORDERED: DIALYSIS PATIENT. MC PRN ×2 (16:15)
[2017-12-13] MEDS: amLODIPine BESYLATE 10 MG TABLET PO SCH (18:05)
[2017-12-13 19:30] VITALS: BP 148/69
[2017-12-13 23:00] VITALS: BP 131/67
[2017-12-14 03:40] VITALS: BP 134/78
[2017-12-14] MEDS: cloNIDine HCL 0.2 MG TABLET PO SCH ×3 (05:51→21:04)
[2017-12-14 07:05] LABS: BASO % 1 % (0-3); EOS # 0.4 x10^3/uL (0.0-0.7); EOS % 10 % (0-3); HEMATOCRIT 28.4 % (36.0-47.0); HEMOGLOBIN 9.3 g/dL (12.0-15.5); LYMPH # 1.1 x10^3/uL (1.0-4.8); LYMPH % 28 % (24-48); MEAN CORPUSCULAR HEMOGLOBIN 31 pg (25-35); MEAN CORPUSCULAR HGB CONC 33 g/dL (31-37); MEAN CORPUSCULAR VOLUME 95 fL (79-100); MONO # 0.5 x10^3/uL (0.0-1.1); MONO % 12 % (0-9); NEUT # 1.9 x10^3uL (1.8-7.7); NEUT % 49 % (31-73); PLATELET COUNT 205 x10^3/uL (140-400); RED BLOOD COUNT 2.98 x10^6/uL (3.50-5.40); RED CELL DISTRIBUTION WIDTH 16.8 % (11.5-14.5); WHITE BLOOD COUNT 3.9 x10^3/uL (4.0-11.0)
[2017-12-14 07:20] LABS: ALBUMIN 2.1 g/dL (3.4-5.0); ALBUMIN/GLOBULIN RATIO 0.5 (1.0-1.7); CREATININE 4.4 mg/dL (0.6-1.0); GFR 12.6; TOTAL BILIRUBIN 0.4 mg/dL (0.2-1.0); TOTAL PROTEIN 6.5 g/dL (6.4-8.2)
[2017-12-14 07:40] VITALS: BP 157/81
[2017-12-14] MEDS: LABETALOL HCL 200 MG TABLET PO SCH ×2 (07:48→21:04)
[2017-12-14] MEDS: HEPARIN PF for SUB-Q USE 5,000 UNIT/0.5 ML VIAL. SQ SCH ×2 (07:52→21:11)
--- NOTE | 2017-12-14 10:42 | PDOC ---
Renal-Progress Notes Subjective Notes Notes NO NEW COMPLAINTS History of Present Illness Hx of present illness STABLE Vitals Vitals Vital Signs Date Time Temp Pulse Resp B/P (MAP) Pulse Ox O2 Delivery O2 Flow Rate FiO2 12/14/17 07:58 Room Air 12/14/17 07:48 64 157/81 12/14/17 07:40 97.5 20 98 97.5 12/14/17 03:40 2.0 Weight Weight [ ] I.O. Intake and Output Intake and Output 12/14/17 07:00 Intake Total 720 ml Balance 720 ml Intake Oral 720 ml # Voids 2 Labs Labs Laboratory Tests Test 12/14/17 05:45 White Blood Count 3.9 x10^3/uL (4.0-11.0) Red Blood Count 2.98 x10^6/uL (3.50-5.40) Hemoglobin 9.3 g/dL (12.0-15.5) Hematocrit 28.4 % (36.0-47.0) Mean Corpuscular Volume 95 fL (79-100) Mean Corpuscular Hemoglobin 31 pg (25-35) Mean Corpuscular Hemoglobin Concent 33 g/dL (31-37) Red Cell Distribution Width 16.8 % (11.5-14.5) Platelet Count 205 x10^3/uL (140-400) Neutrophils (%) (Auto) 49 % (31-73) Lymphocytes (%) (Auto) 28 % (24-48) Monocytes (%) (Auto) 12 % (0-9) Eosinophils (%) (Auto) 10 % (0-3) Basophils (%) (Auto) 1 % (0-3) Neutrophils # (Auto) 1.9 x10^3uL (1.8-7.7) Lymphocytes # (Auto) 1.1 x10^3/uL (1.0-4.8) Monocytes # (Auto) 0.5 x10^3/uL (0.0-1.1) Eosinophils # (Auto) 0.4 x10^3/uL (0.0-0.7) Basophils # (Auto) 0.0 x10^3/uL (0.0-0.2) Sodium Level 139 mmol/L (136-145) Potassium Level 4.0 mmol/L (3.5-5.1) Chloride Level 103 mmol/L (98-107) Carbon Dioxide Level 28 mmol/L (21-32) Anion Gap 8 (6-14) Blood Urea Nitrogen 32 mg/dL (7-20) Creatinine 4.4 mg/dL (0.6-1.0) Estimated GFR (Cockcroft-Gault) 12.6 BUN/Creatinine Ratio 7 (6-20) Glucose Level 100 mg/dL (70-99) Calcium Level 9.0 mg/dL (8.5-10.1) Total Bilirubin 0.4 mg/dL (0.2-1.0) Aspartate Amino Transf (AST/SGOT) 16 U/L (15-37) Alanine Aminotransferase (ALT/SGPT) 29 U/L (14-59) Alkaline Phosphatase 65 U/L (46-116) Total Protein 6.5 g/dL (6.4-8.2) Albumin 2.1 g/dL (3.4-5.0) Albumin/Globulin Ratio 0.5 (1.0-1.7) Review of Systems Constitutional: yes: weakness, alert, oriented Ears/Nose/Throat: Yes: no symptom reported Eyes: Yes: no symptom reported Pulmonary: Yes dyspnea Cardiovascular: Yes no symptom reported Gastrointestional: Yes: no symptom reported Genitourinary: Yes: no symptom reported Musculoskeletal: Yes: no symptom reported Skin: Yes no symptom reported Psychiatric/Neurological: Yes: no symptom reported Endocrine: Yes: no symptom reported Physical Exam General Appearance: no apparent distress Skin: warm Respiratory: decreased breath sounds Heart: S1S2, RRR Abdomen: soft Extremities: edema Neurology: alert, oriented, follow commands Musculoskeletal: Other Assessment Assessment IMP PROB ESRD CHF HTN EDEMA ANEMIA PLAN HD TOMORROW CONT TO LOOK FOR RENAL RECOVERY BUT UNLIKELY CONT IDALMIS LOCKHART MD Dec 14, 2017 10:42
[2017-12-14 11:45] VITALS: BP 133/64
[2017-12-14 14:14] VITALS: BP 154/72
[2017-12-14] MEDS: amLODIPine BESYLATE 10 MG TABLET PO SCH (17:38)
--- NOTE | 2017-12-14 19:11 | PDOC ---
PROGRESS NOTES Chief Complaint Chief Complaint Acute systolic heart failure TOSHIA, ATN likely CKD Hypertensive emergency Ischemic cardiomyopathy History of Present Illness History of Present Illness Pt seen and examined Pt alert & oriented;affect appropriate VSS Dw RN HD x 1 yesterday Pt feeling well HD tomm Counseled about "dry weight" DC once renal clears pt Vitals Vitals Vital Signs Date Time Temp Pulse Resp B/P (MAP) Pulse Ox O2 Delivery O2 Flow Rate FiO2 12/14/17 17:38 60 173/83 12/14/17 14:14 97.7 16 98 Room Air 97.7 12/14/17 11:45 2.0 Physical Exam General: Alert, Oriented X3, Cooperative, No acute distress Heart: Normal S1, Normal S2, No murmurs Lungs: Clear Abdomen: Normal bowel sounds, Soft Extremities: No clubbing, No cyanosis, Other (++ edema) Skin: No rashes, No breakdown Labs LABS Laboratory Tests Test 12/14/17 05:45 White Blood Count 3.9 x10^3/uL (4.0-11.0) Red Blood Count 2.98 x10^6/uL (3.50-5.40) Hemoglobin 9.3 g/dL (12.0-15.5) Hematocrit 28.4 % (36.0-47.0) Mean Corpuscular Volume 95 fL (79-100) Mean Corpuscular Hemoglobin 31 pg (25-35) Mean Corpuscular Hemoglobin Concent 33 g/dL (31-37) Red Cell Distribution Width 16.8 % (11.5-14.5) Platelet Count 205 x10^3/uL (140-400) Neutrophils (%) (Auto) 49 % (31-73) Lymphocytes (%) (Auto) 28 % (24-48) Monocytes (%) (Auto) 12 % (0-9) Eosinophils (%) (Auto) 10 % (0-3) Basophils (%) (Auto) 1 % (0-3) Neutrophils # (Auto) 1.9 x10^3uL (1.8-7.7) Lymphocytes # (Auto) 1.1 x10^3/uL (1.0-4.8) Monocytes # (Auto) 0.5 x10^3/uL (0.0-1.1) Eosinophils # (Auto) 0.4 x10^3/uL (0.0-0.7) Basophils # (Auto) 0.0 x10^3/uL (0.0-0.2) Sodium Level 139 mmol/L (136-145) Potassium Level 4.0 mmol/L (3.5-5.1) Chloride Level 103 mmol/L (98-107) Carbon Dioxide Level 28 mmol/L (21-32) Anion Gap 8 (6-14) Blood Urea Nitrogen 32 mg/dL (7-20) Creatinine 4.4 mg/dL (0.6-1.0) Estimated GFR (Cockcroft-Gault) 12.6 BUN/Creatinine Ratio 7 (6-20) Glucose Level 100 mg/dL (70-99) Calcium Level 9.0 mg/dL (8.5-10.1) Total Bilirubin 0.4 mg/dL (0.2-1.0) Aspartate Amino Transf (AST/SGOT) 16 U/L (15-37) Alanine Aminotransferase (ALT/SGPT) 29 U/L (14-59) Alkaline Phosphatase 65 U/L (46-116) Total Protein 6.5 g/dL (6.4-8.2) Albumin 2.1 g/dL (3.4-5.0) Albumin/Globulin Ratio 0.5 (1.0-1.7) Assessment and Plan Assessmemt and Plan Problems Medical Problems: (1) TOSHIA (acute kidney injury) Status: Acute (2) CHF (congestive heart failure) Status: Acute (3) Hypertensive emergency Status: Acute (4) NSTEMI (non-ST elevated myocardial infarction) Status: Acute Comment Review of Relevant I have reviewed the following items batsheva (where applicable) has been applied. Labs Laboratory Tests Test 12/13/17 05:15 12/14/17 05:45 White Blood Count 4.4 x10^3/uL (4.0-11.0) 3.9 x10^3/uL (4.0-11.0) Red Blood Count 3.04 x10^6/uL (3.50-5.40) 2.98 x10^6/uL (3.50-5.40) Hemoglobin 9.7 g/dL (12.0-15.5) 9.3 g/dL (12.0-15.5) Hematocrit 29.0 % (36.0-47.0) 28.4 % (36.0-47.0) Mean Corpuscular Volume 95 fL (79-100) 95 fL (79-100) Mean Corpuscular Hemoglobin 32 pg (25-35) 31 pg (25-35) Mean Corpuscular Hemoglobin Concent 33 g/dL (31-37) 33 g/dL (31-37) Red Cell Distribution Width 16.8 % (11.5-14.5) 16.8 % (11.5-14.5) Platelet Count 209 x10^3/uL (140-400) 205 x10^3/uL (140-400) Neutrophils (%) (Auto) 55 % (31-73) 49 % (31-73) Lymphocytes (%) (Auto) 23 % (24-48) 28 % (24-48) Monocytes (%) (Auto) 9 % (0-9) 12 % (0-9) Eosinophils (%) (Auto) 12 % (0-3) 10 % (0-3) Basophils (%) (Auto) 1 % (0-3) 1 % (0-3) Neutrophils # (Auto) 2.4 x10^3uL (1.8-7.7) 1.9 x10^3uL (1.8-7.7) Lymphocytes # (Auto) 1.0 x10^3/uL (1.0-4.8) 1.1 x10^3/uL (1.0-4.8) Monocytes # (Auto) 0.4 x10^3/uL (0.0-1.1) 0.5 x10^3/uL (0.0-1.1) Eosinophils # (Auto) 0.5 x10^3/uL (0.0-0.7) 0.4 x10^3/uL (0.0-0.7) Basophils # (Auto) 0.1 x10^3/uL (0.0-0.2) 0.0 x10^3/uL (0.0-0.2) Sodium Level 141 mmol/L (136-145) 139 mmol/L (136-145) Potassium Level 4.3 mmol/L (3.5-5.1) 4.0 mmol/L (3.5-5.1) Chloride Level 105 mmol/L (98-107) 103 mmol/L (98-107) Carbon Dioxide Level 28 mmol/L (21-32) 28 mmol/L (21-32) Anion Gap 8 (6-14) 8 (6-14) Blood Urea Nitrogen 50 mg/dL (7-20) 32 mg/dL (7-20) Creatinine 6.0 mg/dL (0.6-1.0) 4.4 mg/dL (0.6-1.0) Estimated GFR (Cockcroft-Gault) 8.8 12.6 BUN/Creatinine Ratio 8 (6-20) 7 (6-20) Glucose Level 96 mg/dL (70-99) 100 mg/dL (70-99) Calcium Level 9.0 mg/dL (8.5-10.1) 9.0 mg/dL (8.5-10.1) Total Bilirubin 0.4 mg/dL (0.2-1.0) 0.4 mg/dL (0.2-1.0) Aspartate Amino Transf (AST/SGOT) 16 U/L (15-37) 16 U/L (15-37) Alanine Aminotransferase (ALT/SGPT) 29 U/L (14-59) 29 U/L (14-59) Alkaline Phosphatase 64 U/L (46-116) 65 U/L (46-116) Total Protein 6.2 g/dL (6.4-8.2) 6.5 g/dL (6.4-8.2) Albumin 2.1 g/dL (3.4-5.0) 2.1 g/dL (3.4-5.0) Albumin/Globulin Ratio 0.5 (1.0-1.7) 0.5 (1.0-1.7) Laboratory Tests Test 12/14/17 05:45 White Blood Count 3.9 x10^3/uL (4.0-11.0) Red Blood Count 2.98 x10^6/uL (3.50-5.40) Hemoglobin 9.3 g/dL (12.0-15.5) Hematocrit 28.4 % (36.0-47.0) Mean Corpuscular Volume 95 fL (79-100) Mean Corpuscular Hemoglobin 31 pg (25-35) Mean Corpuscular Hemoglobin Concent 33 g/dL (31-37) Red Cell Distribution Width 16.8 % (11.5-14.5) Platelet Count 205 x10^3/uL (140-400) Neutrophils (%) (Auto) 49 % (31-73) Lymphocytes (%) (Auto) 28 % (24-48) Monocytes (%) (Auto) 12 % (0-9) Eosinophils (%) (Auto) 10 % (0-3) Basophils (%) (Auto) 1 % (0-3) Neutrophils # (Auto) 1.9 x10^3uL (1.8-7.7) Lymphocytes # (Auto) 1.1 x10^3/uL (1.0-4.8) Monocytes # (Auto) 0.5 x10^3/uL (0.0-1.1) Eosinophils # (Auto) 0.4 x10^3/uL (0.0-0.7) Basophils # (Auto) 0.0 x10^3/uL (0.0-0.2) Sodium Level 139 mmol/L (136-145) Potassium Level 4.0 mmol/L (3.5-5.1) Chloride Level 103 mmol/L (98-107) Carbon Dioxide Level 28 mmol/L (21-32) Anion Gap 8 (6-14) Blood Urea Nitrogen 32 mg/dL (7-20) Creatinine 4.4 mg/dL (0.6-1.0) Estimated GFR (Cockcroft-Gault) 12.6 BUN/Creatinine Ratio 7 (6-20) Glucose Level 100 mg/dL (70-99) Calcium Level 9.0 mg/dL (8.5-10.1) Total Bilirubin 0.4 mg/dL (0.2-1.0) Aspartate Amino Transf (AST/SGOT) 16 U/L (15-37) Alanine Aminotransferase (ALT/SGPT) 29 U/L (14-59) Alkaline Phosphatase 65 U/L (46-116) Total Protein 6.5 g/dL (6.4-8.2) Albumin 2.1 g/dL (3.4-5.0) Albumin/Globulin Ratio 0.5 (1.0-1.7) Medications Current Medications Aspirin (Children'S Aspirin) 324 mg 1X ONCE PO Last administered on 12/09/17at 16:08; Start 12/09/17 at 16:00; Stop 12/09/17 at 16:06; Status DC Nitroglycerin (Nitrostat) 0.4 mg PRN Q5MIN PRN SL CP RATING > 1/10 Last administered on 12/09/17at 16:16; Start 12/09/17 at 16:00; Stop 12/10/17 at 15:59 ; Status DC Nitroglycerin (Nitrostat) 0.4 mg STK-MED ONCE SL ; Start 12/09/17 at 16:00; Stop 12/09/17 at 16:01; Status DC Nitroglycerin/ Dextrose 250 ml @ 0 mls/hr 1X ONCE IV Last administered on 12/09at 16:29; Start 12/09/17 at 16:30; Stop 12/09/17 at 18:52; Status DC Furosemide (Lasix) 40 mg 1X ONCE IVP Last administered on 12/09/17at 16:45; Start 12/09/17 at 16:45; Stop 12/09/17 at 16:46; Status DC Ondansetron HCl (Zofran) 4 mg PRN Q8HRS PRN IV NAUSEA/VOMITING; Start 12/09/17 at 17:45; Stop 12/10/17 at 17:44; Status DC Fentanyl Citrate (Fentanyl 2ml Vial) 50 mcg PRN Q1HR PRN IV PAIN; Start at 17:45; Stop 12/10/17 at 17:44; Status DC Acetaminophen (Tylenol) 650 mg PRN Q4HRS PRN PO FEVER; Start 12/09/17 at 17:45 ; Stop 12/10/17 at 17:44; Status DC Nicardipine HCl 50 mg/Sodium Chloride 270 ml @ 27 mls/hr CONT PRN IV SEE I/O RECORD Last administered on 12/09/17at 23:32; Start 12/09/17 at 19:00; Stop 12/12 at 11:19; Status DC Furosemide 100 mg/ Sodium Chloride 100 ml @ 5 mls/hr CONT PRN IV SEE I/O RECORD Last administered on 12/11/17at 00:57; Start 12/09/17 at 19:15 Labetalol HCl (Trandate) 200 mg BID PO Last administered on 12/10/17at 08:40; Start 12/09/17 at 21:00; Stop 12/10/17 at 12:52; Status DC Clonazepam (KlonoPIN) 1 mg PRN QHS PRN PO ANXIETY / AGITATION Last administered on 12/11/17at 20:49; Start 12/09/17 at 21:15 Clonidine HCl (Catapres) 0.1 mg Q8HRS PO Last administered on 12/12/17at 05:56; Start 12/10/17 at 09:30; Stop 12/12/17 at 11:19; Status DC Lidocaine/Sodium Bicarbonate (Buffered Lidocaine 1%) 3 ml 1X ONCE INJ Last administered on 12/10/17at 09:50; Start 12/10/17 at 09:30; Stop 12/10/17 at 09:33 ; Status DC Heparin Sodium (Porcine) (Heparin Sodium) 2,600 unit 1X ONCE INT CAT Last administered on 12/10/17at 09:50; Start 12/10/17 at 09:30; Stop 12/10/17 at 09:33 ; Status DC Lidocaine/Sodium Bicarbonate (Buffered Lidocaine 1%) 3 ml STK-MED ONCE .ROUTE ; Start 12/10/17 at 09:30; Stop 12/10/17 at 09:31; Status DC Heparin Sodium (Porcine) (Heparin Sodium) 10,000 unit STK-MED ONCE .ROUTE ; Start 12/10/17 at 09:30; Stop 12/10/17 at 09:32; Status DC Lidocaine/Sodium Bicarbonate (Buffered Lidocaine 1%) 6 ml 1X ONCE INJ ; Start 12/10/17 at 10:15; Stop 12/10/17 at 10:16; Status DC Heparin Sodium (Porcine) (Heparin Sodium) 2,800 unit 1X ONCE INT CAT ; Start at 10:15; Stop 12/10/17 at 10:16; Status DC Labetalol HCl (Trandate) 400 mg BID PO Last administered on 12/14/17at 07:48; Start 12/10/17 at 21:00 Labetalol HCl (Trandate) 200 mg 1X ONCE PO Last administered on 12/10/17at 13: 09; Start 12/10/17 at 13:00; Stop 12/10/17 at 13:01; Status DC Heparin Sodium (Porcine) (Heparin Sq) 5,000 unit Q12HR SQ Last administered on 12/14/17at 07:52; Start 12/10/17 at 21:00 Regadenoson (Lexiscan) 0.4 mg 1X ONCE IV Last administered on 12/11/17at 12:05 ; Start 12/11/17 at 11:30; Stop 12/11/17 at 11:31; Status DC Clonidine HCl (Catapres) 0.2 mg Q8HRS PO Last administered on 12/14/17at 14:16; Start 12/12/17 at 14:00 Amlodipine Besylate (Norvasc) 10 mg DAILYWSUP PO Last administered on at 17:38; Start 12/12/17 at 17:00 Sodium Chloride 1,000 ml @ 1,000 mls/hr Q1H PRN IV hypotension; Start 12/13/17 at 13:30; Stop 12/13/17 at 19:29; Status DC Sodium Chloride 1,000 ml @ 400 mls/hr Q2H30M PRN IV PATENCY; Start 12/13/17 at 13:30; Stop 12/14/17 at 01:29; Status DC Info (PHARMACY MONITORING -- do not chart) 1 each PRN DAILY PRN MC SEE COMMENTS ; Start 12/13/17 at 16:15; Status UNV Info (PHARMACY MONITORING -- do not chart) 1 each PRN DAILY PRN MC SEE COMMENTS ; Start 12/13/17 at 16:15 Vitals/I & O Vital Sign - Last 24 Hours 12/13/17 12/13/17 12/13/17 12/13/17 19:30 20:50 21:20 21:21 Temp 97.8 97.8 Pulse 69 69 69 Resp 19 B/P (MAP) 148/69 (95) 148/69 148/69 Pulse Ox 96 O2 Delivery Room Air Nasal Cannula O2 Flow Rate 2.0 12/13/17 12/14/17 12/14/17 12/14/17 23:00 03:40 05:51 07:40 Temp 98.2 98.1 97.5 98.2 98.1 97.5 Pulse 68 60 60 63 Resp 19 18 20 B/P (MAP) 131/67 (88) 134/78 (96) 134/78 157/81 (106) Pulse Ox 97 98 98 O2 Delivery Room Air Nasal Cannula Room Air O2 Flow Rate 2.0 2.0 12/14/17 12/14/17 12/14/17 12/14/17 07:48 07:58 11:45 14:14 Temp 97.9 97.7 97.9 97.7 Pulse 64 61 62 Resp 16 16 B/P (MAP) 157/81 133/64 (87) 154/72 (99) Pulse Ox 98 98 O2 Delivery Room Air Nasal Cannula Room Air O2 Flow Rate 2.0 12/14/17 12/14/17 14:16 17:38 Pulse 62 60 B/P (MAP) 154/72 173/83 Intake and Output 12/13/17 12/13/17 12/14/17 15:00 23:00 07:00 Intake Total 400 ml 320 ml Balance 400 ml 320 ml LANG URBINA MD Dec 14, 2017 19:11
[2017-12-14 19:41] VITALS: BP 166/76
[2017-12-14 23:11] VITALS: BP 149/72
[2017-12-15 03:50] VITALS: BP 160/74
[2017-12-15] MEDS: cloNIDine HCL 0.2 MG TABLET PO SCH ×3 (05:15→22:15)
[2017-12-15 05:27] LABS: BASO % 1 % (0-3); EOS # 0.3 x10^3/uL (0.0-0.7); EOS % 8 % (0-3); HEMATOCRIT 27.9 % (36.0-47.0); HEMOGLOBIN 9.2 g/dL (12.0-15.5); LYMPH # 0.9 x10^3/uL (1.0-4.8); LYMPH % 23 % (24-48); MEAN CORPUSCULAR HEMOGLOBIN 31 pg (25-35); MEAN CORPUSCULAR HGB CONC 33 g/dL (31-37); MEAN CORPUSCULAR VOLUME 96 fL (79-100); MONO # 0.4 x10^3/uL (0.0-1.1); MONO % 11 % (0-9); NEUT # 2.3 x10^3uL (1.8-7.7); NEUT % 57 % (31-73); PLATELET COUNT 198 x10^3/uL (140-400); RED BLOOD COUNT 2.92 x10^6/uL (3.50-5.40); RED CELL DISTRIBUTION WIDTH 16.7 % (11.5-14.5)
[2017-12-15 05:40] LABS: CALCIUM 8.9 mg/dL (8.5-10.1); CREATININE 4.7 mg/dL (0.6-1.0); GFR 11.7; POTASSIUM 4.1 mmol/L (3.5-5.1)
[2017-12-15 07:00] VITALS: BP 129/65
[2017-12-15] MEDS: LABETALOL HCL 200 MG TABLET PO SCH ×2 (08:42→22:16)
[2017-12-15] MEDS: HEPARIN PF for SUB-Q USE 5,000 UNIT/0.5 ML VIAL. SQ SCH ×2 (08:46→22:21)
[2017-12-15] MEDS ORDERED: IV NORMAL SALINE 1000ML BAG 1,000 ML IV PRN ×2 (09:07)
[2017-12-15] MEDS ORDERED: DIALYSIS PATIENT. MC PRN ×2 (09:15)
[2017-12-15] MEDS ORDERED: ALBUMIN HUMAN 25% 200 ML IV PRN (09:15)
--- NOTE | 2017-12-15 10:07 | PDOC ---
SUBJECTIVE ROS Seen on HD, tolerating well, wants to go hime Reports very Good UOP OBJECTIVE Vital Signs Vital Signs Date Time Temp Pulse Resp B/P (MAP) Pulse Ox O2 Delivery O2 Flow Rate FiO2 12/15/17 08:42 61 129/65 12/15/17 08:00 Room Air 12/15/17 07:00 97.5 18 99 97.5 12/14/17 11:45 2.0 I & 0 Intake and Output 12/15/17 07:00 Intake Total 700 ml Balance 700 ml Intake Oral 700 ml # Voids 7 PHYSICAL EXAM Physical Exam GEN: NAD HEENT- OM moist, NECK: No JVD CVS: S1S2, Murmur + RESP: Bilat crackles +, Non labored breathing GI: BS + ve, Non Tender, obese : No CVA tenderness, no Suprapubic Tenderness,No christopher Skin No rash Neuro- AxO, grossly Normal DIAGNOSIS/ASSESSMENT Assessment & Plan TOSHIA/ Likely ? ESRD - Unknown baseline renal function , stable currently No Known Past hx Renal US - echogenic Kidneys cw CKD , No significant Microscopic hematuria Oliguric on admission , Improved with Lasix drip Initiated on HD (12/13) 2nd treatment today - seen on HD, tolerating well Continue as Ordered Will need TDC and OP chair time Proteinuria- Nephrotic ranges, No sign micr hematuria CESAR for Nephrotic Proteinuria -Hepatitis Negative K and L - High , ratio high, anemic- could be sec to Renal failure Consult Hem/Onc ' Rest serologies pending HTN Urgency -- BP at goal Was On Cardene drip Renal Doppler No significant findings ? CKD- HTNsive Nephrosclerosis US consistent with CKD Shortness of Breath- CxR Pulm edema, BNP elevated TTE with preserved LVEF; mild concentric LVH and mild to moderate MR/TR with pulm HTN and PA of 52 mm Hg Stress test Cardiology following Multiple discussions with Pt at great length since last week regarding her CKD Dx and related Concerns COMMENT/RELEVANT DATA Meds Current Medications Medications (Trade) Dose Ordered Sig/Keri Start Time Stop Time Status Last Admin Dose Admin Acetaminophen (Tylenol) 650 mg PRN Q4HRS PRN 12/09/17 17:45 12/10/17 17:44 DC Albumin Human 200 ml @ 200 mls/hr 1X PRN PRN 12/15/17 09:15 12/15/17 15:14 Amlodipine Besylate (Norvasc) 10 mg DAILYWSUP 12/12/17 17:00 12/14/17 17:38 10 MG Aspirin (Children'S Aspirin) 324 mg 1X ONCE 12/09/17 16:00 12/09/17 16:06 DC 12/09/17 16:08 324 MG Clonazepam (KlonoPIN) 1 mg PRN QHS PRN 12/09/17 21:15 12/11/17 20:49 1 MG Clonidine HCl (Catapres) 0.2 mg Q8HRS 12/12/17 14:00 12/15/17 05:15 0.2 MG Fentanyl Citrate (Fentanyl 2ml Vial) 50 mcg PRN Q1HR PRN 12/09/17 17:45 12/10/17 17:44 DC Furosemide (Lasix) 40 mg 1X ONCE 12/09/17 16:45 12/09/17 16:46 DC 12/09/17 16:45 40 MG Furosemide 100 mg/ Sodium Chloride 100 ml @ 5 mls/hr CONT PRN 12/09/17 19:15 12/11/17 00:57 10 MLS/HR Heparin Sodium (Porcine) (Heparin Sodium) 2,800 unit 1X ONCE 12/10/17 10:15 12/10/17 10:16 DC Heparin Sodium (Porcine) (Heparin Sq) 5,000 unit Q12HR 12/10/17 21:00 12/15/17 08:46 5,000 UNIT Info (PHARMACY MONITORING -- do not chart) 1 each PRN DAILY PRN 12/15/17 09:15 UNV Labetalol HCl (Trandate) 200 mg 1X ONCE 12/10/17 13:00 12/10/17 13:01 DC 12/10/17 13:09 200 MG Lidocaine/Sodium Bicarbonate (Buffered Lidocaine 1%) 6 ml 1X ONCE 12/10/17 10:15 12/10/17 10:16 DC Nicardipine HCl 50 mg/Sodium Chloride 270 ml @ 27 mls/hr CONT PRN 12/09/17 19:00 12/12/17 11:19 DC 12/09/17 23:32 27 MLS/HR Nitroglycerin (Nitrostat) 0.4 mg STK-MED ONCE 12/09/17 16:00 12/09/17 16:01 DC Nitroglycerin/ Dextrose 250 ml @ 0 mls/hr 1X ONCE 12/09/17 16:30 12/09/17 18:52 DC 12/09/17 16:29 1.5 MLS/HR Ondansetron HCl (Zofran) 4 mg PRN Q8HRS PRN 12/09/17 17:45 12/10/17 17:44 DC Regadenoson (Lexiscan) 0.4 mg 1X ONCE 12/11/17 11:30 12/11/17 11:31 DC 12/11/17 12:05 0.4 MG Sodium Chloride 1,000 ml @ 400 mls/hr Q2H30M PRN 12/15/17 09:07 12/15/17 21:06 Lab Laboratory Tests Test 12/15/17 05:00 White Blood Count 4.0 x10^3/uL (4.0-11.0) Red Blood Count 2.92 x10^6/uL (3.50-5.40) Hemoglobin 9.2 g/dL (12.0-15.5) Hematocrit 27.9 % (36.0-47.0) Mean Corpuscular Volume 96 fL (79-100) Mean Corpuscular Hemoglobin 31 pg (25-35) Mean Corpuscular Hemoglobin Concent 33 g/dL (31-37) Red Cell Distribution Width 16.7 % (11.5-14.5) Platelet Count 198 x10^3/uL (140-400) Neutrophils (%) (Auto) 57 % (31-73) Lymphocytes (%) (Auto) 23 % (24-48) Monocytes (%) (Auto) 11 % (0-9) Eosinophils (%) (Auto) 8 % (0-3) Basophils (%) (Auto) 1 % (0-3) Neutrophils # (Auto) 2.3 x10^3uL (1.8-7.7) Lymphocytes # (Auto) 0.9 x10^3/uL (1.0-4.8) Monocytes # (Auto) 0.4 x10^3/uL (0.0-1.1) Eosinophils # (Auto) 0.3 x10^3/uL (0.0-0.7) Basophils # (Auto) 0.0 x10^3/uL (0.0-0.2) Sodium Level 138 mmol/L (136-145) Potassium Level 4.1 mmol/L (3.5-5.1) Chloride Level 102 mmol/L (98-107) Carbon Dioxide Level 26 mmol/L (21-32) Anion Gap 10 (6-14) Blood Urea Nitrogen 39 mg/dL (7-20) Creatinine 4.7 mg/dL (0.6-1.0) Estimated GFR (Cockcroft-Gault) 11.7 Glucose Level 102 mg/dL (70-99) Calcium Level 8.9 mg/dL (8.5-10.1) Results All relevant outside records, renal labs, imaging studies, telemetry/EKG's were reviewed. THADDEUS GOMEZ MD Dec 15, 2017 10:07
[2017-12-15] MEDS ORDERED: ACETAMINOPHEN 325 MG TABLET. PO PRN (14:30)
[2017-12-15] MEDS ORDERED: MORPHINE SULFATE 2 MG/ML VIAL. IV PRN (14:30)
[2017-12-15] MEDS ORDERED: DOCUSATE SODIUM 100 MG CAPSULE. PO PRN (14:30)
[2017-12-15] MEDS ORDERED: traMADol 50 MG TABLET PO PRN (14:30)
[2017-12-15] MEDS ORDERED: ONDANSETRON PF 4 MG/2 ML VIAL. IV PRN (14:30)
--- NOTE | 2017-12-15 14:34 | PDOC ---
PROGRESS NOTES Chief Complaint Chief Complaint Acute systolic heart failure TOSHIA, ATN likely CKD 3? Hypertensive emergency Ischemic cardiomyopathy\ plan: fu with card, renal moderate risk of MPI on HD now, likely need cont HD as outpt, get SW for possible HD set up pt want dialysis at home, told her will talk to renal. dvt ppx History of Present Illness History of Present Illness Pt seen and examined Pt alert & oriented;affect appropriate., pt has no sob, bl edema gone VSS Dw RN HD SAT, friday, pt wants home with dialysis, educated pt currently she is on HD, not PD, will double check with renal Vitals Vitals Vital Signs Date Time Temp Pulse Resp B/P (MAP) Pulse Ox O2 Delivery O2 Flow Rate FiO2 12/15/17 08:42 61 129/65 12/15/17 08:00 Room Air 12/15/17 07:00 97.5 18 99 97.5 12/14/17 11:45 2.0 Physical Exam General: Alert, Oriented X3, Cooperative, No acute distress Heart: Normal S1, Normal S2, No murmurs Lungs: Clear Abdomen: Normal bowel sounds, Soft Extremities: No clubbing, No cyanosis, Other ( ) Skin: No rashes, No breakdown Labs LABS Laboratory Tests Test 12/15/17 05:00 White Blood Count 4.0 x10^3/uL (4.0-11.0) Red Blood Count 2.92 x10^6/uL (3.50-5.40) Hemoglobin 9.2 g/dL (12.0-15.5) Hematocrit 27.9 % (36.0-47.0) Mean Corpuscular Volume 96 fL (79-100) Mean Corpuscular Hemoglobin 31 pg (25-35) Mean Corpuscular Hemoglobin Concent 33 g/dL (31-37) Red Cell Distribution Width 16.7 % (11.5-14.5) Platelet Count 198 x10^3/uL (140-400) Neutrophils (%) (Auto) 57 % (31-73) Lymphocytes (%) (Auto) 23 % (24-48) Monocytes (%) (Auto) 11 % (0-9) Eosinophils (%) (Auto) 8 % (0-3) Basophils (%) (Auto) 1 % (0-3) Neutrophils # (Auto) 2.3 x10^3uL (1.8-7.7) Lymphocytes # (Auto) 0.9 x10^3/uL (1.0-4.8) Monocytes # (Auto) 0.4 x10^3/uL (0.0-1.1) Eosinophils # (Auto) 0.3 x10^3/uL (0.0-0.7) Basophils # (Auto) 0.0 x10^3/uL (0.0-0.2) Sodium Level 138 mmol/L (136-145) Potassium Level 4.1 mmol/L (3.5-5.1) Chloride Level 102 mmol/L (98-107) Carbon Dioxide Level 26 mmol/L (21-32) Anion Gap 10 (6-14) Blood Urea Nitrogen 39 mg/dL (7-20) Creatinine 4.7 mg/dL (0.6-1.0) Estimated GFR (Cockcroft-Gault) 11.7 Glucose Level 102 mg/dL (70-99) Calcium Level 8.9 mg/dL (8.5-10.1) Assessment and Plan Assessmemt and Plan Problems Medical Problems: (1) TOSHIA (acute kidney injury) Status: Acute (2) CHF (congestive heart failure) Status: Acute (3) Hypertensive emergency Status: Acute (4) NSTEMI (non-ST elevated myocardial infarction) Status: Acute Comment Review of Relevant I have reviewed the following items batsheva (where applicable) has been applied. Labs Laboratory Tests Test 12/14/17 05:45 12/15/17 05:00 White Blood Count 3.9 x10^3/uL (4.0-11.0) 4.0 x10^3/uL (4.0-11.0) Red Blood Count 2.98 x10^6/uL (3.50-5.40) 2.92 x10^6/uL (3.50-5.40) Hemoglobin 9.3 g/dL (12.0-15.5) 9.2 g/dL (12.0-15.5) Hematocrit 28.4 % (36.0-47.0) 27.9 % (36.0-47.0) Mean Corpuscular Volume 95 fL (79-100) 96 fL (79-100) Mean Corpuscular Hemoglobin 31 pg (25-35) 31 pg (25-35) Mean Corpuscular Hemoglobin Concent 33 g/dL (31-37) 33 g/dL (31-37) Red Cell Distribution Width 16.8 % (11.5-14.5) 16.7 % (11.5-14.5) Platelet Count 205 x10^3/uL (140-400) 198 x10^3/uL (140-400) Neutrophils (%) (Auto) 49 % (31-73) 57 % (31-73) Lymphocytes (%) (Auto) 28 % (24-48) 23 % (24-48) Monocytes (%) (Auto) 12 % (0-9) 11 % (0-9) Eosinophils (%) (Auto) 10 % (0-3) 8 % (0-3) Basophils (%) (Auto) 1 % (0-3) 1 % (0-3) Neutrophils # (Auto) 1.9 x10^3uL (1.8-7.7) 2.3 x10^3uL (1.8-7.7) Lymphocytes # (Auto) 1.1 x10^3/uL (1.0-4.8) 0.9 x10^3/uL (1.0-4.8) Monocytes # (Auto) 0.5 x10^3/uL (0.0-1.1) 0.4 x10^3/uL (0.0-1.1) Eosinophils # (Auto) 0.4 x10^3/uL (0.0-0.7) 0.3 x10^3/uL (0.0-0.7) Basophils # (Auto) 0.0 x10^3/uL (0.0-0.2) 0.0 x10^3/uL (0.0-0.2) Sodium Level 139 mmol/L (136-145) 138 mmol/L (136-145) Potassium Level 4.0 mmol/L (3.5-5.1) 4.1 mmol/L (3.5-5.1) Chloride Level 103 mmol/L (98-107) 102 mmol/L (98-107) Carbon Dioxide Level 28 mmol/L (21-32) 26 mmol/L (21-32) Anion Gap 8 (6-14) 10 (6-14) Blood Urea Nitrogen 32 mg/dL (7-20) 39 mg/dL (7-20) Creatinine 4.4 mg/dL (0.6-1.0) 4.7 mg/dL (0.6-1.0) Estimated GFR (Cockcroft-Gault) 12.6 11.7 BUN/Creatinine Ratio 7 (6-20) Glucose Level 100 mg/dL (70-99) 102 mg/dL (70-99) Calcium Level 9.0 mg/dL (8.5-10.1) 8.9 mg/dL (8.5-10.1) Total Bilirubin 0.4 mg/dL (0.2-1.0) Aspartate Amino Transf (AST/SGOT) 16 U/L (15-37) Alanine Aminotransferase (ALT/SGPT) 29 U/L (14-59) Alkaline Phosphatase 65 U/L (46-116) Total Protein 6.5 g/dL (6.4-8.2) Albumin 2.1 g/dL (3.4-5.0) Albumin/Globulin Ratio 0.5 (1.0-1.7) Laboratory Tests Test 12/15/17 05:00 White Blood Count 4.0 x10^3/uL (4.0-11.0) Red Blood Count 2.92 x10^6/uL (3.50-5.40) Hemoglobin 9.2 g/dL (12.0-15.5) Hematocrit 27.9 % (36.0-47.0) Mean Corpuscular Volume 96 fL (79-100) Mean Corpuscular Hemoglobin 31 pg (25-35) Mean Corpuscular Hemoglobin Concent 33 g/dL (31-37) Red Cell Distribution Width 16.7 % (11.5-14.5) Platelet Count 198 x10^3/uL (140-400) Neutrophils (%) (Auto) 57 % (31-73) Lymphocytes (%) (Auto) 23 % (24-48) Monocytes (%) (Auto) 11 % (0-9) Eosinophils (%) (Auto) 8 % (0-3) Basophils (%) (Auto) 1 % (0-3) Neutrophils # (Auto) 2.3 x10^3uL (1.8-7.7) Lymphocytes # (Auto) 0.9 x10^3/uL (1.0-4.8) Monocytes # (Auto) 0.4 x10^3/uL (0.0-1.1) Eosinophils # (Auto) 0.3 x10^3/uL (0.0-0.7) Basophils # (Auto) 0.0 x10^3/uL (0.0-0.2) Sodium Level 138 mmol/L (136-145) Potassium Level 4.1 mmol/L (3.5-5.1) Chloride Level 102 mmol/L (98-107) Carbon Dioxide Level 26 mmol/L (21-32) Anion Gap 10 (6-14) Blood Urea Nitrogen 39 mg/dL (7-20) Creatinine 4.7 mg/dL (0.6-1.0) Estimated GFR (Cockcroft-Gault) 11.7 Glucose Level 102 mg/dL (70-99) Calcium Level 8.9 mg/dL (8.5-10.1) Medications Current Medications Aspirin (Children'S Aspirin) 324 mg 1X ONCE PO Last administered on 12/09/17at 16:08; Start 12/09/17 at 16:00; Stop 12/09/17 at 16:06; Status DC Nitroglycerin (Nitrostat) 0.4 mg PRN Q5MIN PRN SL CP RATING > 1/10 Last administered on 12/09/17at 16:16; Start 12/09/17 at 16:00; Stop 12/10/17 at 15:59 ; Status DC Nitroglycerin (Nitrostat) 0.4 mg STK-MED ONCE SL ; Start 12/09/17 at 16:00; Stop 12/09/17 at 16:01; Status DC Nitroglycerin/ Dextrose 250 ml @ 0 mls/hr 1X ONCE IV Last administered on 12/09at 16:29; Start 12/09/17 at 16:30; Stop 12/09/17 at 18:52; Status DC Furosemide (Lasix) 40 mg 1X ONCE IVP Last administered on 12/09/17at 16:45; Start 12/09/17 at 16:45; Stop 12/09/17 at 16:46; Status DC Ondansetron HCl (Zofran) 4 mg PRN Q8HRS PRN IV NAUSEA/VOMITING; Start 12/09/17 at 17:45; Stop 12/10/17 at 17:44; Status DC Fentanyl Citrate (Fentanyl 2ml Vial) 50 mcg PRN Q1HR PRN IV PAIN; Start at 17:45; Stop 12/10/17 at 17:44; Status DC Acetaminophen (Tylenol) 650 mg PRN Q4HRS PRN PO FEVER; Start 12/09/17 at 17:45 ; Stop 12/10/17 at 17:44; Status DC Nicardipine HCl 50 mg/Sodium Chloride 270 ml @ 27 mls/hr CONT PRN IV SEE I/O RECORD Last administered on 12/09/17at 23:32; Start 12/09/17 at 19:00; Stop 12/12 at 11:19; Status DC Furosemide 100 mg/ Sodium Chloride 100 ml @ 5 mls/hr CONT PRN IV SEE I/O RECORD Last administered on 12/11/17at 00:57; Start 12/09/17 at 19:15 Labetalol HCl (Trandate) 200 mg BID PO Last administered on 12/10/17at 08:40; Start 12/09/17 at 21:00; Stop 12/10/17 at 12:52; Status DC Clonazepam (KlonoPIN) 1 mg PRN QHS PRN PO ANXIETY / AGITATION Last administered on 12/11/17at 20:49; Start 12/09/17 at 21:15 Clonidine HCl (Catapres) 0.1 mg Q8HRS PO Last administered on 12/12/17at 05:56; Start 12/10/17 at 09:30; Stop 12/12/17 at 11:19; Status DC Lidocaine/Sodium Bicarbonate (Buffered Lidocaine 1%) 3 ml 1X ONCE INJ Last administered on 12/10/17at 09:50; Start 12/10/17 at 09:30; Stop 12/10/17 at 09:33 ; Status DC Heparin Sodium (Porcine) (Heparin Sodium) 2,600 unit 1X ONCE INT CAT Last administered on 12/10/17at 09:50; Start 12/10/17 at 09:30; Stop 12/10/17 at 09:33 ; Status DC Lidocaine/Sodium Bicarbonate (Buffered Lidocaine 1%) 3 ml STK-MED ONCE .ROUTE ; Start 12/10/17 at 09:30; Stop 12/10/17 at 09:31; Status DC Heparin Sodium (Porcine) (Heparin Sodium) 10,000 unit STK-MED ONCE .ROUTE ; Start 12/10/17 at 09:30; Stop 12/10/17 at 09:32; Status DC Lidocaine/Sodium Bicarbonate (Buffered Lidocaine 1%) 6 ml 1X ONCE INJ ; Start 12/10/17 at 10:15; Stop 12/10/17 at 10:16; Status DC Heparin Sodium (Porcine) (Heparin Sodium) 2,800 unit 1X ONCE INT CAT ; Start at 10:15; Stop 12/10/17 at 10:16; Status DC Labetalol HCl (Trandate) 400 mg BID PO Last administered on 12/15/17at 08:42; Start 12/10/17 at 21:00 Labetalol HCl (Trandate) 200 mg 1X ONCE PO Last administered on 12/10/17at 13: 09; Start 12/10/17 at 13:00; Stop 12/10/17 at 13:01; Status DC Heparin Sodium (Porcine) (Heparin Sq) 5,000 unit Q12HR SQ Last administered on 12/15/17at 08:46; Start 12/10/17 at 21:00 Regadenoson (Lexiscan) 0.4 mg 1X ONCE IV Last administered on 12/11/17at 12:05 ; Start 12/11/17 at 11:30; Stop 12/11/17 at 11:31; Status DC Clonidine HCl (Catapres) 0.2 mg Q8HRS PO Last administered on 12/15/17at 05:15; Start 12/12/17 at 14:00 Amlodipine Besylate (Norvasc) 10 mg DAILYWSUP PO Last administered on at 17:38; Start 12/12/17 at 17:00 Sodium Chloride 1,000 ml @ 1,000 mls/hr Q1H PRN IV hypotension; Start 12/13/17 at 13:30; Stop 12/13/17 at 19:29; Status DC Sodium Chloride 1,000 ml @ 400 mls/hr Q2H30M PRN IV PATENCY; Start 12/13/17 at 13:30; Stop 12/14/17 at 01:29; Status DC Info (PHARMACY MONITORING -- do not chart) 1 each PRN DAILY PRN MC SEE COMMENTS ; Start 12/13/17 at 16:15; Status UNV Info (PHARMACY MONITORING -- do not chart) 1 each PRN DAILY PRN MC SEE COMMENTS ; Start 12/13/17 at 16:15 Sodium Chloride 1,000 ml @ 1,000 mls/hr Q1H PRN IV hypotension; Start 12/15/17 at 09:07; Stop 12/15/17 at 15:06 Albumin Human 200 ml @ 200 mls/hr 1X PRN PRN IV Hypotension; Start 12/15/17 at 09:15; Stop 12/15/17 at 15:14 Sodium Chloride 1,000 ml @ 400 mls/hr Q2H30M PRN IV PATENCY; Start 12/15/17 at 09:07; Stop 12/15/17 at 21:06 Info (PHARMACY MONITORING -- do not chart) 1 each PRN DAILY PRN MC SEE COMMENTS ; Start 12/15/17 at 09:15; Status UNV Info (PHARMACY MONITORING -- do not chart) 1 each PRN DAILY PRN MC SEE COMMENTS ; Start 12/15/17 at 09:15; Status UNV Vitals/I & O Vital Sign - Last 24 Hours 12/14/17 12/14/17 12/14/17 12/14/17 17:38 19:41 20:04 21:04 Temp 97.8 97.8 Pulse 60 63 63 Resp 18 B/P (MAP) 173/83 166/76 (106) 166/76 Pulse Ox 98 O2 Delivery Room Air Room Air 12/14/17 12/14/17 12/15/17 12/15/17 21:04 23:11 03:50 05:15 Temp 98.0 97.8 98.0 97.8 Pulse 63 64 63 63 Resp 18 18 B/P (MAP) 166/76 149/72 (97) 160/74 (102) 160/74 Pulse Ox 98 98 O2 Delivery Room Air Room Air 12/15/17 12/15/17 12/15/17 07:00 08:00 08:42 Temp 97.5 97.5 Pulse 59 61 Resp 18 B/P (MAP) 129/65 (86) 129/65 Pulse Ox 99 O2 Delivery Room Air Room Air Intake and Output 12/14/17 12/14/17 12/15/17 15:00 23:00 07:00 Intake Total 700 ml Balance 700 ml TOBIN MAGANA MD Dec 15, 2017 14:34
[2017-12-15 14:35] VITALS: BP 174/80
[2017-12-15 18:33] VITALS: BP 158/74
[2017-12-15] MEDS: amLODIPine BESYLATE 10 MG TABLET PO SCH (18:33)
[2017-12-15 22:12] VITALS: BP 174/83
[2017-12-16] VITALS (7 sets, daily range): BP systolic 149–158; BP diastolic 73–79
[2017-12-16 05:03] LABS: BASO # 0.1 x10^3/uL (0.0-0.2); BASO % 2 % (0-3); EOS # 0.4 x10^3/uL (0.0-0.7); EOS % 9 % (0-3); HEMATOCRIT 28.9 % (36.0-47.0); HEMOGLOBIN 9.5 g/dL (12.0-15.5); LYMPH # 0.9 x10^3/uL (1.0-4.8); LYMPH % 23 % (24-48); MEAN CORPUSCULAR HEMOGLOBIN 32 pg (25-35); MEAN CORPUSCULAR HGB CONC 33 g/dL (31-37); MEAN CORPUSCULAR VOLUME 96 fL (79-100); MONO # 0.5 x10^3/uL (0.0-1.1); MONO % 12 % (0-9); NEUT # 2.3 x10^3uL (1.8-7.7); NEUT % 55 % (31-73); PLATELET COUNT 178 x10^3/uL (140-400); RED BLOOD COUNT 3.02 x10^6/uL (3.50-5.40); RED CELL DISTRIBUTION WIDTH 16.8 % (11.5-14.5); WHITE BLOOD COUNT 4.2 x10^3/uL (4.0-11.0)
[2017-12-16 05:11] LABS: CALCIUM 8.7 mg/dL (8.5-10.1); CREATININE 3.8 mg/dL (0.6-1.0)
[2017-12-16] MEDS: cloNIDine HCL 0.2 MG TABLET PO SCH ×3 (05:59→21:10)
--- NOTE | 2017-12-16 08:58 | PDOC2 ---
CONSULT Date of Consult Date of Consult DATE: 12/16/17 TIME: 08:47 Reason for consultation: Renal failure Consult: Hematology oncology, Dr. Floresita Mark History of present illness: Patient is a 52-year-old female with new onset renal failure, she was admitted recently due to shortness of breath, it had been severe, ongoing for 2 days, worse with deep breathing, and better after diuresis given for her CHF exacerbation, unfortunately she was also noted to be in renal failure and started dialysis on Friday and had dialysis yesterday as well, she had hypertensive emergency which she came in, has significant water retention, sats worse low as 80%, and troponin was positive within STEMI and cardiology is following as well as nephrology and we were consulted due to elevated A lambda ratio of 2.02 with A chance of 141, she also has anemia to a hemoglobin of 9.5. 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, twice, no tobacco or alcohol, lives alone in [facility], 3 children and 6 grandchildren Family history: Sister with breast cancer in her mid 50s, no other known cancers , there is heart disease and kidney failure in her family Review of systems: Making a lot of urine despite the renal failure, weight gain with water retention and edema, shortness of breath is gone, no chest pain, otherwise 10 point review of systems is negative Physical exam: Vitals reviewed Gen.: Well-nourished, obese, in no acute distress HEENT: mucous membranes moist, head normocephalic atraumatic Neck: Supple, R IJ cath for HD Lymph nodes: No palpable lymphadenopathy neck or axilla Lungs: Breathing comfortably on room air, no evidence of respiratory distress Abdomen: Soft, nontender, nondistended Extremities: No cyanosis, BLE edema Skin: No obvious rashes or skin breakdown Neuro: Alert and oriented 3 Psych: pleasant mood and affect Lab reviewed: light chain ratio elevated 2.02, with kappa chains 141 and lambda chains 70, creatinine 3.8, hemoglobin 9.5 with platelets of 178, white count 4.2 , MCV 96 Rads reviewed: Chest x-ray with mild congestive changes, mild bibasilar airspace opacities, and right IJ hemodialysis catheter Case discussed with: Patient, records reviewed in [facility], including labs and radiology, please see note for summary details. Assessment and Plan: She is a 52-year-old female admitted with CHF exacerbation , hypertensive emergency and renal failure on dialysis recently started, with elevated light chains and anemia Anemia: We'll check iron panel, may benefit from SOURAV Elevated lite chains: SPEP has been ordered, we'll have a low threshold for bone marrow biopsy but will await SPEP as she was significantly concerned regarding possible myeloma ("i may jump out a window if i get another blow"), though her elevated Light chains may be related to inflammation, will check skeletal survey as needed in follow-up as well, will also order 24 hr UPEP NSTEMI: Cardiology is involved Renal failure: On dialysis, nephrology is involved HTN: Deferred to primary Thank you kindly for this consultation, and please don't hesitate to call with any questions. Past Medical History Cardiovascular: No pertinent hx Pulmonary: No pertinent hx CENTRAL NERVOUS SYSTEM: Other (none) GI: No pertinent hx Heme/Onc: Anemia NOS Hepatobiliary: No pertinent hx Psych: No pertinent hx Musculoskeletal: Other Rheumatologic: No pertinent hx Infectious disease: No pertinent hx ENT: No pertinent hx Renal/: No pertinent hx Endocrine: No pertinent hx Dermatology: No pertinent hx Past Surgical History Past Surgical History: No pertinent history Family History Family History: Heart Disease (father @ age 84), Osteo Arthiritis ( mother alive @ age 87), Other (sister with TIA) Social History No ALCOHOL: social Drugs: None Lives: with Family Current Problem List Problem List Problems Medical Problems: (1) TOSHIA (acute kidney injury) Status: Acute (2) CHF (congestive heart failure) Status: Acute (3) Hypertensive emergency Status: Acute (4) NSTEMI (non-ST elevated myocardial infarction) Status: Acute Current Medications Current Medications Current Medications Aspirin (Children'S Aspirin) 324 mg 1X ONCE PO Last administered on 12/09/17at 16:08; Start 12/09/17 at 16:00; Stop 12/09/17 at 16:06; Status DC Nitroglycerin (Nitrostat) 0.4 mg PRN Q5MIN PRN SL CP RATING > 1/10 Last administered on 12/09/17at 16:16; Start 12/09/17 at 16:00; Stop 12/10/17 at 15:59 ; Status DC Nitroglycerin (Nitrostat) 0.4 mg STK-MED ONCE SL ; Start 12/09/17 at 16:00; Stop 12/09/17 at 16:01; Status DC Nitroglycerin/ Dextrose 250 ml @ 0 mls/hr 1X ONCE IV Last administered on 12/09at 16:29; Start 12/09/17 at 16:30; Stop 12/09/17 at 18:52; Status DC Furosemide (Lasix) 40 mg 1X ONCE IVP Last administered on 12/09/17at 16:45; Start 12/09/17 at 16:45; Stop 12/09/17 at 16:46; Status DC Ondansetron HCl (Zofran) 4 mg PRN Q8HRS PRN IV NAUSEA/VOMITING; Start 12/09/17 at 17:45; Stop 12/10/17 at 17:44; Status DC Fentanyl Citrate (Fentanyl 2ml Vial) 50 mcg PRN Q1HR PRN IV PAIN; Start at 17:45; Stop 12/10/17 at 17:44; Status DC Acetaminophen (Tylenol) 650 mg PRN Q4HRS PRN PO FEVER; Start 12/09/17 at 17:45 ; Stop 12/10/17 at 17:44; Status DC Nicardipine HCl 50 mg/Sodium Chloride 270 ml @ 27 mls/hr CONT PRN IV SEE I/O RECORD Last administered on 12/09/17at 23:32; Start 12/09/17 at 19:00; Stop 12/12 at 11:19; Status DC Furosemide 100 mg/ Sodium Chloride 100 ml @ 5 mls/hr CONT PRN IV SEE I/O RECORD Last administered on 12/11/17at 00:57; Start 12/09/17 at 19:15 Labetalol HCl (Trandate) 200 mg BID PO Last administered on 12/10/17at 08:40; Start 12/09/17 at 21:00; Stop 12/10/17 at 12:52; Status DC Clonazepam (KlonoPIN) 1 mg PRN QHS PRN PO ANXIETY / AGITATION Last administered on 12/11/17at 20:49; Start 12/09/17 at 21:15 Clonidine HCl (Catapres) 0.1 mg Q8HRS PO Last administered on 12/12/17at 05:56; Start 12/10/17 at 09:30; Stop 12/12/17 at 11:19; Status DC Lidocaine/Sodium Bicarbonate (Buffered Lidocaine 1%) 3 ml 1X ONCE INJ Last administered on 12/10/17at 09:50; Start 12/10/17 at 09:30; Stop 12/10/17 at 09:33 ; Status DC Heparin Sodium (Porcine) (Heparin Sodium) 2,600 unit 1X ONCE INT CAT Last administered on 12/10/17at 09:50; Start 12/10/17 at 09:30; Stop 12/10/17 at 09:33 ; Status DC Lidocaine/Sodium Bicarbonate (Buffered Lidocaine 1%) 3 ml STK-MED ONCE .ROUTE ; Start 12/10/17 at 09:30; Stop 12/10/17 at 09:31; Status DC Heparin Sodium (Porcine) (Heparin Sodium) 10,000 unit STK-MED ONCE .ROUTE ; Start 12/10/17 at 09:30; Stop 12/10/17 at 09:32; Status DC Lidocaine/Sodium Bicarbonate (Buffered Lidocaine 1%) 6 ml 1X ONCE INJ ; Start 12/10/17 at 10:15; Stop 12/10/17 at 10:16; Status DC Heparin Sodium (Porcine) (Heparin Sodium) 2,800 unit 1X ONCE INT CAT ; Start at 10:15; Stop 12/10/17 at 10:16; Status DC Labetalol HCl (Trandate) 400 mg BID PO Last administered on 12/15/17at 22:16; Start 12/10/17 at 21:00 Labetalol HCl (Trandate) 200 mg 1X ONCE PO Last administered on 12/10/17at 13: 09; Start 12/10/17 at 13:00; Stop 12/10/17 at 13:01; Status DC Heparin Sodium (Porcine) (Heparin Sq) 5,000 unit Q12HR SQ Last administered on 12/15/17at 22:21; Start 12/10/17 at 21:00 Regadenoson (Lexiscan) 0.4 mg 1X ONCE IV Last administered on 12/11/17at 12:05 ; Start 12/11/17 at 11:30; Stop 12/11/17 at 11:31; Status DC Clonidine HCl (Catapres) 0.2 mg Q8HRS PO Last administered on 12/16/17at 05:59; Start 12/12/17 at 14:00 Amlodipine Besylate (Norvasc) 10 mg DAILYWSUP PO Last administered on at 18:33; Start 12/12/17 at 17:00 Sodium Chloride 1,000 ml @ 1,000 mls/hr Q1H PRN IV hypotension; Start 12/13/17 at 13:30; Stop 12/13/17 at 19:29; Status DC Sodium Chloride 1,000 ml @ 400 mls/hr Q2H30M PRN IV PATENCY; Start 12/13/17 at 13:30; Stop 12/14/17 at 01:29; Status DC Info (PHARMACY MONITORING -- do not chart) 1 each PRN DAILY PRN MC SEE COMMENTS ; Start 12/13/17 at 16:15; Status UNV Info (PHARMACY MONITORING -- do not chart) 1 each PRN DAILY PRN MC SEE COMMENTS ; Start 12/13/17 at 16:15 Sodium Chloride 1,000 ml @ 1,000 mls/hr Q1H PRN IV hypotension; Start 12/15/17 at 09:07; Stop 12/15/17 at 15:06; Status DC Albumin Human 200 ml @ 200 mls/hr 1X PRN PRN IV Hypotension; Start 12/15/17 at 09:15; Stop 12/15/17 at 15:14; Status DC Sodium Chloride 1,000 ml @ 400 mls/hr Q2H30M PRN IV PATENCY; Start 12/15/17 at 09:07; Stop 12/15/17 at 21:06; Status DC Info (PHARMACY MONITORING -- do not chart) 1 each PRN DAILY PRN MC SEE COMMENTS ; Start 12/15/17 at 09:15; Status UNV Info (PHARMACY MONITORING -- do not chart) 1 each PRN DAILY PRN MC SEE COMMENTS ; Start 12/15/17 at 09:15; Status UNV Acetaminophen (Tylenol) 650 mg PRN Q6HRS PRN PO FEVER; Start 12/15/17 at 14:30 Ondansetron HCl (Zofran) 4 mg PRN Q6HRS PRN IV NAUSEA/VOMITING; Start 12/15/17 at 14:30 Morphine Sulfate (Morphine Sulfate) 2 mg PRN Q2HR PRN IV MODERATE TO SEVERE PAIN; Start 12/15/17 at 14:30 Tramadol HCl (Ultram) 50 mg PRN Q6HRS PRN PO MILD TO MODERATE PAIN; Start 12/15 at 14:30 Docusate Sodium (Colace) 100 mg PRN DAILY PRN PO CONSTIPATION; Start 12/15/17 at 14:30 Allergies Allergies: Coded Allergies: No Known Drug Allergies (Unverified , 12/09/17) Vitals VITALS Vital Signs Date Time Temp Pulse Resp B/P (MAP) Pulse Ox O2 Delivery O2 Flow Rate FiO2 12/16/17 06:59 97.6 63 20 154/79 (104) 100 Nasal Cannula 2.0 97.6 Labs Labs Laboratory Tests Test 12/15/17 05:00 12/16/17 04:30 White Blood Count 4.0 x10^3/uL (4.0-11.0) 4.2 x10^3/uL (4.0-11.0) Red Blood Count 2.92 x10^6/uL (3.50-5.40) 3.02 x10^6/uL (3.50-5.40) Hemoglobin 9.2 g/dL (12.0-15.5) 9.5 g/dL (12.0-15.5) Hematocrit 27.9 % (36.0-47.0) 28.9 % (36.0-47.0) Mean Corpuscular Volume 96 fL (79-100) 96 fL (79-100) Mean Corpuscular Hemoglobin 31 pg (25-35) 32 pg (25-35) Mean Corpuscular Hemoglobin Concent 33 g/dL (31-37) 33 g/dL (31-37) Red Cell Distribution Width 16.7 % (11.5-14.5) 16.8 % (11.5-14.5) Platelet Count 198 x10^3/uL (140-400) 178 x10^3/uL (140-400) Neutrophils (%) (Auto) 57 % (31-73) 55 % (31-73) Lymphocytes (%) (Auto) 23 % (24-48) 23 % (24-48) Monocytes (%) (Auto) 11 % (0-9) 12 % (0-9) Eosinophils (%) (Auto) 8 % (0-3) 9 % (0-3) Basophils (%) (Auto) 1 % (0-3) 2 % (0-3) Neutrophils # (Auto) 2.3 x10^3uL (1.8-7.7) 2.3 x10^3uL (1.8-7.7) Lymphocytes # (Auto) 0.9 x10^3/uL (1.0-4.8) 0.9 x10^3/uL (1.0-4.8) Monocytes # (Auto) 0.4 x10^3/uL (0.0-1.1) 0.5 x10^3/uL (0.0-1.1) Eosinophils # (Auto) 0.3 x10^3/uL (0.0-0.7) 0.4 x10^3/uL (0.0-0.7) Basophils # (Auto) 0.0 x10^3/uL (0.0-0.2) 0.1 x10^3/uL (0.0-0.2) Sodium Level 138 mmol/L (136-145) 139 mmol/L (136-145) Potassium Level 4.1 mmol/L (3.5-5.1) 4.0 mmol/L (3.5-5.1) Chloride Level 102 mmol/L (98-107) 102 mmol/L (98-107) Carbon Dioxide Level 26 mmol/L (21-32) 26 mmol/L (21-32) Anion Gap 10 (6-14) 11 (6-14) Blood Urea Nitrogen 39 mg/dL (7-20) 31 mg/dL (7-20) Creatinine 4.7 mg/dL (0.6-1.0) 3.8 mg/dL (0.6-1.0) Estimated GFR (Cockcroft-Gault) 11.7 15.0 Glucose Level 102 mg/dL (70-99) 104 mg/dL (70-99) Calcium Level 8.9 mg/dL (8.5-10.1) 8.7 mg/dL (8.5-10.1) Laboratory Tests Test 12/16/17 04:30 White Blood Count 4.2 x10^3/uL (4.0-11.0) Red Blood Count 3.02 x10^6/uL (3.50-5.40) Hemoglobin 9.5 g/dL (12.0-15.5) Hematocrit 28.9 % (36.0-47.0) Mean Corpuscular Volume 96 fL (79-100) Mean Corpuscular Hemoglobin 32 pg (25-35) Mean Corpuscular Hemoglobin Concent 33 g/dL (31-37) Red Cell Distribution Width 16.8 % (11.5-14.5) Platelet Count 178 x10^3/uL (140-400) Neutrophils (%) (Auto) 55 % (31-73) Lymphocytes (%) (Auto) 23 % (24-48) Monocytes (%) (Auto) 12 % (0-9) Eosinophils (%) (Auto) 9 % (0-3) Basophils (%) (Auto) 2 % (0-3) Neutrophils # (Auto) 2.3 x10^3uL (1.8-7.7) Lymphocytes # (Auto) 0.9 x10^3/uL (1.0-4.8) Monocytes # (Auto) 0.5 x10^3/uL (0.0-1.1) Eosinophils # (Auto) 0.4 x10^3/uL (0.0-0.7) Basophils # (Auto) 0.1 x10^3/uL (0.0-0.2) Sodium Level 139 mmol/L (136-145) Potassium Level 4.0 mmol/L (3.5-5.1) Chloride Level 102 mmol/L (98-107) Carbon Dioxide Level 26 mmol/L (21-32) Anion Gap 11 (6-14) Blood Urea Nitrogen 31 mg/dL (7-20) Creatinine 3.8 mg/dL (0.6-1.0) Estimated GFR (Cockcroft-Gault) 15.0 Glucose Level 104 mg/dL (70-99) Calcium Level 8.7 mg/dL (8.5-10.1) FLORESITA MARK MD Dec 16, 2017 08:58
[2017-12-16] MEDS: LABETALOL HCL 200 MG TABLET PO SCH ×2 (09:14→21:10)
[2017-12-16] MEDS: HEPARIN PF for SUB-Q USE 5,000 UNIT/0.5 ML VIAL. SQ SCH ×2 (09:19→19:28)
--- NOTE | 2017-12-16 10:03 | PDOC ---
SUBJECTIVE ROS No new concerns Voiced OBJECTIVE Vital Signs Vital Signs Date Time Temp Pulse Resp B/P (MAP) Pulse Ox O2 Delivery O2 Flow Rate FiO2 12/16/17 09:14 63 154/79 12/16/17 08:00 Room Air 12/16/17 06:59 97.6 20 100 2.0 97.6 I & 0 Intake and Output 12/16/17 07:00 Intake Total 765 ml Output Total 550 ml Balance 215 ml Intake Oral 765 ml Output Urine Total 550 ml # Voids 1 PHYSICAL EXAM Physical Exam GEN: NAD HEENT- OM moist, NECK: No JVD CVS: S1S2, Murmur + RESP: Bilat crackles +, Non labored breathing GI: BS + ve, Non Tender, obese : No CVA tenderness, no Suprapubic Tenderness,No christopher Skin No rash Neuro- AxO, grossly Normal DIAGNOSIS/ASSESSMENT Assessment & Plan New Onset ESRD - Unknown baseline renal function No Known significant Past hx Renal US - echogenic Kidneys cw CKD , No significant Microscopic hematuria Oliguric on admission with good response to IV lasix drip Initiated on HD (12/13),2nd treatment 12/15 , No indication for HD today Will schedule for Tomorrow Will need TDC and OP chair time Proteinuria- Nephrotic ranges, No sign micr hematuria CESAR for Nephrotic Proteinuria -Hepatitis Negative K and L - High , ratio high, anemic- could be sec to Renal failure Hem/Onc following Rest serologies pending HTN Urgency -- BP at goal Renal Doppler No significant findings ? CKD- HTNsive Nephrosclerosis US consistent with CKD Shortness of Breath- CxR Pulm edema, BNP elevated TTE with preserved LVEF; mild concentric LVH and mild to moderate MR/TR with pulm HTN and PA of 52 mm Hg Stress test Cardiology following COMMENT/RELEVANT DATA Meds Current Medications Medications (Trade) Dose Ordered Sig/Keri Start Time Stop Time Status Last Admin Dose Admin Acetaminophen (Tylenol) 650 mg PRN Q6HRS PRN 12/15/17 14:30 Albumin Human 200 ml @ 200 mls/hr 1X PRN PRN 12/15/17 09:15 12/15/17 15:14 DC Amlodipine Besylate (Norvasc) 10 mg DAILYWSUP 12/12/17 17:00 12/15/17 18:33 10 MG Aspirin (Children'S Aspirin) 324 mg 1X ONCE 12/09/17 16:00 12/09/17 16:06 DC 12/09/17 16:08 324 MG Clonazepam (KlonoPIN) 1 mg PRN QHS PRN 12/09/17 21:15 12/11/17 20:49 1 MG Clonidine HCl (Catapres) 0.2 mg Q8HRS 12/12/17 14:00 12/16/17 05:59 0.2 MG Docusate Sodium (Colace) 100 mg PRN DAILY PRN 12/15/17 14:30 Fentanyl Citrate (Fentanyl 2ml Vial) 50 mcg PRN Q1HR PRN 12/09/17 17:45 12/10/17 17:44 DC Furosemide (Lasix) 40 mg 1X ONCE 12/09/17 16:45 12/09/17 16:46 DC 12/09/17 16:45 40 MG Furosemide 100 mg/ Sodium Chloride 100 ml @ 5 mls/hr CONT PRN 12/09/17 19:15 12/11/17 00:57 10 MLS/HR Heparin Sodium (Porcine) (Heparin Sodium) 2,800 unit 1X ONCE 12/10/17 10:15 12/10/17 10:16 DC Heparin Sodium (Porcine) (Heparin Sq) 5,000 unit Q12HR 12/10/17 21:00 12/16/17 09:19 5,000 UNIT Info (PHARMACY MONITORING -- do not chart) 1 each PRN DAILY PRN 12/15/17 09:15 UNV Labetalol HCl (Trandate) 200 mg 1X ONCE 12/10/17 13:00 12/10/17 13:01 DC 12/10/17 13:09 200 MG Lidocaine/Sodium Bicarbonate (Buffered Lidocaine 1%) 6 ml 1X ONCE 12/10/17 10:15 12/10/17 10:16 DC Morphine Sulfate (Morphine Sulfate) 2 mg PRN Q2HR PRN 12/15/17 14:30 Nicardipine HCl 50 mg/Sodium Chloride 270 ml @ 27 mls/hr CONT PRN 12/09/17 19:00 12/12/17 11:19 DC 12/09/17 23:32 27 MLS/HR Nitroglycerin (Nitrostat) 0.4 mg STK-MED ONCE 12/09/17 16:00 12/09/17 16:01 DC Nitroglycerin/ Dextrose 250 ml @ 0 mls/hr 1X ONCE 12/09/17 16:30 12/09/17 18:52 DC 12/09/17 16:29 1.5 MLS/HR Ondansetron HCl (Zofran) 4 mg PRN Q6HRS PRN 12/15/17 14:30 Regadenoson (Lexiscan) 0.4 mg 1X ONCE 12/11/17 11:30 12/11/17 11:31 DC 12/11/17 12:05 0.4 MG Sodium Chloride 1,000 ml @ 400 mls/hr Q2H30M PRN 12/15/17 09:07 12/15/17 21:06 DC Tramadol HCl (Ultram) 50 mg PRN Q6HRS PRN 12/15/17 14:30 Lab Laboratory Tests Test 12/16/17 04:30 White Blood Count 4.2 x10^3/uL (4.0-11.0) Red Blood Count 3.02 x10^6/uL (3.50-5.40) Hemoglobin 9.5 g/dL (12.0-15.5) Hematocrit 28.9 % (36.0-47.0) Mean Corpuscular Volume 96 fL (79-100) Mean Corpuscular Hemoglobin 32 pg (25-35) Mean Corpuscular Hemoglobin Concent 33 g/dL (31-37) Red Cell Distribution Width 16.8 % (11.5-14.5) Platelet Count 178 x10^3/uL (140-400) Neutrophils (%) (Auto) 55 % (31-73) Lymphocytes (%) (Auto) 23 % (24-48) Monocytes (%) (Auto) 12 % (0-9) Eosinophils (%) (Auto) 9 % (0-3) Basophils (%) (Auto) 2 % (0-3) Neutrophils # (Auto) 2.3 x10^3uL (1.8-7.7) Lymphocytes # (Auto) 0.9 x10^3/uL (1.0-4.8) Monocytes # (Auto) 0.5 x10^3/uL (0.0-1.1) Eosinophils # (Auto) 0.4 x10^3/uL (0.0-0.7) Basophils # (Auto) 0.1 x10^3/uL (0.0-0.2) Sodium Level 139 mmol/L (136-145) Potassium Level 4.0 mmol/L (3.5-5.1) Chloride Level 102 mmol/L (98-107) Carbon Dioxide Level 26 mmol/L (21-32) Anion Gap 11 (6-14) Blood Urea Nitrogen 31 mg/dL (7-20) Creatinine 3.8 mg/dL (0.6-1.0) Estimated GFR (Cockcroft-Gault) 15.0 Glucose Level 104 mg/dL (70-99) Calcium Level 8.7 mg/dL (8.5-10.1) Results All relevant outside records, renal labs, imaging studies, telemetry/EKG's were reviewed. THADDEUS GOMEZ MD Dec 16, 2017 10:03
--- NOTE | 2017-12-16 13:24 | PDOC ---
PROGRESS NOTES Chief Complaint Chief Complaint Acute systolic heart failure TOSHIA, ATN likely CKD 3? Hypertensive emergency Ischemic cardiomyopathy\ plan: fu with card, renal moderate risk of MPI on HD now, likely need cont HD as outpt, get SW for possible HD set up pt want dialysis at home, told her will talk to renal. dvt ppx on amlodipine and clonidine for HTN ,still high side, will cont ob History of Present Illness History of Present Illness Pt seen and examined Pt alert & oriented;affect appropriate., pt has no sob, bl edema gone VSS Dw RN HD SAT, friday, pt wants home with dialysis, educated pt currently she is on HD, not PD, will double check with renal Vitals Vitals Vital Signs Date Time Temp Pulse Resp B/P (MAP) Pulse Ox O2 Delivery O2 Flow Rate FiO2 12/16/17 11:45 97.7 59 19 157/74 (101) 100 Nasal Cannula 2.0 97.7 Physical Exam General: Alert, Oriented X3, Cooperative, No acute distress Heart: Normal S1, Normal S2, No murmurs Lungs: Clear Abdomen: Normal bowel sounds, Soft Extremities: No clubbing, No cyanosis, Other (bl leg 2+ edema) Skin: No rashes, No breakdown Labs LABS Laboratory Tests Test 12/16/17 04:30 12/16/17 10:00 White Blood Count 4.2 x10^3/uL (4.0-11.0) Red Blood Count 3.02 x10^6/uL (3.50-5.40) Hemoglobin 9.5 g/dL (12.0-15.5) Hematocrit 28.9 % (36.0-47.0) Mean Corpuscular Volume 96 fL (79-100) Mean Corpuscular Hemoglobin 32 pg (25-35) Mean Corpuscular Hemoglobin Concent 33 g/dL (31-37) Red Cell Distribution Width 16.8 % (11.5-14.5) Platelet Count 178 x10^3/uL (140-400) Neutrophils (%) (Auto) 55 % (31-73) Lymphocytes (%) (Auto) 23 % (24-48) Monocytes (%) (Auto) 12 % (0-9) Eosinophils (%) (Auto) 9 % (0-3) Basophils (%) (Auto) 2 % (0-3) Neutrophils # (Auto) 2.3 x10^3uL (1.8-7.7) Lymphocytes # (Auto) 0.9 x10^3/uL (1.0-4.8) Monocytes # (Auto) 0.5 x10^3/uL (0.0-1.1) Eosinophils # (Auto) 0.4 x10^3/uL (0.0-0.7) Basophils # (Auto) 0.1 x10^3/uL (0.0-0.2) Sodium Level 139 mmol/L (136-145) Potassium Level 4.0 mmol/L (3.5-5.1) Chloride Level 102 mmol/L (98-107) Carbon Dioxide Level 26 mmol/L (21-32) Anion Gap 11 (6-14) Blood Urea Nitrogen 31 mg/dL (7-20) Creatinine 3.8 mg/dL (0.6-1.0) Estimated GFR (Cockcroft-Gault) 15.0 Glucose Level 104 mg/dL (70-99) Calcium Level 8.7 mg/dL (8.5-10.1) Iron Level 38 ug/dL (50-170) Total Iron Binding Capacity 255 ug/dL (250-450) Iron Saturation 15 % (15-34) Ferritin 138 ng/mL (8-252) Assessment and Plan Assessmemt and Plan Problems Medical Problems: (1) TOSHIA (acute kidney injury) Status: Acute (2) CHF (congestive heart failure) Status: Acute (3) Hypertensive emergency Status: Acute (4) NSTEMI (non-ST elevated myocardial infarction) Status: Acute Comment Review of Relevant I have reviewed the following items batsheva (where applicable) has been applied. Labs Laboratory Tests Test 12/15/17 05:00 12/16/17 04:30 12/16/17 10:00 White Blood Count 4.0 x10^3/uL (4.0-11.0) 4.2 x10^3/uL (4.0-11.0) Red Blood Count 2.92 x10^6/uL (3.50-5.40) 3.02 x10^6/uL (3.50-5.40) Hemoglobin 9.2 g/dL (12.0-15.5) 9.5 g/dL (12.0-15.5) Hematocrit 27.9 % (36.0-47.0) 28.9 % (36.0-47.0) Mean Corpuscular Volume 96 fL (79-100) 96 fL (79-100) Mean Corpuscular Hemoglobin 31 pg (25-35) 32 pg (25-35) Mean Corpuscular Hemoglobin Concent 33 g/dL (31-37) 33 g/dL (31-37) Red Cell Distribution Width 16.7 % (11.5-14.5) 16.8 % (11.5-14.5) Platelet Count 198 x10^3/uL (140-400) 178 x10^3/uL (140-400) Neutrophils (%) (Auto) 57 % (31-73) 55 % (31-73) Lymphocytes (%) (Auto) 23 % (24-48) 23 % (24-48) Monocytes (%) (Auto) 11 % (0-9) 12 % (0-9) Eosinophils (%) (Auto) 8 % (0-3) 9 % (0-3) Basophils (%) (Auto) 1 % (0-3) 2 % (0-3) Neutrophils # (Auto) 2.3 x10^3uL (1.8-7.7) 2.3 x10^3uL (1.8-7.7) Lymphocytes # (Auto) 0.9 x10^3/uL (1.0-4.8) 0.9 x10^3/uL (1.0-4.8) Monocytes # (Auto) 0.4 x10^3/uL (0.0-1.1) 0.5 x10^3/uL (0.0-1.1) Eosinophils # (Auto) 0.3 x10^3/uL (0.0-0.7) 0.4 x10^3/uL (0.0-0.7) Basophils # (Auto) 0.0 x10^3/uL (0.0-0.2) 0.1 x10^3/uL (0.0-0.2) Sodium Level 138 mmol/L (136-145) 139 mmol/L (136-145) Potassium Level 4.1 mmol/L (3.5-5.1) 4.0 mmol/L (3.5-5.1) Chloride Level 102 mmol/L (98-107) 102 mmol/L (98-107) Carbon Dioxide Level 26 mmol/L (21-32) 26 mmol/L (21-32) Anion Gap 10 (6-14) 11 (6-14) Blood Urea Nitrogen 39 mg/dL (7-20) 31 mg/dL (7-20) Creatinine 4.7 mg/dL (0.6-1.0) 3.8 mg/dL (0.6-1.0) Estimated GFR (Cockcroft-Gault) 11.7 15.0 Glucose Level 102 mg/dL (70-99) 104 mg/dL (70-99) Calcium Level 8.9 mg/dL (8.5-10.1) 8.7 mg/dL (8.5-10.1) Iron Level 38 ug/dL (50-170) Total Iron Binding Capacity 255 ug/dL (250-450) Iron Saturation 15 % (15-34) Ferritin 138 ng/mL (8-252) Laboratory Tests Test 12/16/17 04:30 12/16/17 10:00 White Blood Count 4.2 x10^3/uL (4.0-11.0) Red Blood Count 3.02 x10^6/uL (3.50-5.40) Hemoglobin 9.5 g/dL (12.0-15.5) Hematocrit 28.9 % (36.0-47.0) Mean Corpuscular Volume 96 fL (79-100) Mean Corpuscular Hemoglobin 32 pg (25-35) Mean Corpuscular Hemoglobin Concent 33 g/dL (31-37) Red Cell Distribution Width 16.8 % (11.5-14.5) Platelet Count 178 x10^3/uL (140-400) Neutrophils (%) (Auto) 55 % (31-73) Lymphocytes (%) (Auto) 23 % (24-48) Monocytes (%) (Auto) 12 % (0-9) Eosinophils (%) (Auto) 9 % (0-3) Basophils (%) (Auto) 2 % (0-3) Neutrophils # (Auto) 2.3 x10^3uL (1.8-7.7) Lymphocytes # (Auto) 0.9 x10^3/uL (1.0-4.8) Monocytes # (Auto) 0.5 x10^3/uL (0.0-1.1) Eosinophils # (Auto) 0.4 x10^3/uL (0.0-0.7) Basophils # (Auto) 0.1 x10^3/uL (0.0-0.2) Sodium Level 139 mmol/L (136-145) Potassium Level 4.0 mmol/L (3.5-5.1) Chloride Level 102 mmol/L (98-107) Carbon Dioxide Level 26 mmol/L (21-32) Anion Gap 11 (6-14) Blood Urea Nitrogen 31 mg/dL (7-20) Creatinine 3.8 mg/dL (0.6-1.0) Estimated GFR (Cockcroft-Gault) 15.0 Glucose Level 104 mg/dL (70-99) Calcium Level 8.7 mg/dL (8.5-10.1) Iron Level 38 ug/dL (50-170) Total Iron Binding Capacity 255 ug/dL (250-450) Iron Saturation 15 % (15-34) Ferritin 138 ng/mL (8-252) Medications Current Medications Aspirin (Children'S Aspirin) 324 mg 1X ONCE PO Last administered on 12/09/17at 16:08; Start 12/09/17 at 16:00; Stop 12/09/17 at 16:06; Status DC Nitroglycerin (Nitrostat) 0.4 mg PRN Q5MIN PRN SL CP RATING > 1/10 Last administered on 12/09/17at 16:16; Start 12/09/17 at 16:00; Stop 12/10/17 at 15:59 ; Status DC Nitroglycerin (Nitrostat) 0.4 mg STK-MED ONCE SL ; Start 12/09/17 at 16:00; Stop 12/09/17 at 16:01; Status DC Nitroglycerin/ Dextrose 250 ml @ 0 mls/hr 1X ONCE IV Last administered on 12/09at 16:29; Start 12/09/17 at 16:30; Stop 12/09/17 at 18:52; Status DC Furosemide (Lasix) 40 mg 1X ONCE IVP Last administered on 12/09/17at 16:45; Start 12/09/17 at 16:45; Stop 12/09/17 at 16:46; Status DC Ondansetron HCl (Zofran) 4 mg PRN Q8HRS PRN IV NAUSEA/VOMITING; Start 12/09/17 at 17:45; Stop 12/10/17 at 17:44; Status DC Fentanyl Citrate (Fentanyl 2ml Vial) 50 mcg PRN Q1HR PRN IV PAIN; Start at 17:45; Stop 12/10/17 at 17:44; Status DC Acetaminophen (Tylenol) 650 mg PRN Q4HRS PRN PO FEVER; Start 12/09/17 at 17:45 ; Stop 12/10/17 at 17:44; Status DC Nicardipine HCl 50 mg/Sodium Chloride 270 ml @ 27 mls/hr CONT PRN IV SEE I/O RECORD Last administered on 12/09/17at 23:32; Start 12/09/17 at 19:00; Stop 12/12 at 11:19; Status DC Furosemide 100 mg/ Sodium Chloride 100 ml @ 5 mls/hr CONT PRN IV SEE I/O RECORD Last administered on 12/11/17at 00:57; Start 12/09/17 at 19:15 Labetalol HCl (Trandate) 200 mg BID PO Last administered on 12/10/17at 08:40; Start 12/09/17 at 21:00; Stop 12/10/17 at 12:52; Status DC Clonazepam (KlonoPIN) 1 mg PRN QHS PRN PO ANXIETY / AGITATION Last administered on 12/11/17at 20:49; Start 12/09/17 at 21:15 Clonidine HCl (Catapres) 0.1 mg Q8HRS PO Last administered on 12/12/17at 05:56; Start 12/10/17 at 09:30; Stop 12/12/17 at 11:19; Status DC Lidocaine/Sodium Bicarbonate (Buffered Lidocaine 1%) 3 ml 1X ONCE INJ Last administered on 12/10/17at 09:50; Start 12/10/17 at 09:30; Stop 12/10/17 at 09:33 ; Status DC Heparin Sodium (Porcine) (Heparin Sodium) 2,600 unit 1X ONCE INT CAT Last administered on 12/10/17at 09:50; Start 12/10/17 at 09:30; Stop 12/10/17 at 09:33 ; Status DC Lidocaine/Sodium Bicarbonate (Buffered Lidocaine 1%) 3 ml STK-MED ONCE .ROUTE ; Start 12/10/17 at 09:30; Stop 12/10/17 at 09:31; Status DC Heparin Sodium (Porcine) (Heparin Sodium) 10,000 unit STK-MED ONCE .ROUTE ; Start 12/10/17 at 09:30; Stop 12/10/17 at 09:32; Status DC Lidocaine/Sodium Bicarbonate (Buffered Lidocaine 1%) 6 ml 1X ONCE INJ ; Start 12/10/17 at 10:15; Stop 12/10/17 at 10:16; Status DC Heparin Sodium (Porcine) (Heparin Sodium) 2,800 unit 1X ONCE INT CAT ; Start at 10:15; Stop 12/10/17 at 10:16; Status DC Labetalol HCl (Trandate) 400 mg BID PO Last administered on 12/16/17at 09:14; Start 12/10/17 at 21:00 Labetalol HCl (Trandate) 200 mg 1X ONCE PO Last administered on 12/10/17at 13: 09; Start 12/10/17 at 13:00; Stop 12/10/17 at 13:01; Status DC Heparin Sodium (Porcine) (Heparin Sq) 5,000 unit Q12HR SQ Last administered on 12/16/17at 09:19; Start 12/10/17 at 21:00 Regadenoson (Lexiscan) 0.4 mg 1X ONCE IV Last administered on 12/11/17at 12:05 ; Start 12/11/17 at 11:30; Stop 12/11/17 at 11:31; Status DC Clonidine HCl (Catapres) 0.2 mg Q8HRS PO Last administered on 12/16/17at 05:59; Start 12/12/17 at 14:00 Amlodipine Besylate (Norvasc) 10 mg DAILYWSUP PO Last administered on at 18:33; Start 12/12/17 at 17:00 Sodium Chloride 1,000 ml @ 1,000 mls/hr Q1H PRN IV hypotension; Start 12/13/17 at 13:30; Stop 12/13/17 at 19:29; Status DC Sodium Chloride 1,000 ml @ 400 mls/hr Q2H30M PRN IV PATENCY; Start 12/13/17 at 13:30; Stop 12/14/17 at 01:29; Status DC Info (PHARMACY MONITORING -- do not chart) 1 each PRN DAILY PRN MC SEE COMMENTS ; Start 12/13/17 at 16:15; Status UNV Info (PHARMACY MONITORING -- do not chart) 1 each PRN DAILY PRN MC SEE COMMENTS ; Start 12/13/17 at 16:15 Sodium Chloride 1,000 ml @ 1,000 mls/hr Q1H PRN IV hypotension; Start 12/15/17 at 09:07; Stop 12/15/17 at 15:06; Status DC Albumin Human 200 ml @ 200 mls/hr 1X PRN PRN IV Hypotension; Start 12/15/17 at 09:15; Stop 12/15/17 at 15:14; Status DC Sodium Chloride 1,000 ml @ 400 mls/hr Q2H30M PRN IV PATENCY; Start 12/15/17 at 09:07; Stop 12/15/17 at 21:06; Status DC Info (PHARMACY MONITORING -- do not chart) 1 each PRN DAILY PRN MC SEE COMMENTS ; Start 12/15/17 at 09:15; Status UNV Info (PHARMACY MONITORING -- do not chart) 1 each PRN DAILY PRN MC SEE COMMENTS ; Start 12/15/17 at 09:15; Status UNV Acetaminophen (Tylenol) 650 mg PRN Q6HRS PRN PO FEVER; Start 12/15/17 at 14:30 Ondansetron HCl (Zofran) 4 mg PRN Q6HRS PRN IV NAUSEA/VOMITING; Start 12/15/17 at 14:30 Morphine Sulfate (Morphine Sulfate) 2 mg PRN Q2HR PRN IV MODERATE TO SEVERE PAIN; Start 12/15/17 at 14:30 Tramadol HCl (Ultram) 50 mg PRN Q6HRS PRN PO MILD TO MODERATE PAIN; Start 12/15 at 14:30 Docusate Sodium (Colace) 100 mg PRN DAILY PRN PO CONSTIPATION; Start 12/15/17 at 14:30 Vitals/I & O Vital Sign - Last 24 Hours 12/15/17 12/15/17 12/15/17 12/15/17 14:35 14:55 18:33 18:33 Temp 97.5 97.5 97.5 97.5 Pulse 61 68 65 63 Resp 19 19 B/P (MAP) 174/80 (111) 174/80 158/74 158/74 (102) Pulse Ox 99 98 O2 Delivery Room Air Room Air 12/15/17 12/15/17 12/15/17 12/15/17 20:00 22:12 22:15 22:16 Temp 97.8 97.8 Pulse 66 66 66 Resp 20 B/P (MAP) 174/83 (113) 174/83 174/83 Pulse Ox 98 O2 Delivery Room Air Room Air 12/16/17 12/16/17 12/16/17 12/16/17 03:55 05:59 06:59 08:00 Temp 97.5 97.6 97.5 97.6 Pulse 62 62 63 Resp 20 20 B/P (MAP) 158/76 (103) 158/76 154/79 (104) Pulse Ox 100 100 O2 Delivery Nasal Cannula Nasal Cannula Room Air O2 Flow Rate 2.0 2.0 12/16/17 12/16/17 12/16/17 09:14 09:58 11:45 Temp 97.7 97.7 97.7 97.7 Pulse 63 59 59 Resp 19 19 B/P (MAP) 154/79 157/74 (101) 157/74 (101) Pulse Ox 100 100 O2 Delivery Nasal Cannula Nasal Cannula O2 Flow Rate 2.0 2.0 Intake and Output 12/15/17 12/15/17 12/16/17 15:00 23:00 07:00 Intake Total 315 ml 450 ml Output Total 550 ml Balance 315 ml -100 ml TOBIN MAGANA MD Dec 16, 2017 13:24
[2017-12-16 15:28] LABS: IMMUNOGLOBULIN A 168 mg/dL (87-352); IMMUNOGLOBULIN G 1199 mg/dL (700-1600); IMMUNOGLOBULIN M 23 mg/dL (26-217)
[2017-12-16] MEDS: amLODIPine BESYLATE 10 MG TABLET PO SCH (17:20)
[2017-12-17] VITALS (7 sets, daily range): BP systolic 145–164; BP diastolic 72–87
[2017-12-17] MEDS: cloNIDine HCL 0.2 MG TABLET PO SCH ×3 (06:14→22:01)
[2017-12-17 06:34] LABS: BASO % 1 % (0-3); EOS # 0.3 x10^3/uL (0.0-0.7); EOS % 8 % (0-3); HEMATOCRIT 29.2 % (36.0-47.0); HEMOGLOBIN 9.8 g/dL (12.0-15.5); LYMPH # 0.8 x10^3/uL (1.0-4.8); LYMPH % 24 % (24-48); MEAN CORPUSCULAR HEMOGLOBIN 32 pg (25-35); MEAN CORPUSCULAR HGB CONC 34 g/dL (31-37); MEAN CORPUSCULAR VOLUME 96 fL (79-100); MONO # 0.4 x10^3/uL (0.0-1.1); MONO % 13 % (0-9); NEUT # 1.9 x10^3uL (1.8-7.7); NEUT % 54 % (31-73); PLATELET COUNT 197 x10^3/uL (140-400); RED BLOOD COUNT 3.06 x10^6/uL (3.50-5.40); RED CELL DISTRIBUTION WIDTH 16.7 % (11.5-14.5); WHITE BLOOD COUNT 3.5 x10^3/uL (4.0-11.0)
[2017-12-17] MEDS ORDERED: IV NORMAL SALINE 1000ML BAG 1,000 ML IV PRN ×2 (07:16)
[2017-12-17] MEDS ORDERED: DIALYSIS PATIENT. MC PRN ×2 (07:30)
[2017-12-17] MEDS: HEPARIN PF for SUB-Q USE 5,000 UNIT/0.5 ML VIAL. SQ SCH ×2 (07:41→22:02)
--- NOTE | 2017-12-17 08:39 | PDOC ---
SUBJECTIVE Subjective S: Doing Well, in better spirits today, she would still like to await the SPEP and the 24-hour UPEP before considering bone marrow biopsy, however quantitative immunoglobulins not elevated which is certainly reassuring O: Physical exam: Gen.: Well-nourished and well-developed, resting in bed Lungs: Breathing comfortably with no evidence of respiratory distress Psychiatric: Pleasant mood and affect Labs: immunoglobulins not elevated, protein creatinine ratio 4894, hemoglobin 9.8, ferritin 138, iron sat 15% Assessment and Plan: She is a 52-year-old female admitted with CHF exacerbation , hypertensive emergency and renal failure on dialysis recently started, with elevated light chains and anemia Anemia: may benefit from SOURAV defer to nephrology as she is on dialysis, ferritin adequate though iron sat of 15% Elevated lite chains: await SPEP and 24 hr UPEP, with low threshold for bone marrow biopsy after those results return NSTEMI: Cardiology is involved Renal failure: On dialysis, nephrology is involved HTN: Deferred to primary Thank you kindly, and please don't hesitate to call with any questions. OBJECTIVE Vital Signs Vital Signs Date Time Temp Pulse Resp B/P (MAP) Pulse Ox O2 Delivery O2 Flow Rate FiO2 12/17/17 07:43 97.6 56 16 164/77 (106) 100 Nasal Cannula 2.0 97.6 12/17/17 06:14 57 163/75 12/17/17 03:36 98.2 58 16 152/78 (102) 100 Nasal Cannula 2.0 98.2 12/16/17 23:08 97.7 57 16 158/73 (101) 100 Nasal Cannula 2.0 97.7 12/16/17 21:10 60 174/83 12/16/17 21:10 60 174/83 12/16/17 20:05 Room Air 12/16/17 19:57 97.7 62 16 153/79 (103) 98 Room Air 97.7 12/16/17 17:20 60 157/74 12/16/17 15:08 60 157/74 12/16/17 15:00 97.6 63 19 149/73 (98) 97 Room Air 97.6 12/16/17 11:45 97.7 59 19 157/74 (101) 100 Nasal Cannula 2.0 97.7 12/16/17 09:58 97.7 59 19 157/74 (101) 100 Nasal Cannula 2.0 97.7 12/16/17 09:14 63 154/79 I & O Intake and Output 12/17/17 07:00 Intake Total 1600 ml Output Total 550 ml Balance 1050 ml Intake Oral 1600 ml Output Urine Total 550 ml COMMENT Lab Laboratory Tests Test 12/16/17 10:00 12/17/17 06:00 Iron Level 38 ug/dL (50-170) Total Iron Binding Capacity 255 ug/dL (250-450) Iron Saturation 15 % (15-34) Ferritin 138 ng/mL (8-252) White Blood Count 3.5 x10^3/uL (4.0-11.0) Red Blood Count 3.06 x10^6/uL (3.50-5.40) Hemoglobin 9.8 g/dL (12.0-15.5) Hematocrit 29.2 % (36.0-47.0) Mean Corpuscular Volume 96 fL (79-100) Mean Corpuscular Hemoglobin 32 pg (25-35) Mean Corpuscular Hemoglobin Concent 34 g/dL (31-37) Red Cell Distribution Width 16.7 % (11.5-14.5) Platelet Count 197 x10^3/uL (140-400) Neutrophils (%) (Auto) 54 % (31-73) Lymphocytes (%) (Auto) 24 % (24-48) Monocytes (%) (Auto) 13 % (0-9) Eosinophils (%) (Auto) 8 % (0-3) Basophils (%) (Auto) 1 % (0-3) Neutrophils # (Auto) 1.9 x10^3uL (1.8-7.7) Lymphocytes # (Auto) 0.8 x10^3/uL (1.0-4.8) Monocytes # (Auto) 0.4 x10^3/uL (0.0-1.1) Eosinophils # (Auto) 0.3 x10^3/uL (0.0-0.7) Basophils # (Auto) 0.0 x10^3/uL (0.0-0.2) FLORESITA MCKEON MD Dec 17, 2017 08:39
[2017-12-17] MEDS: LABETALOL HCL 200 MG TABLET PO SCH ×2 (09:10→22:03)
[2017-12-17] MEDS ORDERED: LIDOCAINE 1%/EPI 1:100,000 20 ML VIAL. ONE (10:51)
[2017-12-17] MEDS ORDERED: HEPARIN for IV BOLUS 10,000 UNIT/10 ML VIAL. ONE (10:52)
[2017-12-17] MEDS ORDERED: MIDAZOLAM HCL/PF 2 MG/2 ML VIAL. ONE (11:03)
[2017-12-17] MEDS ORDERED: fentaNYL PF VIAL 100 MCG/2 ML VIAL ONE (11:03)
--- NOTE | 2017-12-17 11:05 | PDOC ---
SUBJECTIVE ROS No new concerns Voiced , states feeing good, Just had TDC placed Seen on HD , Good UOp OBJECTIVE Vital Signs Vital Signs Date Time Temp Pulse Resp B/P (MAP) Pulse Ox O2 Delivery O2 Flow Rate FiO2 12/17/17 10:50 97.7 58 16 163/77 (105) 95 Nasal Cannula 2.0 97.7 I & 0 Intake and Output 12/17/17 07:00 Intake Total 1600 ml Output Total 550 ml Balance 1050 ml Intake Oral 1600 ml Output Urine Total 550 ml PHYSICAL EXAM Physical Exam GEN: NAD HEENT- OM moist, NECK: No JVD CVS: S1S2, Murmur + RESP: Bilat crackles +, Non labored breathing GI: BS + ve, Non Tender, obese : No CVA tenderness, no Suprapubic Tenderness,No christopher Skin No rash Neuro- AxO, grossly Normal TDC + DIAGNOSIS/ASSESSMENT Assessment & Plan New Onset ESRD - Unknown baseline renal function No Known significant Past hx Renal US - echogenic Kidneys cw CKD , No significant Microscopic hematuria Oliguric on admission with good response to IV lasix drip Initiated on HD (12/13), 3 rd treatment today Seen on HD- tolerating well , Continue as Ordered Has TDC placed today, awaiting OP chair time Proteinuria- Nephrotic ranges, No sign micr hematuria CESAR for Nephrotic Proteinuria -Hepatitis Negative , BAM P, complements Normal K and L - High , ratio high, anemic- could be sec to Renal failure Ig normal , Hem/Onc following HTN Urgency -- BP at goal Renal Doppler No significant findings ? CKD- HTNsive Nephrosclerosis US consistent with CKD Shortness of Breath- CxR Pulm edema, BNP elevated TTE with preserved LVEF; mild concentric LVH and mild to moderate MR/TR with pulm HTN and PA of 52 mm Hg Discussed [Plan of care with DRCiarra COMMENT/RELEVANT DATA Meds Current Medications Medications (Trade) Dose Ordered Sig/Keri Start Time Stop Time Status Last Admin Dose Admin Acetaminophen (Tylenol) 650 mg PRN Q6HRS PRN 12/15/17 14:30 Albumin Human 200 ml @ 200 mls/hr 1X PRN PRN 12/15/17 09:15 12/15/17 15:14 DC Amlodipine Besylate (Norvasc) 10 mg DAILYWSUP 12/12/17 17:00 12/16/17 17:20 10 MG Aspirin (Children'S Aspirin) 324 mg 1X ONCE 12/09/17 16:00 12/09/17 16:06 DC 12/09/17 16:08 324 MG Clonazepam (KlonoPIN) 1 mg PRN QHS PRN 12/09/17 21:15 12/11/17 20:49 1 MG Clonidine HCl (Catapres) 0.2 mg Q8HRS 12/12/17 14:00 12/17/17 06:14 0.2 MG Docusate Sodium (Colace) 100 mg PRN DAILY PRN 12/15/17 14:30 Fentanyl Citrate (Fentanyl 2ml Vial) 50 mcg PRN Q1HR PRN 12/09/17 17:45 12/10/17 17:44 DC Furosemide (Lasix) 40 mg 1X ONCE 12/09/17 16:45 12/09/17 16:46 DC 12/09/17 16:45 40 MG Furosemide 100 mg/ Sodium Chloride 100 ml @ 5 mls/hr CONT PRN 12/09/17 19:15 12/11/17 00:57 10 MLS/HR Heparin Sodium (Porcine) (Heparin Sodium) 10,000 unit STK-MED ONCE 12/17/17 10:52 12/17/17 10:53 DC Heparin Sodium (Porcine) (Heparin Sq) 5,000 unit Q12HR 12/10/17 21:00 12/16/17 09:19 5,000 UNIT Info (PHARMACY MONITORING -- do not chart) 1 each PRN DAILY PRN 12/17/17 07:30 12/17/17 07:30 DC Labetalol HCl (Trandate) 200 mg 1X ONCE 12/10/17 13:00 12/10/17 13:01 DC 12/10/17 13:09 200 MG Lidocaine/ Epinephrine (LIDOCAINE 1%-EPI 1:100,000 Multi-Dose) 20 ml STK-MED ONCE 12/17/17 10:51 12/17/17 10:53 DC Lidocaine/Sodium Bicarbonate (Buffered Lidocaine 1%) 6 ml 1X ONCE 12/10/17 10:15 12/10/17 10:16 DC Morphine Sulfate (Morphine Sulfate) 2 mg PRN Q2HR PRN 12/15/17 14:30 Nicardipine HCl 50 mg/Sodium Chloride 270 ml @ 27 mls/hr CONT PRN 12/09/17 19:00 9/28/18 11:19 DC 12/09/17 23:32 27 MLS/HR Nitroglycerin (Nitrostat) 0.4 mg STK-MED ONCE 12/09/17 16:00 12/09/17 16:01 DC Nitroglycerin/ Dextrose 250 ml @ 0 mls/hr 1X ONCE 12/09/17 16:30 12/09/17 18:52 DC 12/09/17 16:29 1.5 MLS/HR Ondansetron HCl (Zofran) 4 mg PRN Q6HRS PRN 12/15/17 14:30 Regadenoson (Lexiscan) 0.4 mg 1X ONCE 12/11/17 11:30 12/11/17 11:31 DC 12/11/17 12:05 0.4 MG Sodium Chloride 1,000 ml @ 400 mls/hr Q2H30M PRN 12/17/17 07:16 12/17/17 19:15 Tramadol HCl (Ultram) 50 mg PRN Q6HRS PRN 12/15/17 14:30 Lab Laboratory Tests Test 12/17/17 06:00 White Blood Count 3.5 x10^3/uL (4.0-11.0) Red Blood Count 3.06 x10^6/uL (3.50-5.40) Hemoglobin 9.8 g/dL (12.0-15.5) Hematocrit 29.2 % (36.0-47.0) Mean Corpuscular Volume 96 fL (79-100) Mean Corpuscular Hemoglobin 32 pg (25-35) Mean Corpuscular Hemoglobin Concent 34 g/dL (31-37) Red Cell Distribution Width 16.7 % (11.5-14.5) Platelet Count 197 x10^3/uL (140-400) Neutrophils (%) (Auto) 54 % (31-73) Lymphocytes (%) (Auto) 24 % (24-48) Monocytes (%) (Auto) 13 % (0-9) Eosinophils (%) (Auto) 8 % (0-3) Basophils (%) (Auto) 1 % (0-3) Neutrophils # (Auto) 1.9 x10^3uL (1.8-7.7) Lymphocytes # (Auto) 0.8 x10^3/uL (1.0-4.8) Monocytes # (Auto) 0.4 x10^3/uL (0.0-1.1) Eosinophils # (Auto) 0.3 x10^3/uL (0.0-0.7) Basophils # (Auto) 0.0 x10^3/uL (0.0-0.2) Results All relevant outside records, renal labs, imaging studies, telemetry/EKG's were reviewed. THADDEUS GOMEZ MD Dec 17, 2017 11:05
[2017-12-17] MEDS ORDERED: MIDAZOLAM HCL/PF 2 MG/2 ML VIAL. IV ONE (11:45)
[2017-12-17] MEDS ORDERED: LIDOCAINE 1%/EPI 1:100,000 20 ML VIAL. IJ ONE (11:45)
[2017-12-17] MEDS ORDERED: fentaNYL PF VIAL 100 MCG/2 ML VIAL IV ONE (11:45)
--- NOTE | 2017-12-17 13:12 | PDOC ---
PROGRESS NOTES Chief Complaint Chief Complaint Acute systolic heart failure, ATN TOSHIA, ATN likely CKD 3? Hypertensive emergency Ischemic cardiomyopathy\ plan: fu with card, renal moderate risk of MPI on HD now, need cont HD as outpt, get SW for possible HD set up pt want dialysis at home, told her will talk to renal. dvt ppx on amlodipine and clonidine labetolol as per card for HTN ,still high side, will cont ob onco fu for possible myeloma, waiting for SPEP perma HD cath today History of Present Illness History of Present Illness Pt seen and examined Pt alert & oriented;affect appropriate., pt has no sob, bl edema gone VSS Dw RN HD SAT, friday, Fri. pt wants home with dialysis, educated pt currently she is on HD, not PD, will double check with renal BP still high at 150-160s Vitals Vitals Vital Signs Date Time Temp Pulse Resp B/P (MAP) Pulse Ox O2 Delivery O2 Flow Rate FiO2 12/17/17 11:53 60 15 100 Nasal Cannula 2.0 12/17/17 10:50 97.7 163/77 (105) 97.7 Physical Exam General: Alert, Oriented X3, Cooperative, No acute distress Heart: Normal S1, Normal S2, No murmurs Lungs: Clear Abdomen: Normal bowel sounds, Soft Extremities: No clubbing, No cyanosis, Other (bl leg 2+ edema) Skin: No rashes, No breakdown Labs LABS Laboratory Tests Test 12/17/17 06:00 White Blood Count 3.5 x10^3/uL (4.0-11.0) Red Blood Count 3.06 x10^6/uL (3.50-5.40) Hemoglobin 9.8 g/dL (12.0-15.5) Hematocrit 29.2 % (36.0-47.0) Mean Corpuscular Volume 96 fL (79-100) Mean Corpuscular Hemoglobin 32 pg (25-35) Mean Corpuscular Hemoglobin Concent 34 g/dL (31-37) Red Cell Distribution Width 16.7 % (11.5-14.5) Platelet Count 197 x10^3/uL (140-400) Neutrophils (%) (Auto) 54 % (31-73) Lymphocytes (%) (Auto) 24 % (24-48) Monocytes (%) (Auto) 13 % (0-9) Eosinophils (%) (Auto) 8 % (0-3) Basophils (%) (Auto) 1 % (0-3) Neutrophils # (Auto) 1.9 x10^3uL (1.8-7.7) Lymphocytes # (Auto) 0.8 x10^3/uL (1.0-4.8) Monocytes # (Auto) 0.4 x10^3/uL (0.0-1.1) Eosinophils # (Auto) 0.3 x10^3/uL (0.0-0.7) Basophils # (Auto) 0.0 x10^3/uL (0.0-0.2) Assessment and Plan Assessmemt and Plan Problems Medical Problems: (1) TOSHIA (acute kidney injury) Status: Acute (2) CHF (congestive heart failure) Status: Acute (3) Hypertensive emergency Status: Acute (4) NSTEMI (non-ST elevated myocardial infarction) Status: Acute Comment Review of Relevant I have reviewed the following items batsheva (where applicable) has been applied. Labs Laboratory Tests Test 12/16/17 04:30 12/16/17 10:00 12/17/17 06:00 White Blood Count 4.2 x10^3/uL (4.0-11.0) 3.5 x10^3/uL (4.0-11.0) Red Blood Count 3.02 x10^6/uL (3.50-5.40) 3.06 x10^6/uL (3.50-5.40) Hemoglobin 9.5 g/dL (12.0-15.5) 9.8 g/dL (12.0-15.5) Hematocrit 28.9 % (36.0-47.0) 29.2 % (36.0-47.0) Mean Corpuscular Volume 96 fL (79-100) 96 fL (79-100) Mean Corpuscular Hemoglobin 32 pg (25-35) 32 pg (25-35) Mean Corpuscular Hemoglobin Concent 33 g/dL (31-37) 34 g/dL (31-37) Red Cell Distribution Width 16.8 % (11.5-14.5) 16.7 % (11.5-14.5) Platelet Count 178 x10^3/uL (140-400) 197 x10^3/uL (140-400) Neutrophils (%) (Auto) 55 % (31-73) 54 % (31-73) Lymphocytes (%) (Auto) 23 % (24-48) 24 % (24-48) Monocytes (%) (Auto) 12 % (0-9) 13 % (0-9) Eosinophils (%) (Auto) 9 % (0-3) 8 % (0-3) Basophils (%) (Auto) 2 % (0-3) 1 % (0-3) Neutrophils # (Auto) 2.3 x10^3uL (1.8-7.7) 1.9 x10^3uL (1.8-7.7) Lymphocytes # (Auto) 0.9 x10^3/uL (1.0-4.8) 0.8 x10^3/uL (1.0-4.8) Monocytes # (Auto) 0.5 x10^3/uL (0.0-1.1) 0.4 x10^3/uL (0.0-1.1) Eosinophils # (Auto) 0.4 x10^3/uL (0.0-0.7) 0.3 x10^3/uL (0.0-0.7) Basophils # (Auto) 0.1 x10^3/uL (0.0-0.2) 0.0 x10^3/uL (0.0-0.2) Sodium Level 139 mmol/L (136-145) Potassium Level 4.0 mmol/L (3.5-5.1) Chloride Level 102 mmol/L (98-107) Carbon Dioxide Level 26 mmol/L (21-32) Anion Gap 11 (6-14) Blood Urea Nitrogen 31 mg/dL (7-20) Creatinine 3.8 mg/dL (0.6-1.0) Estimated GFR (Cockcroft-Gault) 15.0 Glucose Level 104 mg/dL (70-99) Calcium Level 8.7 mg/dL (8.5-10.1) Immunoglobulin G 1199 mg/dL (700-1600) Immunoglobulin A 168 mg/dL (87-352) Immunoglobulin M 23 mg/dL (26-217) Iron Level 38 ug/dL (50-170) Total Iron Binding Capacity 255 ug/dL (250-450) Iron Saturation 15 % (15-34) Ferritin 138 ng/mL (8-252) Laboratory Tests Test 12/17/17 06:00 White Blood Count 3.5 x10^3/uL (4.0-11.0) Red Blood Count 3.06 x10^6/uL (3.50-5.40) Hemoglobin 9.8 g/dL (12.0-15.5) Hematocrit 29.2 % (36.0-47.0) Mean Corpuscular Volume 96 fL (79-100) Mean Corpuscular Hemoglobin 32 pg (25-35) Mean Corpuscular Hemoglobin Concent 34 g/dL (31-37) Red Cell Distribution Width 16.7 % (11.5-14.5) Platelet Count 197 x10^3/uL (140-400) Neutrophils (%) (Auto) 54 % (31-73) Lymphocytes (%) (Auto) 24 % (24-48) Monocytes (%) (Auto) 13 % (0-9) Eosinophils (%) (Auto) 8 % (0-3) Basophils (%) (Auto) 1 % (0-3) Neutrophils # (Auto) 1.9 x10^3uL (1.8-7.7) Lymphocytes # (Auto) 0.8 x10^3/uL (1.0-4.8) Monocytes # (Auto) 0.4 x10^3/uL (0.0-1.1) Eosinophils # (Auto) 0.3 x10^3/uL (0.0-0.7) Basophils # (Auto) 0.0 x10^3/uL (0.0-0.2) Medications Current Medications Aspirin (Children'S Aspirin) 324 mg 1X ONCE PO Last administered on 12/09/17at 16:08; Start 12/09/17 at 16:00; Stop 12/09/17 at 16:06; Status DC Nitroglycerin (Nitrostat) 0.4 mg PRN Q5MIN PRN SL CP RATING > 1/10 Last administered on 12/09/17at 16:16; Start 12/09/17 at 16:00; Stop 12/10/17 at 15:59 ; Status DC Nitroglycerin (Nitrostat) 0.4 mg STK-MED ONCE SL ; Start 12/09/17 at 16:00; Stop 12/09/17 at 16:01; Status DC Nitroglycerin/ Dextrose 250 ml @ 0 mls/hr 1X ONCE IV Last administered on 12/09at 16:29; Start 12/09/17 at 16:30; Stop 12/09/17 at 18:52; Status DC Furosemide (Lasix) 40 mg 1X ONCE IVP Last administered on 12/09/17at 16:45; Start 12/09/17 at 16:45; Stop 12/09/17 at 16:46; Status DC Ondansetron HCl (Zofran) 4 mg PRN Q8HRS PRN IV NAUSEA/VOMITING; Start 12/09/17 at 17:45; Stop 12/10/17 at 17:44; Status DC Fentanyl Citrate (Fentanyl 2ml Vial) 50 mcg PRN Q1HR PRN IV PAIN; Start at 17:45; Stop 12/10/17 at 17:44; Status DC Acetaminophen (Tylenol) 650 mg PRN Q4HRS PRN PO FEVER; Start 12/09/17 at 17:45 ; Stop 12/10/17 at 17:44; Status DC Nicardipine HCl 50 mg/Sodium Chloride 270 ml @ 27 mls/hr CONT PRN IV SEE I/O RECORD Last administered on 12/09/17at 23:32; Start 12/09/17 at 19:00; Stop 12/12 at 11:19; Status DC Furosemide 100 mg/ Sodium Chloride 100 ml @ 5 mls/hr CONT PRN IV SEE I/O RECORD Last administered on 12/11/17at 00:57; Start 12/09/17 at 19:15 Labetalol HCl (Trandate) 200 mg BID PO Last administered on 12/10/17at 08:40; Start 12/09/17 at 21:00; Stop 12/10/17 at 12:52; Status DC Clonazepam (KlonoPIN) 1 mg PRN QHS PRN PO ANXIETY / AGITATION Last administered on 12/11/17at 20:49; Start 12/09/17 at 21:15 Clonidine HCl (Catapres) 0.1 mg Q8HRS PO Last administered on 12/12/17at 05:56; Start 12/10/17 at 09:30; Stop 12/12/17 at 11:19; Status DC Lidocaine/Sodium Bicarbonate (Buffered Lidocaine 1%) 3 ml 1X ONCE INJ Last administered on 12/10/17at 09:50; Start 12/10/17 at 09:30; Stop 12/10/17 at 09:33 ; Status DC Heparin Sodium (Porcine) (Heparin Sodium) 2,600 unit 1X ONCE INT CAT Last administered on 12/10/17at 09:50; Start 12/10/17 at 09:30; Stop 12/10/17 at 09:33 ; Status DC Lidocaine/Sodium Bicarbonate (Buffered Lidocaine 1%) 3 ml STK-MED ONCE .ROUTE ; Start 12/10/17 at 09:30; Stop 12/10/17 at 09:31; Status DC Heparin Sodium (Porcine) (Heparin Sodium) 10,000 unit STK-MED ONCE .ROUTE ; Start 12/10/17 at 09:30; Stop 12/10/17 at 09:32; Status DC Lidocaine/Sodium Bicarbonate (Buffered Lidocaine 1%) 6 ml 1X ONCE INJ ; Start 12/10/17 at 10:15; Stop 12/10/17 at 10:16; Status DC Heparin Sodium (Porcine) (Heparin Sodium) 2,800 unit 1X ONCE INT CAT ; Start at 10:15; Stop 12/10/17 at 10:16; Status DC Labetalol HCl (Trandate) 400 mg BID PO Last administered on 12/17/17at 09:10; Start 12/10/17 at 21:00 Labetalol HCl (Trandate) 200 mg 1X ONCE PO Last administered on 12/10/17at 13: 09; Start 12/10/17 at 13:00; Stop 12/10/17 at 13:01; Status DC Heparin Sodium (Porcine) (Heparin Sq) 5,000 unit Q12HR SQ Last administered on 12/16/17at 09:19; Start 12/10/17 at 21:00 Regadenoson (Lexiscan) 0.4 mg 1X ONCE IV Last administered on 12/11/17at 12:05 ; Start 12/11/17 at 11:30; Stop 12/11/17 at 11:31; Status DC Clonidine HCl (Catapres) 0.2 mg Q8HRS PO Last administered on 12/17/17at 06:14; Start 12/12/17 at 14:00 Amlodipine Besylate (Norvasc) 10 mg DAILYWSUP PO Last administered on at 17:20; Start 12/12/17 at 17:00 Sodium Chloride 1,000 ml @ 1,000 mls/hr Q1H PRN IV hypotension; Start 12/13/17 at 13:30; Stop 12/13/17 at 19:29; Status DC Sodium Chloride 1,000 ml @ 400 mls/hr Q2H30M PRN IV PATENCY; Start 12/13/17 at 13:30; Stop 12/14/17 at 01:29; Status DC Info (PHARMACY MONITORING -- do not chart) 1 each PRN DAILY PRN MC SEE COMMENTS ; Start 12/13/17 at 16:15; Status UNV Info (PHARMACY MONITORING -- do not chart) 1 each PRN DAILY PRN MC SEE COMMENTS ; Start 12/13/17 at 16:15 Sodium Chloride 1,000 ml @ 1,000 mls/hr Q1H PRN IV hypotension; Start 12/15/17 at 09:07; Stop 12/15/17 at 15:06; Status DC Albumin Human 200 ml @ 200 mls/hr 1X PRN PRN IV Hypotension; Start 12/15/17 at 09:15; Stop 12/15/17 at 15:14; Status DC Sodium Chloride 1,000 ml @ 400 mls/hr Q2H30M PRN IV PATENCY; Start 12/15/17 at 09:07; Stop 12/15/17 at 21:06; Status DC Info (PHARMACY MONITORING -- do not chart) 1 each PRN DAILY PRN MC SEE COMMENTS ; Start 12/15/17 at 09:15; Status UNV Info (PHARMACY MONITORING -- do not chart) 1 each PRN DAILY PRN MC SEE COMMENTS ; Start 12/15/17 at 09:15; Status UNV Acetaminophen (Tylenol) 650 mg PRN Q6HRS PRN PO FEVER; Start 12/15/17 at 14:30 Ondansetron HCl (Zofran) 4 mg PRN Q6HRS PRN IV NAUSEA/VOMITING; Start 12/15/17 at 14:30 Morphine Sulfate (Morphine Sulfate) 2 mg PRN Q2HR PRN IV MODERATE TO SEVERE PAIN; Start 12/15/17 at 14:30 Tramadol HCl (Ultram) 50 mg PRN Q6HRS PRN PO MILD TO MODERATE PAIN; Start 12/15 at 14:30 Docusate Sodium (Colace) 100 mg PRN DAILY PRN PO CONSTIPATION; Start 12/15/17 at 14:30 Sodium Chloride 1,000 ml @ 1,000 mls/hr Q1H PRN IV hypotension; Start 12/17/17 at 07:16; Stop 12/17/17 at 13:15 Sodium Chloride 1,000 ml @ 400 mls/hr Q2H30M PRN IV PATENCY; Start 12/17/17 at 07:16; Stop 12/17/17 at 19:15 Info (PHARMACY MONITORING -- do not chart) 1 each PRN DAILY PRN MC SEE COMMENTS ; Start 12/17/17 at 07:30; Stop 12/17/17 at 07:30; Status DC Info (PHARMACY MONITORING -- do not chart) 1 each PRN DAILY PRN MC SEE COMMENTS ; Start 12/17/17 at 07:30; Stop 12/17/17 at 07:30; Status DC Lidocaine/ Epinephrine (LIDOCAINE 1%-EPI 1:100,000 Multi-Dose) 20 ml STK-MED ONCE .ROUTE ; Start 12/17/17 at 10:51; Stop 12/17/17 at 10:53; Status DC Heparin Sodium (Porcine) (Heparin Sodium) 10,000 unit STK-MED ONCE .ROUTE ; Start 12/17/17 at 10:52; Stop 12/17/17 at 10:53; Status DC Midazolam HCl (Versed) 2 mg STK-MED ONCE .ROUTE ; Start 12/17/17 at 11:03; Stop 12/17/17 at 11:04; Status DC Fentanyl Citrate (Fentanyl 2ml Vial) 100 mcg STK-MED ONCE .ROUTE ; Start at 11:03; Stop 12/17/17 at 11:04; Status DC Cefazolin Sodium/ Dextrose 50 ml @ As Directed STK-MED ONCE IV ; Start 12/17/17 at 11:03; Stop 12/17/17 at 11:05; Status DC Midazolam HCl (Versed) 2 mg 1X ONCE IV Last administered on 12/17/17at 11:52; Start 12/17/17 at 11:45; Stop 12/17/17 at 11:48; Status DC Fentanyl Citrate (Fentanyl 2ml Vial) 100 mcg 1X ONCE IV Last administered on 12/17/17at 11:52; Start 12/17/17 at 11:45; Stop 12/17/17 at 11:47; Status DC Lidocaine/ Epinephrine (LIDOCAINE 1%-EPI 1:100,000 Multi-Dose) 9 ml 1X ONCE IJ Last administered on 12/17/17at 11:51; Start 12/17/17 at 11:45; Stop 12/17/17 at 11:47; Status DC Heparin Sodium (Porcine) (Heparin Sodium) 3,800 unit 1X ONCE INT CAT Last administered on 12/17/17at 11:51; Start 12/17/17 at 11:45; Stop 12/17/17 at 11:47 ; Status DC Cefazolin Sodium/ Dextrose 50 ml @ 100 mls/hr 1X ONCE IV Last administered on 12/17/17at 11:51; Start 12/17/17 at 11:45; Stop 12/17/17 at 12:14; Status DC Vitals/I & O Vital Sign - Last 24 Hours 12/16/17 12/16/17 12/16/17 12/16/17 15:00 15:08 17:20 19:57 Temp 97.6 97.7 97.6 97.7 Pulse 63 60 60 62 Resp 19 16 B/P (MAP) 149/73 (98) 157/74 157/74 153/79 (103) Pulse Ox 97 98 O2 Delivery Room Air Room Air 12/16/17 12/16/17 12/16/17 12/16/17 20:05 21:10 21:10 23:08 Temp 97.7 97.7 Pulse 60 60 57 Resp 16 B/P (MAP) 174/83 174/83 158/73 (101) Pulse Ox 100 O2 Delivery Room Air Nasal Cannula O2 Flow Rate 2.0 12/17/17 12/17/17 12/17/17 12/17/17 03:36 06:14 07:43 08:00 Temp 98.2 97.6 98.2 97.6 Pulse 58 57 56 Resp 16 16 B/P (MAP) 152/78 (102) 163/75 164/77 (106) Pulse Ox 100 100 O2 Delivery Nasal Cannula Nasal Cannula Room Air O2 Flow Rate 2.0 2.0 10/06/0112/17/17 12/17/17 12/17/17 09:10 10:50 11:52 11:53 Temp 97.7 97.7 Pulse 60 58 60 Resp 16 18 15 B/P (MAP) 164/77 163/77 (105) Pulse Ox 95 100 100 O2 Delivery Nasal Cannula Nasal Cannula Nasal Cannula O2 Flow Rate 2.0 2.0 2.0 Intake and Output 12/16/17 12/16/17 12/17/17 15:00 23:00 07:00 Intake Total 1300 ml 300 ml Output Total 550 ml Balance 750 ml 300 ml TOBIN MAGANA MD Dec 17, 2017 13:11
[2017-12-17 15:33] LABS: ALBUM 2.3 g/dL (2.9-4.4); ALPHA 1 0.3 g/dL (0.0-0.4); ALPHA 2 0.6 g/dL (0.4-1.0); BETA 0.8 g/dL (0.7-1.3); PROTEIN TOTAL 4.9 g/dL (6.0-8.5); SPEP AG RATIO 0.9 (0.7-1.7)
--- NOTE | 2017-12-17 16:34 | RAD ---
Conversion of right internal jugular temporary dialysis catheter to tunneled dialysis catheter 12/17/2017 Discussion: Risks and benefits of the procedure were discussed the patient. Informed consent was obtained. A timeout procedure was performed. The patient was placed in the supine position on the fluoroscopy table. The right neck and chest including the pre-existing catheter were prepped and draped using sterile barrier technique. Fluoroscopic evaluation demonstrates the pre-existing catheter to be well-positioned. A guidewire was advanced through the pre-existing catheter into the inferior vena cava. Pre-existing catheter was removed over the wire. A 23 cm tip to cuff palindrome tunneled dialysis catheter was advanced from small dermatotomy several centimeters inferior to the right clavicle to the access site in the right neck. Catheter was advanced through peel-away sheath such that its tip was in the mid right atrium with the patient supine. The catheter was found to flush and aspirate normally. The catheter was packed with heparin, secured, sterile dressings were applied. No immediate competitions were identified. Fluoroscopy time: 0.3 minutes Dose area product 3 mGycm2 The procedures performed under conscious sedation including continuous cardiopulmonary monitoring via dedicated sedation nurse. [id number] sedation time: 30 minutes Impression: Conversion of a right internal jugular temporary dialysis catheter to a tunneled dialysis catheter
[2017-12-17] MEDS: amLODIPine BESYLATE 10 MG TABLET PO SCH (18:12)
[2017-12-18 03:27] VITALS: BP 129/69
[2017-12-18 05:16] LABS: BASO % 1 % (0-3); EOS # 0.3 x10^3/uL (0.0-0.7); EOS % 7 % (0-3); HEMATOCRIT 28.7 % (36.0-47.0); HEMOGLOBIN 9.6 g/dL (12.0-15.5); LYMPH # 0.9 x10^3/uL (1.0-4.8); LYMPH % 22 % (24-48); MEAN CORPUSCULAR HEMOGLOBIN 32 pg (25-35); MEAN CORPUSCULAR HGB CONC 34 g/dL (31-37); MEAN CORPUSCULAR VOLUME 95 fL (79-100); MONO # 0.4 x10^3/uL (0.0-1.1); MONO % 9 % (0-9); NEUT # 2.6 x10^3uL (1.8-7.7); NEUT % 61 % (31-73); PLATELET COUNT 199 x10^3/uL (140-400); RED BLOOD COUNT 3.02 x10^6/uL (3.50-5.40); RED CELL DISTRIBUTION WIDTH 16.5 % (11.5-14.5); WHITE BLOOD COUNT 4.3 x10^3/uL (4.0-11.0)
[2017-12-18] MEDS: cloNIDine HCL 0.2 MG TABLET PO SCH ×3 (05:56→20:42)
[2017-12-18 07:36] VITALS: BP 154/72
[2017-12-18] MEDS: LABETALOL HCL 200 MG TABLET PO SCH ×2 (08:48→20:41)
[2017-12-18] MEDS: HEPARIN PF for SUB-Q USE 5,000 UNIT/0.5 ML VIAL. SQ SCH ×2 (08:54→20:44)
[2017-12-18 11:16] VITALS: BP 141/68
--- NOTE | 2017-12-18 12:43 | PDOC ---
SUBJECTIVE ROS No new concerns Voiced , states feeing good OBJECTIVE Vital Signs Vital Signs Date Time Temp Pulse Resp B/P (MAP) Pulse Ox O2 Delivery O2 Flow Rate FiO2 12/18/17 11:16 98.0 58 20 141/68 (92) 92 Room Air 98.0 12/17/17 11:53 2.0 I & 0 Intake and Output 12/18/17 07:00 Intake Total 650 ml Output Total 400 ml Balance 250 ml Intake Oral 650 ml Output Urine Total 400 ml # Voids 2 PHYSICAL EXAM Physical Exam GEN: NAD HEENT- OM moist, NECK: No JVD CVS: S1S2, Murmur + RESP: Bilat crackles +, Non labored breathing GI: BS + ve, Non Tender, obese : No CVA tenderness, no Suprapubic Tenderness,No christopher Skin No rash Neuro- AxO, grossly Normal TDC + DIAGNOSIS/ASSESSMENT Assessment & Plan New Onset ESRD - Unknown baseline renal function No Known significant Past hx Renal US - echogenic Kidneys cw CKD , No significant Microscopic hematuria Oliguric on admission with good response to IV lasix drip Initiated on HD (12/13 Has TDC, awaiting OP chair time Proteinuria- Nephrotic ranges, No sign micr hematuria CESAR for Nephrotic Proteinuria -Hepatitis Negative , BAM P, complements Normal K and L - High , ratio high, anemic- could be sec to Renal failure Ig normal , Hem/Onc following HTN Urgency -- BP at goal Renal Doppler No significant findings ? CKD- HTNsive Nephrosclerosis US consistent with CKD Anemia- Tsat low , Hgb stable ? Colonoscopy if Indicated as per Primary she will receive IV Fe as per protocol once she starts OP HD Shortness of Breath- CxR Pulm edema, BNP elevated TTE with preserved LVEF; mild concentric LVH and mild to moderate MR/TR with pulm HTN and PA of 52 mm Hg COMMENT/RELEVANT DATA Meds Current Medications Medications (Trade) Dose Ordered Sig/Keri Start Time Stop Time Status Last Admin Dose Admin Acetaminophen (Tylenol) 650 mg PRN Q6HRS PRN 12/15/17 14:30 Albumin Human 200 ml @ 200 mls/hr 1X PRN PRN 12/15/17 09:15 12/15/17 15:14 DC Amlodipine Besylate (Norvasc) 10 mg DAILYWSUP 12/12/17 17:00 12/17/17 18:12 10 MG Aspirin (Children'S Aspirin) 324 mg 1X ONCE 12/09/17 16:00 12/09/17 16:06 DC 12/09/17 16:08 324 MG Cefazolin Sodium/ Dextrose 50 ml @ 100 mls/hr 1X ONCE 12/17/17 11:45 12/17/17 12:14 DC 12/17/17 11:51 100 MLS/HR Clonazepam (KlonoPIN) 1 mg PRN QHS PRN 12/09/17 21:15 12/11/17 20:49 1 MG Clonidine HCl (Catapres) 0.2 mg Q8HRS 12/12/17 14:00 12/18/17 05:56 0.2 MG Docusate Sodium (Colace) 100 mg PRN DAILY PRN 12/15/17 14:30 Fentanyl Citrate (Fentanyl 2ml Vial) 100 mcg 1X ONCE 12/17/17 11:45 12/17/17 11:47 DC 12/17/17 11:52 100 MCG Furosemide (Lasix) 40 mg 1X ONCE 12/09/17 16:45 12/09/17 16:46 DC 12/09/17 16:45 40 MG Furosemide 100 mg/ Sodium Chloride 100 ml @ 5 mls/hr CONT PRN 12/09/17 19:15 12/11/17 00:57 10 MLS/HR Heparin Sodium (Porcine) (Heparin Sodium) 3,800 unit 1X ONCE 12/17/17 11:45 12/17/17 11:47 DC 12/17/17 11:51 3,800 UNIT Heparin Sodium (Porcine) (Heparin Sq) 5,000 unit Q12HR 12/10/17 21:00 12/18/17 08:54 5,000 UNIT Info (PHARMACY MONITORING -- do not chart) 1 each PRN DAILY PRN 12/17/17 07:30 12/17/17 07:30 DC Labetalol HCl (Trandate) 200 mg 1X ONCE 12/10/17 13:00 12/10/17 13:01 DC 12/10/17 13:09 200 MG Lidocaine/ Epinephrine (LIDOCAINE 1%-EPI 1:100,000 Multi-Dose) 9 ml 1X ONCE 12/17/17 11:45 12/17/17 11:47 DC 12/17/17 11:51 9 ML Lidocaine/Sodium Bicarbonate (Buffered Lidocaine 1%) 6 ml 1X ONCE 12/10/17 10:15 12/10/17 10:16 DC Midazolam HCl (Versed) 2 mg 1X ONCE 12/17/17 11:45 12/17/17 11:48 DC 12/17/17 11:52 2 MG Morphine Sulfate (Morphine Sulfate) 2 mg PRN Q2HR PRN 12/15/17 14:30 Nicardipine HCl 50 mg/Sodium Chloride 270 ml @ 27 mls/hr CONT PRN 12/09/17 19:00 12/12/17 11:19 DC 12/09/17 23:32 27 MLS/HR Nitroglycerin (Nitrostat) 0.4 mg STK-MED ONCE 12/09/17 16:00 12/09/17 16:01 DC Nitroglycerin/ Dextrose 250 ml @ 0 mls/hr 1X ONCE 12/09/17 16:30 12/09/17 18:52 DC 12/09/17 16:29 1.5 MLS/HR Ondansetron HCl (Zofran) 4 mg PRN Q6HRS PRN 12/15/17 14:30 Regadenoson (Lexiscan) 0.4 mg 1X ONCE 12/11/17 11:30 12/11/17 11:31 DC 12/11/17 12:05 0.4 MG Sodium Chloride 1,000 ml @ 400 mls/hr Q2H30M PRN 12/17/17 07:16 12/17/17 19:15 DC Tramadol HCl (Ultram) 50 mg PRN Q6HRS PRN 12/15/17 14:30 Lab Laboratory Tests Test 12/18/17 04:30 White Blood Count 4.3 x10^3/uL (4.0-11.0) Red Blood Count 3.02 x10^6/uL (3.50-5.40) Hemoglobin 9.6 g/dL (12.0-15.5) Hematocrit 28.7 % (36.0-47.0) Mean Corpuscular Volume 95 fL (79-100) Mean Corpuscular Hemoglobin 32 pg (25-35) Mean Corpuscular Hemoglobin Concent 34 g/dL (31-37) Red Cell Distribution Width 16.5 % (11.5-14.5) Platelet Count 199 x10^3/uL (140-400) Neutrophils (%) (Auto) 61 % (31-73) Lymphocytes (%) (Auto) 22 % (24-48) Monocytes (%) (Auto) 9 % (0-9) Eosinophils (%) (Auto) 7 % (0-3) Basophils (%) (Auto) 1 % (0-3) Neutrophils # (Auto) 2.6 x10^3uL (1.8-7.7) Lymphocytes # (Auto) 0.9 x10^3/uL (1.0-4.8) Monocytes # (Auto) 0.4 x10^3/uL (0.0-1.1) Eosinophils # (Auto) 0.3 x10^3/uL (0.0-0.7) Basophils # (Auto) 0.0 x10^3/uL (0.0-0.2) Results All relevant outside records, renal labs, imaging studies, telemetry/EKG's were reviewed. THADDEUS GOMEZ MD Dec 18, 2017 12:43
--- NOTE | 2017-12-18 14:44 | PDOC ---
PROGRESS NOTES Chief Complaint Chief Complaint Acute systolic heart failure, ATN TOSHIA, ATN likely CKD 3? Hypertensive emergency Ischemic cardiomyopathy\ plan: fu with card, renal moderate risk of MPI on HD now, need cont HD as outpt, get SW for HD set up dvt ppx on amlodipine and clonidine labetolol as per card for HTN ,still high side, will cont ob onco fu for possible myeloma, waiting for SPEP perma HD cath done History of Present Illness History of Present Illness Pt seen and examined Pt alert & oriented;affect appropriate., pt has no sob, bl edema gone VSS Dw RN HD SAT, friday, Fri. pt wants home with dialysis, educated pt currently she is on HD, not PD, will double check with renal BP still high at 150-160s Vitals Vitals Vital Signs Date Time Temp Pulse Resp B/P (MAP) Pulse Ox O2 Delivery O2 Flow Rate FiO2 12/18/17 13:54 58 166/74 12/18/17 11:16 98.0 20 92 Room Air 98.0 12/17/17 11:53 2.0 Physical Exam General: Alert, Oriented X3, Cooperative, No acute distress Heart: Normal S1, Normal S2, No murmurs Lungs: Clear Abdomen: Normal bowel sounds, Soft Extremities: No clubbing, No cyanosis, Other (bl leg 2+ edema) Skin: No rashes, No breakdown Labs LABS Laboratory Tests Test 12/18/17 04:30 White Blood Count 4.3 x10^3/uL (4.0-11.0) Red Blood Count 3.02 x10^6/uL (3.50-5.40) Hemoglobin 9.6 g/dL (12.0-15.5) Hematocrit 28.7 % (36.0-47.0) Mean Corpuscular Volume 95 fL (79-100) Mean Corpuscular Hemoglobin 32 pg (25-35) Mean Corpuscular Hemoglobin Concent 34 g/dL (31-37) Red Cell Distribution Width 16.5 % (11.5-14.5) Platelet Count 199 x10^3/uL (140-400) Neutrophils (%) (Auto) 61 % (31-73) Lymphocytes (%) (Auto) 22 % (24-48) Monocytes (%) (Auto) 9 % (0-9) Eosinophils (%) (Auto) 7 % (0-3) Basophils (%) (Auto) 1 % (0-3) Neutrophils # (Auto) 2.6 x10^3uL (1.8-7.7) Lymphocytes # (Auto) 0.9 x10^3/uL (1.0-4.8) Monocytes # (Auto) 0.4 x10^3/uL (0.0-1.1) Eosinophils # (Auto) 0.3 x10^3/uL (0.0-0.7) Basophils # (Auto) 0.0 x10^3/uL (0.0-0.2) Assessment and Plan Assessmemt and Plan Problems Medical Problems: (1) TOSHIA (acute kidney injury) Status: Acute (2) CHF (congestive heart failure) Status: Acute (3) Hypertensive emergency Status: Acute (4) NSTEMI (non-ST elevated myocardial infarction) Status: Acute Comment Review of Relevant I have reviewed the following items batsheva (where applicable) has been applied. Labs Laboratory Tests Test 12/17/17 06:00 12/18/17 04:30 White Blood Count 3.5 x10^3/uL (4.0-11.0) 4.3 x10^3/uL (4.0-11.0) Red Blood Count 3.06 x10^6/uL (3.50-5.40) 3.02 x10^6/uL (3.50-5.40) Hemoglobin 9.8 g/dL (12.0-15.5) 9.6 g/dL (12.0-15.5) Hematocrit 29.2 % (36.0-47.0) 28.7 % (36.0-47.0) Mean Corpuscular Volume 96 fL (79-100) 95 fL (79-100) Mean Corpuscular Hemoglobin 32 pg (25-35) 32 pg (25-35) Mean Corpuscular Hemoglobin Concent 34 g/dL (31-37) 34 g/dL (31-37) Red Cell Distribution Width 16.7 % (11.5-14.5) 16.5 % (11.5-14.5) Platelet Count 197 x10^3/uL (140-400) 199 x10^3/uL (140-400) Neutrophils (%) (Auto) 54 % (31-73) 61 % (31-73) Lymphocytes (%) (Auto) 24 % (24-48) 22 % (24-48) Monocytes (%) (Auto) 13 % (0-9) 9 % (0-9) Eosinophils (%) (Auto) 8 % (0-3) 7 % (0-3) Basophils (%) (Auto) 1 % (0-3) 1 % (0-3) Neutrophils # (Auto) 1.9 x10^3uL (1.8-7.7) 2.6 x10^3uL (1.8-7.7) Lymphocytes # (Auto) 0.8 x10^3/uL (1.0-4.8) 0.9 x10^3/uL (1.0-4.8) Monocytes # (Auto) 0.4 x10^3/uL (0.0-1.1) 0.4 x10^3/uL (0.0-1.1) Eosinophils # (Auto) 0.3 x10^3/uL (0.0-0.7) 0.3 x10^3/uL (0.0-0.7) Basophils # (Auto) 0.0 x10^3/uL (0.0-0.2) 0.0 x10^3/uL (0.0-0.2) Laboratory Tests Test 12/18/17 04:30 White Blood Count 4.3 x10^3/uL (4.0-11.0) Red Blood Count 3.02 x10^6/uL (3.50-5.40) Hemoglobin 9.6 g/dL (12.0-15.5) Hematocrit 28.7 % (36.0-47.0) Mean Corpuscular Volume 95 fL (79-100) Mean Corpuscular Hemoglobin 32 pg (25-35) Mean Corpuscular Hemoglobin Concent 34 g/dL (31-37) Red Cell Distribution Width 16.5 % (11.5-14.5) Platelet Count 199 x10^3/uL (140-400) Neutrophils (%) (Auto) 61 % (31-73) Lymphocytes (%) (Auto) 22 % (24-48) Monocytes (%) (Auto) 9 % (0-9) Eosinophils (%) (Auto) 7 % (0-3) Basophils (%) (Auto) 1 % (0-3) Neutrophils # (Auto) 2.6 x10^3uL (1.8-7.7) Lymphocytes # (Auto) 0.9 x10^3/uL (1.0-4.8) Monocytes # (Auto) 0.4 x10^3/uL (0.0-1.1) Eosinophils # (Auto) 0.3 x10^3/uL (0.0-0.7) Basophils # (Auto) 0.0 x10^3/uL (0.0-0.2) Medications Current Medications Aspirin (Children'S Aspirin) 324 mg 1X ONCE PO Last administered on 12/09/17at 16:08; Start 12/09/17 at 16:00; Stop 12/09/17 at 16:06; Status DC Nitroglycerin (Nitrostat) 0.4 mg PRN Q5MIN PRN SL CP RATING > 1/10 Last administered on 12/09/17at 16:16; Start 12/09/17 at 16:00; Stop 12/10/17 at 15:59 ; Status DC Nitroglycerin (Nitrostat) 0.4 mg STK-MED ONCE SL ; Start 12/09/17 at 16:00; Stop 12/09/17 at 16:01; Status DC Nitroglycerin/ Dextrose 250 ml @ 0 mls/hr 1X ONCE IV Last administered on 12/09at 16:29; Start 12/09/17 at 16:30; Stop 12/09/17 at 18:52; Status DC Furosemide (Lasix) 40 mg 1X ONCE IVP Last administered on 12/09/17at 16:45; Start 12/09/17 at 16:45; Stop 12/09/17 at 16:46; Status DC Ondansetron HCl (Zofran) 4 mg PRN Q8HRS PRN IV NAUSEA/VOMITING; Start 12/09/17 at 17:45; Stop 12/10/17 at 17:44; Status DC Fentanyl Citrate (Fentanyl 2ml Vial) 50 mcg PRN Q1HR PRN IV PAIN; Start at 17:45; Stop 12/10/17 at 17:44; Status DC Acetaminophen (Tylenol) 650 mg PRN Q4HRS PRN PO FEVER; Start 12/09/17 at 17:45 ; Stop 12/10/17 at 17:44; Status DC Nicardipine HCl 50 mg/Sodium Chloride 270 ml @ 27 mls/hr CONT PRN IV SEE I/O RECORD Last administered on 12/09/17at 23:32; Start 12/09/17 at 19:00; Stop 12/12 at 11:19; Status DC Furosemide 100 mg/ Sodium Chloride 100 ml @ 5 mls/hr CONT PRN IV SEE I/O RECORD Last administered on 12/11/17at 00:57; Start 12/09/17 at 19:15 Labetalol HCl (Trandate) 200 mg BID PO Last administered on 12/10/17at 08:40; Start 12/09/17 at 21:00; Stop 12/10/17 at 12:52; Status DC Clonazepam (KlonoPIN) 1 mg PRN QHS PRN PO ANXIETY / AGITATION Last administered on 12/11/17at 20:49; Start 12/09/17 at 21:15 Clonidine HCl (Catapres) 0.1 mg Q8HRS PO Last administered on 12/12/17at 05:56; Start 12/10/17 at 09:30; Stop 12/12/17 at 11:19; Status DC Lidocaine/Sodium Bicarbonate (Buffered Lidocaine 1%) 3 ml 1X ONCE INJ Last administered on 12/10/17at 09:50; Start 12/10/17 at 09:30; Stop 12/10/17 at 09:33 ; Status DC Heparin Sodium (Porcine) (Heparin Sodium) 2,600 unit 1X ONCE INT CAT Last administered on 12/10/17at 09:50; Start 12/10/17 at 09:30; Stop 12/10/17 at 09:33 ; Status DC Lidocaine/Sodium Bicarbonate (Buffered Lidocaine 1%) 3 ml STK-MED ONCE .ROUTE ; Start 12/10/17 at 09:30; Stop 12/10/17 at 09:31; Status DC Heparin Sodium (Porcine) (Heparin Sodium) 10,000 unit STK-MED ONCE .ROUTE ; Start 12/10/17 at 09:30; Stop 12/10/17 at 09:32; Status DC Lidocaine/Sodium Bicarbonate (Buffered Lidocaine 1%) 6 ml 1X ONCE INJ ; Start 12/10/17 at 10:15; Stop 12/10/17 at 10:16; Status DC Heparin Sodium (Porcine) (Heparin Sodium) 2,800 unit 1X ONCE INT CAT ; Start at 10:15; Stop 12/10/17 at 10:16; Status DC Labetalol HCl (Trandate) 400 mg BID PO Last administered on 12/18/17at 08:48; Start 12/10/17 at 21:00 Labetalol HCl (Trandate) 200 mg 1X ONCE PO Last administered on 12/10/17at 13: 09; Start 12/10/17 at 13:00; Stop 12/10/17 at 13:01; Status DC Heparin Sodium (Porcine) (Heparin Sq) 5,000 unit Q12HR SQ Last administered on 12/18/17at 08:54; Start 12/10/17 at 21:00 Regadenoson (Lexiscan) 0.4 mg 1X ONCE IV Last administered on 12/11/17at 12:05 ; Start 12/11/17 at 11:30; Stop 12/11/17 at 11:31; Status DC Clonidine HCl (Catapres) 0.2 mg Q8HRS PO Last administered on 12/18/17at 13:54; Start 12/12/17 at 14:00 Amlodipine Besylate (Norvasc) 10 mg DAILYWSUP PO Last administered on at 18:12; Start 12/12/17 at 17:00 Sodium Chloride 1,000 ml @ 1,000 mls/hr Q1H PRN IV hypotension; Start 12/13/17 at 13:30; Stop 12/13/17 at 19:29; Status DC Sodium Chloride 1,000 ml @ 400 mls/hr Q2H30M PRN IV PATENCY; Start 12/13/17 at 13:30; Stop 12/14/17 at 01:29; Status DC Info (PHARMACY MONITORING -- do not chart) 1 each PRN DAILY PRN MC SEE COMMENTS ; Start 12/13/17 at 16:15; Status UNV Info (PHARMACY MONITORING -- do not chart) 1 each PRN DAILY PRN MC SEE COMMENTS ; Start 12/13/17 at 16:15 Sodium Chloride 1,000 ml @ 1,000 mls/hr Q1H PRN IV hypotension; Start 12/15/17 at 09:07; Stop 12/15/17 at 15:06; Status DC Albumin Human 200 ml @ 200 mls/hr 1X PRN PRN IV Hypotension; Start 12/15/17 at 09:15; Stop 12/15/17 at 15:14; Status DC Sodium Chloride 1,000 ml @ 400 mls/hr Q2H30M PRN IV PATENCY; Start 12/15/17 at 09:07; Stop 12/15/17 at 21:06; Status DC Info (PHARMACY MONITORING -- do not chart) 1 each PRN DAILY PRN MC SEE COMMENTS ; Start 12/15/17 at 09:15; Status UNV Info (PHARMACY MONITORING -- do not chart) 1 each PRN DAILY PRN MC SEE COMMENTS ; Start 12/15/17 at 09:15; Status UNV Acetaminophen (Tylenol) 650 mg PRN Q6HRS PRN PO FEVER; Start 12/15/17 at 14:30 Ondansetron HCl (Zofran) 4 mg PRN Q6HRS PRN IV NAUSEA/VOMITING; Start 12/15/17 at 14:30 Morphine Sulfate (Morphine Sulfate) 2 mg PRN Q2HR PRN IV MODERATE TO SEVERE PAIN; Start 12/15/17 at 14:30 Tramadol HCl (Ultram) 50 mg PRN Q6HRS PRN PO MILD TO MODERATE PAIN; Start 12/15 at 14:30 Docusate Sodium (Colace) 100 mg PRN DAILY PRN PO CONSTIPATION; Start 12/15/17 at 14:30 Sodium Chloride 1,000 ml @ 1,000 mls/hr Q1H PRN IV hypotension; Start 12/17/17 at 07:16; Stop 12/17/17 at 13:15; Status DC Sodium Chloride 1,000 ml @ 400 mls/hr Q2H30M PRN IV PATENCY; Start 12/17/17 at 07:16; Stop 12/17/17 at 19:15; Status DC Info (PHARMACY MONITORING -- do not chart) 1 each PRN DAILY PRN MC SEE COMMENTS ; Start 12/17/17 at 07:30; Stop 12/17/17 at 07:30; Status DC Info (PHARMACY MONITORING -- do not chart) 1 each PRN DAILY PRN MC SEE COMMENTS ; Start 12/17/17 at 07:30; Stop 12/17/17 at 07:30; Status DC Lidocaine/ Epinephrine (LIDOCAINE 1%-EPI 1:100,000 Multi-Dose) 20 ml STK-MED ONCE .ROUTE ; Start 12/17/17 at 10:51; Stop 12/17/17 at 10:53; Status DC Heparin Sodium (Porcine) (Heparin Sodium) 10,000 unit STK-MED ONCE .ROUTE ; Start 12/17/17 at 10:52; Stop 12/17/17 at 10:53; Status DC Midazolam HCl (Versed) 2 mg STK-MED ONCE .ROUTE ; Start 12/17/17 at 11:03; Stop 12/17/17 at 11:04; Status DC Fentanyl Citrate (Fentanyl 2ml Vial) 100 mcg STK-MED ONCE .ROUTE ; Start at 11:03; Stop 12/17/17 at 11:04; Status DC Cefazolin Sodium/ Dextrose 50 ml @ As Directed STK-MED ONCE IV ; Start 12/17/17 at 11:03; Stop 12/17/17 at 11:05; Status DC Midazolam HCl (Versed) 2 mg 1X ONCE IV Last administered on 12/17/17at 11:52; Start 12/17/17 at 11:45; Stop 12/17/17 at 11:48; Status DC Fentanyl Citrate (Fentanyl 2ml Vial) 100 mcg 1X ONCE IV Last administered on 12/17/17at 11:52; Start 12/17/17 at 11:45; Stop 12/17/17 at 11:47; Status DC Lidocaine/ Epinephrine (LIDOCAINE 1%-EPI 1:100,000 Multi-Dose) 9 ml 1X ONCE IJ Last administered on 12/17/17at 11:51; Start 12/17/17 at 11:45; Stop 12/17/17 at 11:47; Status DC Heparin Sodium (Porcine) (Heparin Sodium) 3,800 unit 1X ONCE INT CAT Last administered on 12/17/17at 11:51; Start 12/17/17 at 11:45; Stop 12/17/17 at 11:47 ; Status DC Cefazolin Sodium/ Dextrose 50 ml @ 100 mls/hr 1X ONCE IV Last administered on 12/17/17at 11:51; Start 12/17/17 at 11:45; Stop 12/17/17 at 12:14; Status DC Vitals/I & O Vital Sign - Last 24 Hours 12/17/17 12/17/17 12/17/17 12/17/17 18:12 19:30 20:00 22:01 Temp 98.2 98.2 Pulse 64 69 69 Resp 16 B/P (MAP) 161/87 150/74 (99) 150/74 Pulse Ox 95 O2 Delivery Room Air Room Air 12/17/17 12/17/17 12/17/17 12/18/17 22:03 22:08 23:02 03:27 Temp 98.1 98.4 98.1 98.4 Pulse 69 68 67 65 Resp 16 16 B/P (MAP) 150/74 147/72 (97) 145/78 (100) 129/69 (89) Pulse Ox 96 98 O2 Delivery Room Air Room Air 12/18/17 12/18/17 12/18/17 12/18/17 05:56 07:36 08:00 08:48 Temp 97.9 97.9 Pulse 65 61 61 Resp 18 B/P (MAP) 129/69 154/72 (99) 154/72 Pulse Ox 96 O2 Delivery Room Air Room Air 12/18/17 12/18/17 11:16 13:54 Temp 98.0 98.0 Pulse 58 58 Resp 20 B/P (MAP) 141/68 (92) 166/74 Pulse Ox 92 O2 Delivery Room Air Intake and Output 12/17/17 12/17/17 12/18/17 15:00 23:00 07:00 Intake Total 300 ml 350 ml Output Total 400 ml Balance 300 ml -50 ml TOBIN MAGANA MD Dec 18, 2017 14:44
[2017-12-18 15:00] VITALS: BP 169/84
[2017-12-18 17:16] LABS: ANA INTERP Negative (.)
[2017-12-18] MEDS: amLODIPine BESYLATE 10 MG TABLET PO SCH (17:59)
[2017-12-18 19:20] VITALS: BP 185/87
[2017-12-18 23:11] VITALS: BP_SYST 113; BP_SYST 159; BP_DIAS 57; BP_DIAS 77
[2017-12-19 03:13] VITALS: BP 175/65
[2017-12-19] MEDS: cloNIDine HCL 0.2 MG TABLET PO SCH (06:15)
[2017-12-19 07:00] VITALS: BP 167/88
[2017-12-19] MEDS: LABETALOL HCL 200 MG TABLET PO SCH (07:48)
[2017-12-19] MEDS ORDERED: IV NORMAL SALINE 1000ML BAG 1,000 ML IV PRN ×2 (07:54)
[2017-12-19] MEDS: HEPARIN PF for SUB-Q USE 5,000 UNIT/0.5 ML VIAL. SQ SCH (07:55)
[2017-12-19] MEDS ORDERED: DIALYSIS PATIENT. MC PRN ×2 (08:00)
--- NOTE | 2017-12-19 08:50 | PDOC ---
SUBJECTIVE Subjective S: Doing Well, in good spirits today O: Physical exam: Gen.: Well-nourished and well-developed, resting in bed Lungs: Breathing comfortably with no evidence of respiratory distress Psychiatric: Pleasant mood and affect Labs: immunoglobulins not elevated, protein creatinine ratio 4894, hemoglobin 9.6, ferritin 138, iron sat 15%, SPEP negative for M spike, 24 hour UPEP pending Assessment and Plan: She is a 52-year-old female admitted with CHF exacerbation , hypertensive emergency and renal failure on dialysis recently started, with mildly elevated light chains and anemia Anemia: may benefit from SOURAV, defer to nephrology as she is on dialysis, ferritin adequate though iron sat of 15% Elevated lite chains: neg SPEP, 24 hr UPEP collected, lab tells me results may be available as soon as Friday, thus far she does not seem to have myeloma from my perspective, laisha w/ lite chains not very elevated in relation to her urine proteins, though I told her we do need to wait for the UPEP to return, we'll not plan for bone marrow biopsy at this time until we have the 24 hour UPEP results to further guide our plans, and we can certainly do this as an outpatient as needed NSTEMI: Cardiology has been involved Renal failure: On dialysis, nephrology is following HTN: Defer to primary Disposition: Fine for discharge from my standpoint and if she is discharged we can certainly follow up as an outpatient as needed once UPEP results return Thank you kindly, and please don't hesitate to call with any questions. OBJECTIVE Vital Signs Vital Signs Date Time Temp Pulse Resp B/P (MAP) Pulse Ox O2 Delivery O2 Flow Rate FiO2 12/19/17 07:48 58 175/65 12/19/17 07:00 97.9 59 20 167/88 (114) 96 Room Air 97.9 12/19/17 06:15 58 175/65 12/19/17 03:13 98.1 58 19 175/65 (101) 96 Room Air 98.1 12/18/17 23:11 97.4 59 20 159/77 (104) 96 Room Air 97.4 12/18/17 20:42 62 185/87 12/18/17 20:41 62 185/87 12/18/17 19:34 Room Air 12/18/17 19:20 97.7 62 20 185/87 (119) 95 Room Air 97.7 12/18/17 17:59 61 169/84 12/18/17 15:00 97.8 61 20 169/84 (112) 96 Room Air 97.8 12/18/17 13:54 58 166/74 12/18/17 11:16 98.0 58 20 141/68 (92) 92 Room Air 98.0 12/18/17 08:48 61 154/72 I & O Intake and Output 12/19/17 07:00 Intake Total 750 ml Output Total 502 ml Balance 248 ml Intake Oral 750 ml Output Urine Total 502 ml # Voids 1 FLORESITA MCKEON MD Dec 19, 2017 08:50
[2017-12-19 09:33] LABS: BASO % 1 % (0-3); EOS # 0.3 x10^3/uL (0.0-0.7); EOS % 9 % (0-3); HEMATOCRIT 27.4 % (36.0-47.0); HEMOGLOBIN 9.1 g/dL (12.0-15.5); LYMPH # 0.8 x10^3/uL (1.0-4.8); LYMPH % 21 % (24-48); MEAN CORPUSCULAR HEMOGLOBIN 32 pg (25-35); MEAN CORPUSCULAR HGB CONC 33 g/dL (31-37); MEAN CORPUSCULAR VOLUME 95 fL (79-100); MONO # 0.4 x10^3/uL (0.0-1.1); MONO % 12 % (0-9); NEUT # 2.1 x10^3uL (1.8-7.7); NEUT % 58 % (31-73); PLATELET COUNT 192 x10^3/uL (140-400); RED BLOOD COUNT 2.89 x10^6/uL (3.50-5.40); WHITE BLOOD COUNT 3.7 x10^3/uL (4.0-11.0)
[2017-12-19 10:01] LABS: CALCIUM 9.7 mg/dL (8.5-10.1); GFR 14.1
[2017-12-19] MEDS ORDERED: AMLO10TA6 PO (10:08)
[2017-12-19] MEDS ORDERED: LABE200T4 PO (10:08)
[2017-12-19] MEDS ORDERED: CLON0.3T4 PO (10:08)
--- NOTE | 2017-12-19 10:16 | PDOC ---
SUBJECTIVE ROS No new concerns Voiced seen on HD tolerating well OBJECTIVE Vital Signs Vital Signs Date Time Temp Pulse Resp B/P (MAP) Pulse Ox O2 Delivery O2 Flow Rate FiO2 12/19/17 07:48 58 175/65 12/19/17 07:00 97.9 20 96 Room Air 97.9 I & 0 Intake and Output 12/19/17 07:01 Intake Total 750 ml Output Total 502 ml Balance 248 ml Intake Oral 750 ml Output Urine Total 502 ml # Voids 1 PHYSICAL EXAM Physical Exam GEN: NAD HEENT- OM moist, NECK: No JVD CVS: S1S2, Murmur + RESP: Bilat crackles +, Non labored breathing GI: BS + ve, Non Tender, obese : No CVA tenderness, no Suprapubic Tenderness,No christopher Skin No rash Neuro- AxO, grossly Normal TDC + DIAGNOSIS/ASSESSMENT Assessment & Plan New Onset ESRD - Unknown baseline renal function Shanika HTNsive nephrosclerosis , all hallman negative Initiated on HD (12/13, seen on HD today, tolerating well Continue as Ordered Has TDC, awaiting OP chair time Proteinuria- Nephrotic ranges, No sign micr hematuria HALLMAN for Nephrotic Proteinuria - negative -Hepatitis Negative , BAM neg , complements Normal , Cryo- none detected K and L - High , ratio high, could be sec to Renal failure, , SPEP normal - No M spike Ig normal , Hem/Onc following - upep pending HTN Urgency -- Renal Doppler No significant findings Anemia- Tsat low , Hgb stable ? Colonoscopy if Indicated as per Primary IV Fe as per protocol as OP on HD Shortness of Breath- CxR Pulm edema, BNP elevated TTE with preserved LVEF; mild concentric LVH and mild to moderate MR/TR with pulm HTN and PA of 52 mm Hg Discussed with Pt and epic cadence analyst COMMENT/RELEVANT DATA Meds Current Medications Medications (Trade) Dose Ordered Sig/Keri Start Time Stop Time Status Last Admin Dose Admin Acetaminophen (Tylenol) 650 mg PRN Q6HRS PRN 12/15/17 14:30 Albumin Human 200 ml @ 200 mls/hr 1X PRN PRN 12/15/17 09:15 12/15/17 15:14 DC Amlodipine Besylate (Norvasc) 10 mg DAILYWSUP 12/12/17 17:00 12/18/17 17:59 10 MG Aspirin (Children'S Aspirin) 324 mg 1X ONCE 12/09/17 16:00 12/09/17 16:06 DC 12/09/17 16:08 324 MG Cefazolin Sodium/ Dextrose 50 ml @ 100 mls/hr 1X ONCE 12/17/17 11:45 12/17/17 12:14 DC 12/17/17 11:51 100 MLS/HR Clonazepam (KlonoPIN) 1 mg PRN QHS PRN 12/09/17 21:15 12/11/17 20:49 1 MG Clonidine HCl (Catapres) 0.3 mg Q8HRS 12/19/17 14:00 UNV Docusate Sodium (Colace) 100 mg PRN DAILY PRN 12/15/17 14:30 Fentanyl Citrate (Fentanyl 2ml Vial) 100 mcg 1X ONCE 12/17/17 11:45 12/17/17 11:47 DC 12/17/17 11:52 100 MCG Furosemide (Lasix) 40 mg 1X ONCE 12/09/17 16:45 12/09/17 16:46 DC 12/09/17 16:45 40 MG Furosemide 100 mg/ Sodium Chloride 100 ml @ 5 mls/hr CONT PRN 12/09/17 19:15 12/11/17 00:57 10 MLS/HR Heparin Sodium (Porcine) (Heparin Sodium) 3,800 unit 1X ONCE 12/17/17 11:45 12/17/17 11:47 DC 12/17/17 11:51 3,800 UNIT Heparin Sodium (Porcine) (Heparin Sq) 5,000 unit Q12HR 12/10/17 21:00 12/19/17 07:55 5,000 UNIT Info (PHARMACY MONITORING -- do not chart) 1 each PRN DAILY PRN 12/19/17 08:00 UNV Labetalol HCl (Trandate) 200 mg 1X ONCE 12/10/17 13:00 12/10/17 13:01 DC 12/10/17 13:09 200 MG Lidocaine/ Epinephrine (LIDOCAINE 1%-EPI 1:100,000 Multi-Dose) 9 ml 1X ONCE 12/17/17 11:45 12/17/17 11:47 DC 12/17/17 11:51 9 ML Lidocaine/Sodium Bicarbonate (Buffered Lidocaine 1%) 6 ml 1X ONCE 12/10/17 10:15 12/10/17 10:16 DC Midazolam HCl (Versed) 2 mg 1X ONCE 12/17/17 11:45 12/17/17 11:48 DC 12/17/17 11:52 2 MG Morphine Sulfate (Morphine Sulfate) 2 mg PRN Q2HR PRN 12/15/17 14:30 Nicardipine HCl 50 mg/Sodium Chloride 270 ml @ 27 mls/hr CONT PRN 12/09/17 19:00 12/12/17 11:19 DC 12/09/17 23:32 27 MLS/HR Nitroglycerin (Nitrostat) 0.4 mg STK-MED ONCE 12/09/17 16:00 12/09/17 16:01 DC Nitroglycerin/ Dextrose 250 ml @ 0 mls/hr 1X ONCE 12/09/17 16:30 12/09/17 18:52 DC 12/09/17 16:29 1.5 MLS/HR Ondansetron HCl (Zofran) 4 mg PRN Q6HRS PRN 12/15/17 14:30 Regadenoson (Lexiscan) 0.4 mg 1X ONCE 12/11/17 11:30 12/11/17 11:31 DC 12/11/17 12:05 0.4 MG Sodium Chloride 1,000 ml @ 400 mls/hr Q2H30M PRN 12/19/17 07:54 12/19/17 19:53 Tramadol HCl (Ultram) 50 mg PRN Q6HRS PRN 12/15/17 14:30 Lab Laboratory Tests Test 12/19/17 09:15 White Blood Count 3.7 x10^3/uL (4.0-11.0) Red Blood Count 2.89 x10^6/uL (3.50-5.40) Hemoglobin 9.1 g/dL (12.0-15.5) Hematocrit 27.4 % (36.0-47.0) Mean Corpuscular Volume 95 fL (79-100) Mean Corpuscular Hemoglobin 32 pg (25-35) Mean Corpuscular Hemoglobin Concent 33 g/dL (31-37) Red Cell Distribution Width 16.0 % (11.5-14.5) Platelet Count 192 x10^3/uL (140-400) Neutrophils (%) (Auto) 58 % (31-73) Lymphocytes (%) (Auto) 21 % (24-48) Monocytes (%) (Auto) 12 % (0-9) Eosinophils (%) (Auto) 9 % (0-3) Basophils (%) (Auto) 1 % (0-3) Neutrophils # (Auto) 2.1 x10^3uL (1.8-7.7) Lymphocytes # (Auto) 0.8 x10^3/uL (1.0-4.8) Monocytes # (Auto) 0.4 x10^3/uL (0.0-1.1) Eosinophils # (Auto) 0.3 x10^3/uL (0.0-0.7) Basophils # (Auto) 0.0 x10^3/uL (0.0-0.2) Results All relevant outside records, renal labs, imaging studies, telemetry/EKG's were reviewed. THADDEUS GOMEZ MD Dec 19, 2017 10:16
--- NOTE | 2017-12-19 12:53 | PDOC3 ---
Discharge Summary [facility] Date of Admission: Dec 09, 2017 Discharge Date: Dec 19, 2017 Admitting Diagnosis Acute diastolic heart failure, TOSHIA, ATN likely CKD 3? Hypertensive emergency Ischemic cardiomyopathy\ Final Diagnosis Problems CONSULTS card renal Brief Hospital Course Ms. Gonzalez is a 52 old F, no insurance, comes for sob. She was found bl leg severe edema, toshia. She required HD and sob is gone. Echo showed ef 55%. pt required HD for 3 times, got perm HD cath. Cr still at 4, bl leg edema better , but still 2+. renal labs showed possible myeloma, onco involved, waiting for final SPEP result for possible bone marrow bx. SW set medicaid application. Outpt HD set up TTSat. dc home with amlodipine, labetolol, clonidine as per card. increase clonidine dose. dc time 35min. General: Alert, Oriented X3, Cooperative, No acute distress Heart: Normal S1, Normal S2, No murmurs Lungs: Clear Abdomen: Normal bowel sounds, Soft Extremities: No clubbing, No cyanosis, Other (bl leg 2+ edema) Skin: No rashes, No breakdown Patient History: FH: CAD (coronary artery disease) 33 FATHER FH: CHF (congestive heart failure) G8 SISTER FH: HTN (hypertension) 33 FATHER 32 MOTHER G8 SISTER FH: breast cancer G8 SISTER FH: diabetes mellitus 33 FATHER FH: renal failure 33 FATHER Osteoarthritis 32 MOTHER Unknown Disposition home CONDITION AT DISCHARGE: Improved Scheduled Amlodipine Besylate (Amlodipine Besylate), 10 MG PO DAILYWSUP Clonidine Hcl (Catapres), 0.3 MG PO Q8HRS Labetalol Hcl (Labetalol Hcl), 400 MG PO BID TOBIN MAGANA MD Dec 19, 2017 12:53
[2017-12-19 12:59] VITALS: BP 175/65
[2017-12-19] MEDS ORDERED: cloNIDine HCL 0.3 MG TABLET PO SCH ×2 (14:00)
== END 2017-12-19 16:43 | disposition home or self-care (01) | DRG 673 ==
LOC: ER 15:47 → UNDOADMIN 17:04 → 1 WEST ICU 17:04 → 2 NORTH 17:04
PROVIDERS: ADMIT Radiology Diagnostic Radiology; ATTEND Internal Medicine
PROC: B244ZZZ Ultrasonography of Right Heart (ICD-10-PCS; 2017-12-10)
PROC: 02H633Z Insertion of Infusion Device into Right Atrium, Percutaneous Approach (ICD-10-PCS; 2017-12-10)
PROC: 02PA33Z Removal of Infusion Device from Heart, Percutaneous Approach (ICD-10-PCS; 2017-12-10)
PROC: B5131ZA Fluoroscopy of Right Jugular Veins using Low Osmolar Contrast, Guidance (ICD-10-PCS; 2017-12-10)
PROC: 5A1D70Z Performance of Urinary Filtration, Intermittent, Less than 6 Hours Per Day (ICD-10-PCS; principal; 2017-12-13)
PROC: 5A1D70Z Performance of Urinary Filtration, Intermittent, Less than 6 Hours Per Day (ICD-10-PCS; 2017-12-15)
PROC: 0JH63XZ Insertion of Tunneled Vascular Access Device into Chest Subcutaneous Tissue and Fascia, Percutaneous Approach (ICD-10-PCS; 2017-12-17)
PROC: 5A1D70Z Performance of Urinary Filtration, Intermittent, Less than 6 Hours Per Day (ICD-10-PCS; 2017-12-17)
PROC: 02HV33Z Insertion of Infusion Device into Superior Vena Cava, Percutaneous Approach (ICD-10-PCS; 2017-12-17)
PROC: 5A1D70Z Performance of Urinary Filtration, Intermittent, Less than 6 Hours Per Day (ICD-10-PCS; 2017-12-19)
DX: N17.0 Acute kidney failure with tubular necrosis (principal); I21.4 Non-ST elevation (NSTEMI) myocardial infarction; I50.41 Acute combined systolic (congestive) and diastolic (congestive) heart failure; I16.1 Hypertensive emergency; I13.2 Hypertensive heart and chronic kidney disease with heart failure and with stage 5 chronic kidney disease, or end stage renal disease; Z68.42 Body mass index [BMI] 45.0-49.9, adult; N18.6 End stage renal disease; N04.9 Nephrotic syndrome with unspecified morphologic changes; D63.8 Anemia in other chronic diseases classified elsewhere; E66.01 Morbid (severe) obesity due to excess calories; I27.20 Pulmonary hypertension, unspecified; I25.5 Ischemic cardiomyopathy; I25.2 Old myocardial infarction; Z99.2 Dependence on renal dialysis; Z80.3 Family history of malignant neoplasm of breast; Z82.49 Family history of ischemic heart disease and other diseases of the circulatory system; Z98.51 Tubal ligation status; Z79.899 Other long term (current) drug therapy; Z83.3 Family history of diabetes mellitus; Z82.61 Family history of arthritis; Z84.1 Family history of disorders of kidney and ureter
CPT/HCPCS: 36415; 36556; 36581; 51702; 71045; 76937; 77001; 78452; 80048; 80053; 80061; 80307; 81001; 82550; 82570; 82595; 82728; 82784; 83520; 83540; 83550; 83690; 83880; 84156; 84165; 84484; 85025; 85610; 86038; 86160; 86704; 86705; 86706; 86803; 87340; 87641; 93005; 93017; 93306; 93975; 96374; 96375; 96376; 99152; 99153; A9500; C1750; C1769; C1892; J0690; J1940; J2250; J2785; J3010; J3490; J7050; 99285-25; G0479; J7030

== ENCOUNTER 2018-04-02 07:35 | Day surgery (SDC) | payer MEDICARE, MEDICAID ==
[~2018-04-02] VITALS: Ht 165.1 cm; Wt 98.4 kg
[~2018-04-02 07:35] MED LIST: AMLO10TA8 PO; CLON0.3T4 PO; HEPARIN SODIUM 5,000 UNIT in IV NORMAL SALINE 500ML BAG 500 ML IRR ONE; HYDROmorphone 2 MG/ML VIAL IV PRN; IV RINGERS,LACTATED 1000ML 1,000 ML IV SCH; LABE200T4 PO; LIDOCAINE 1% PF 2 ML VIAL. ID PRN; MORPHINE SULFATE 4 MG/ML VIAL. IV PRN; ONDANSETRON PF 4 MG/2 ML VIAL. IV PRN; PROCHLORPERAZINE 10 MG/2 ML VIAL. IV PRN; fentaNYL PF VIAL 100 MCG/2 ML VIAL IV PRN
[2018-04-02 08:27] LABS: BASO # 0.1 x10^3/uL (0.0-0.2); BASO % 1 % (0-3); EOS # 0.2 x10^3/uL (0.0-0.7); EOS % 3 % (0-3); HEMATOCRIT 38.5 % (36.0-47.0); LYMPH # 1.5 x10^3/uL (1.0-4.8); LYMPH % 20 % (24-48); MEAN CORPUSCULAR HEMOGLOBIN 32 pg (25-35); MEAN CORPUSCULAR HGB CONC 34 g/dL (31-37); MEAN CORPUSCULAR VOLUME 95 fL (79-100); MONO # 0.6 x10^3/uL (0.0-1.1); MONO % 8 % (0-9); NEUT % 68 % (31-73); PLATELET COUNT 221 x10^3/uL (140-400); RED BLOOD COUNT 4.03 x10^6/uL (3.50-5.40); RED CELL DISTRIBUTION WIDTH 17.6 % (11.5-14.5); WHITE BLOOD COUNT 7.3 x10^3/uL (4.0-11.0)
[2018-04-02 08:41] LABS: ALBUMIN 3.8 g/dL (3.4-5.0); CALCIUM 10.4 mg/dL (8.5-10.1); CREATININE 4.8 mg/dL (0.6-1.0); GFR 11.4; POTASSIUM 4.6 mmol/L (3.5-5.1)
[2018-04-02] MEDS ORDERED: ONDANSETRON PF 4 MG/2 ML VIAL. ONE (08:47)
[2018-04-02] MEDS ORDERED: MIDAZOLAM HCL/PF 2 MG/2 ML VIAL. ONE (08:47)
[2018-04-02] MEDS ORDERED: PROPOFOL 20 ML IV ONE (08:47)
[2018-04-02] MEDS ORDERED: FAMOTIDINE 20 MG/2 ML VIAL ONE (08:47)
[2018-04-02] MEDS ORDERED: fentaNYL PF VIAL 100 MCG/2 ML VIAL ONE (08:48)
[2018-04-02] MEDS ORDERED: BUPIVAC MPF-EPI 0.5%-1:200000 30 ML VIAL. ONE (09:34)
[2018-04-02] MEDS ORDERED: CISATRACURIUM BESYLATE IV ONE (09:38)
[2018-04-02] MEDS ORDERED: NEOSTIGMINE 10 MG/10 ML VIAL. ONE ×3 (10:36→10:42)
[2018-04-02] MEDS ORDERED: GLYCOPYRROLATE 1 MG/5 ML VIAL. ONE (10:37)
--- NOTE | 2018-04-02 11:14 | PDOC ---
BRIEF OPERATIVE NOTE Date: Apr 02, 2018 Pre-Op Diagnosis ESRD Post-Op Diagnosis same Procedure Performed l/s placement of PD catheter Surgeon Nadeem Anesthesia Type: General Blood Loss 10cc IV Fluid 300cc Specimens Obtained none Findings no adhesions seen Complications none Operative Note Wk # [id number] LUIS CARLOS HADDAD MD Apr 02, 2018 11:14
[2018-04-02] MEDS ORDERED: oxyCODONE/APAP 5/325 1 TAB TABLET PO ONE (11:15)
[2018-04-02] MEDS ORDERED: hydrALAZINE 20 MG/ML VIAL. IVP ONE (11:15)
--- NOTE | 2018-04-02 11:15 | DISCH ---
DISCHARGE INSTRUCTIONS Condition on Discharge Condition on Discharge: Stable Activity After Discharge Activity Instructions for Disc: Activity as tolerated, Avoid exertion Driving Instructions after Dis: Do not drive today Diet after Discharge Diet after Discharge: Cardiac, Renal Dialysis Wound Incision Care Wound/Incision Care: Ice to area for comfort, Keep wound/cast CDI Follow-Up Follow up with: Nadeem two weeks Treatment/Equipment after DC Adaptive Equipment Issued: None LUIS CARLOS HADDAD MD Apr 02, 2018 11:15
[2018-04-02] MEDS ORDERED: hydrALAZINE 20 MG/ML VIAL. ONE (11:16)
--- NOTE | 2018-04-02 11:26 | OP ---
DATE OF SURGERY: 04/02/2018 PREOPERATIVE DIAGNOSIS: End-stage renal disease, on hemodialysis. POSTOPERATIVE DIAGNOSIS: End-stage renal disease on hemodialysis. PROCEDURE: Laparoscopic placement of a peritoneal dialysis catheter. SURGEON: Konrad Haddad MD. ANESTHESIA: General endotracheal. ESTIMATED BLOOD LOSS: 10 mL. INTRAVENOUS FLUID: 300 mL. DESCRIPTION OF PROCEDURE: The patient brought to the operating suite, given a general endotracheal anesthetic. Ellsworth catheter placed to dependent drainage and the abdomen prepped and draped in usual sterile fashion. The template was used to outline location of catheter insertion. A 0.5% Marcaine with epinephrine was infiltrated in the epigastrium in the midline. A small incision made and a 5 mm Visiport used to safely gain access into the abdominal cavity, taking care to avoid injury to abdominal contents. Pneumoperitoneum established. Under direct vision, the entry site for the catheter was infiltrated with local anesthetic, incised. The Cook needle was inserted under direct vision. Needle removed. Dilator was passed. Catheter was threaded into the true pelvis and the Dacron cuff seated above the peritoneum. Catheter then tunneled subcutaneously to the access site. Abdomen decompressed. Port removed. Catheter was flushed with 500 mL of normal saline, which readily accepted and drained a similar volume. Incisions closed with interrupted 3-0 Vicryl in the subcutaneous tissue and 4-0 Monocryl subcuticular with Steri-Strips for the skin. Catheter was "packed" with a heparinized saline at completion. Sterile dressings applied. Ellsworth catheter removed. The patient awakened from her anesthetic and taken to the recovery room in satisfactory condition. KONRAD HADDAD MD DR: PATRICIA/viral JOB#: [id number] / [id number] IDALMIS Victoria MD
[2018-04-02 11:54] VITALS: BP 154/76
== END 2018-04-02 11:54 | disposition home or self-care (01) ==
LOC: SURG 07:35
PROVIDERS: ATTEND Surgery
DX: N18.6 End stage renal disease (principal); Z99.2 Dependence on renal dialysis; Z79.899 Other long term (current) drug therapy; Z98.890 Other specified postprocedural states; Z98.51 Tubal ligation status; Z82.49 Family history of ischemic heart disease and other diseases of the circulatory system; Z83.3 Family history of diabetes mellitus; Z84.1 Family history of disorders of kidney and ureter
CPT/HCPCS: 36415; 49324; 80048; 82040; 85025; A7015; J0360; J0696; J1644; J2250; J2405; J2704; J2710; J3010; J3490; J7030; J7040

== ENCOUNTER 2019-02-23 10:03 | Outpatient (CLI) | payer MEDICARE, MEDICAID ==
[~2019-02-23] VITALS: Ht 165.1 cm; Wt 99.8 kg
[~2019-02-23 10:03] MED LIST changes: -HEPARIN SODIUM 5,000 UNIT in IV NORMAL SALINE 500ML BAG 500 ML IRR ONE; -HYDROmorphone 2 MG/ML VIAL IV PRN; -IV RINGERS,LACTATED 1000ML 1,000 ML IV SCH; -LIDOCAINE 1% PF 2 ML VIAL. ID PRN; -MORPHINE SULFATE 4 MG/ML VIAL. IV PRN; -ONDANSETRON PF 4 MG/2 ML VIAL. IV PRN; -PROCHLORPERAZINE 10 MG/2 ML VIAL. IV PRN; -fentaNYL PF VIAL 100 MCG/2 ML VIAL IV PRN
[2019-02-23] MEDS ORDERED: IOHEXOL 240 MG/ML 50ML VIAL. ONE (10:16)
[2019-02-23] MEDS ORDERED: POLY17PO29 PO (10:37)
[2019-02-23] MEDS ORDERED: heparin (10:37)
[2019-02-23] MEDS ORDERED: AMLO10TA8 PO (10:37)
[2019-02-23] MEDS ORDERED: FURO80TA3 PO (10:37)
[2019-02-23] MEDS ORDERED: SEVE800T9 PO (10:37)
[2019-02-23 10:39] VITALS: BP 159/80
[2019-02-23] MEDS ORDERED: CONTRAST GIVEN. MC PRN (11:00)
[2019-02-23] MEDS ORDERED: IOHEXOL 240 MG/ML 50ML VIAL. IJ ONE (11:00)
--- NOTE | 2019-02-23 11:43 | NUR ---
Discharge Note: NORI SAMUELS Discharge instructions and discharge home medications reviewed with patient and a copy given. All questions have been answered and understanding verbalized. The following instructions and handouts were given: Peritoneal dialysis. Discontinued lines and drains. Patient discharged and transported via wheelchair to her car in outpatient.
--- NOTE | 2019-02-26 09:22 | RAD ---
Fluoroscopic evaluation. Hemodialysis catheter February 20, 2019 INDICATION: Pain with catheter use. Bloody fluid noted in catheter. COMPARISON STUDY: None FINDINGS: Fluoroscopic evaluation demonstrates the peritoneal dialysis catheter to have its tip in the right pelvis, somewhat cephalad in position. Contrast was administered which does not appear to be particularly loculated. Bloody aspirate however was noted. Towards the end of aspiration, the patient had pain. Fluid is seen to freely flow from the catheter. Fluoroscopy time: 1.2 minutes Dose area product 68 Gycm2 IMPRESSION: 1. Peritoneal dialysis catheter positioned in the superior right pelvis 2. Pain at the end of aspiration with mildly bloody fluid. No melida loculation or obstruction is seen.
== END 2019-02-23 11:49 | disposition home or self-care (01) ==
LOC: INTRAD 10:03
PROVIDERS: ATTEND Internal Medicine Nephrology
DX: T85.848A Pain due to other internal prosthetic devices, implants and grafts, initial encounter (principal); I10 Essential (primary) hypertension; Z79.01 Long term (current) use of anticoagulants; Z79.899 Other long term (current) drug therapy; Y83.8 Other surgical procedures as the cause of abnormal reaction of the patient, or of later complication, without mention of misadventure at the time of the procedure; Y92.89 Other specified places as the place of occurrence of the external cause
CPT/HCPCS: 49400; 74190; 87071; 87075; C1769; Q9966

== ENCOUNTER 2019-03-03 08:44 | Day surgery (SDC) | payer MEDICARE, MEDICAID ==
[~2019-03-03] VITALS: Ht 165.1 cm; Wt 101.0 kg
[~2019-03-03 08:44] MED LIST changes: +BUPIVACAINE-EPI 0.5%-1:200000 MPF 30 ML VIAL. INJ ONE; +FURO80TA3 PO; +HEPARIN SODIUM 5,000 UNIT in IV NORMAL SALINE 500ML BAG 500 ML IRR ONE; +HYDROmorphone 2 MG/ML VIAL IV PRN; +IV RINGERS,LACTATED 1000ML 1,000 ML IV SCH; +LIDOCAINE 1% PF 2 ML VIAL. ID PRN; +MORPHINE SULFATE 2 MG/ML VIAL. IV PRN; +ONDANSETRON PF 4 MG/2 ML VIAL. IV PRN; +POLY17PO29 PO; +PROCHLORPERAZINE 10 MG/2 ML VIAL. IV PRN; +SEVE800T9 PO; +fentaNYL PF VIAL 100 MCG/2 ML VIAL IV PRN; +heparin
[2019-03-03] MEDS ORDERED: IV NORMAL SALINE 1000ML BAG 1,000 ML IV SCH (09:45)
[2019-03-03 09:52] LABS: BASO # 0.1 x10^3/uL (0.0-0.2); BASO % 1 % (0-3); EOS # 0.2 x10^3/uL (0.0-0.7); EOS % 2 % (0-3); HEMATOCRIT 27.3 % (36.0-47.0); HEMOGLOBIN 8.9 g/dL (12.0-15.5); LYMPH # 0.8 x10^3/uL (1.0-4.8); LYMPH % 9 % (24-48); MEAN CORPUSCULAR HEMOGLOBIN 30 pg (25-35); MEAN CORPUSCULAR HGB CONC 33 g/dL (31-37); MEAN CORPUSCULAR VOLUME 92 fL (79-100); MONO # 0.6 x10^3/uL (0.0-1.1); MONO % 7 % (0-9); NEUT # 7.5 x10^3/uL (1.8-7.7); NEUT % 81 % (31-73); PLATELET COUNT 476 x10^3/uL (140-400); RED BLOOD COUNT 2.96 x10^6/uL (3.50-5.40); RED CELL DISTRIBUTION WIDTH 16.7 % (11.5-14.5); WHITE BLOOD COUNT 9.3 x10^3/uL (4.0-11.0)
[2019-03-03 09:59] LABS: ALBUMIN 2.6 g/dL (3.4-5.0); CALCIUM 9.2 mg/dL (8.5-10.1); CREATININE 3.6 mg/dL (0.6-1.0); GFR 15.9; POTASSIUM 4.6 mmol/L (3.5-5.1)
[2019-03-03] MEDS ORDERED: PROPOFOL 20 ML IV ONE (11:41)
[2019-03-03] MEDS ORDERED: ONDANSETRON PF 4 MG/2 ML VIAL. ONE (11:41)
[2019-03-03] MEDS ORDERED: ROCURONIUM 50 MG/5 ML VIAL. ONE (11:41)
[2019-03-03] MEDS ORDERED: DEXAMETHASONE SOD PHOS 4 MG/ML VIAL ONE (11:41)
[2019-03-03] MEDS ORDERED: LIDOCAINE 2% PF 5 ML VIAL. ONE (11:41)
[2019-03-03] MEDS ORDERED: fentaNYL PF VIAL 100 MCG/2 ML VIAL ONE (11:42)
[2019-03-03] MEDS ORDERED: NEOSTIGMINE METHYLSULFATE 5 MG/5 ML SYRINGE. ONE (13:19)
[2019-03-03] MEDS ORDERED: GLYCOPYRROLATE 1 MG/5 ML VIAL. ONE (13:19)
[2019-03-03] MEDS ORDERED: SEVOFLURANE 61 TO 120 MINUTES. IH ONE (13:40)
[2019-03-03] MEDS ORDERED: ceFAZolin 2GM PREMIX 2 GM/50 ML BAG IV ONE (14:00)
--- NOTE | 2019-03-03 14:00 | DISCH ---
DISCHARGE INSTRUCTIONS Condition on Discharge Condition on Discharge: Stable Activity After Discharge Activity Instructions for Disc: Activity as tolerated, Avoid exertion Lifting Instructions after Dis: No heavy lifting Driving Instructions after Dis: Do not drive today Diet after Discharge Diet after Discharge: Renal Dialysis Liquid Texture: Thin Liquid Wound Incision Care Wound/Incision Care: Ice to area for comfort Other wound/incision instructi: july shower Friday Follow-Up Follow up with: Nadeem two weeks Treatment/Equipment after DC Adaptive Equipment Issued: None LUIS CARLOS HADDAD MD Mar 03, 2019 14:00
--- NOTE | 2019-03-03 14:05 | PDOC ---
BRIEF OPERATIVE NOTE Date: Mar 03, 2019 Pre-Op Diagnosis ESRD, malfunction of PD catheter Post-Op Diagnosis same with extensive abdominal adhesions Procedure Performed Dx l/s removal PD catheter Surgeon Nadeem Anesthesia Type: General Blood Loss 10cc IV Fluid 100cc Urine Output 30cc Specimens Obtained none Findings extensive abdominal adhesions Complications none LUIS CARLOS HADDAD MD Mar 03, 2019 14:05
[2019-03-03] MEDS ORDERED: HYDR-3164 PO (14:14)
[2019-03-03] MEDS ORDERED: DOCU50CA9 PO (14:15)
[2019-03-03] MEDS: fentaNYL PF VIAL 100 MCG/2 ML VIAL IV PRN ×2 (14:26→14:37)
[2019-03-03] MEDS ORDERED: HYDROcodone/APAP 5/325MG 1 TAB TABLET PO ONE (14:30)
[2019-03-03 14:50] VITALS: BP 118/69
--- NOTE | 2019-03-05 12:29 | OP ---
DATE OF SURGERY: 03/03/2019 PREOPERATIVE DIAGNOSIS: End-stage renal disease with a malfunctioning PD catheter. POSTOPERATIVE DIAGNOSIS: End-stage renal disease with a malfunctioning PD catheter with extensive abdominal adhesions. PROCEDURE: Diagnostic laparoscopy and removal of PD catheter. SURGEON: Luis Carlos Haddad MD ANESTHESIA: General endotracheal. BLOOD LOSS: 10. INTRAVENOUS FLUIDS: 100. URINE OUTPUT: 30. DESCRIPTION OF PROCEDURE: The patient brought to the operating suite, given a general endotracheal anesthetic. Ellsworth catheter placed to dependent drainage and the abdomen prepped and draped in usual sterile fashion. An epigastric incision previously used to gain access into the abdominal cavity was infiltrated with local anesthetic, incised and a 5 mm Visiport used to safely gain access into the abdominal cavity, being careful to avoid injury to abdominal contents. Pneumoperitoneum established. Camera inserted. Inspection carried out and revealed extensive intra-abdominal adhesions. A small open space was able to be visualized for placement of a second 5 mm port under direct vision and attempts at mobilizing the omental and bowel adhesions off the abdominal wall was undertaken, however, the extent of the adhesions involving the abdomen made it unlikely future use of the peritoneal dialysis catheter would be feasible. I spoke with Dr. Corrales intraoperatively and recommended removal of the PD catheter. As such, the pneumoperitoneum was released. The insertion site was infiltrated with local anesthetic, incised. Dissection carried down to the Dacron cuff, which was freed and the pigtail catheter delivered intact. The small fascial rent closed with a single 0 Vicryl suture. The subcutaneous cuff was freed and the remaining catheter removed. Incisions closed with interrupted 3-0 Vicryl in the subcutaneous tissue, Monocryl or nylon for the skin. Sterile dressings applied. Ellsworth catheter removed. The patient awakened from her anesthetic and taken to the recovery room in satisfactory condition. LUIS CARLOS HADDAD MD DR: PATRICIA/viral JOB#: [id number] / [id number]
== END 2019-03-03 15:15 | disposition home or self-care (01) ==
LOC: SURG 08:44
PROVIDERS: ATTEND Surgery
DX: T85.611A Breakdown (mechanical) of intraperitoneal dialysis catheter, initial encounter (principal); I12.0 Hypertensive chronic kidney disease with stage 5 chronic kidney disease or end stage renal disease; N18.6 End stage renal disease; D64.9 Anemia, unspecified; E66.9 Obesity, unspecified; Z68.35 Body mass index [BMI] 35.0-35.9, adult; Z87.39 Personal history of other diseases of the musculoskeletal system and connective tissue; Y83.8 Other surgical procedures as the cause of abnormal reaction of the patient, or of later complication, without mention of misadventure at the time of the procedure; Y92.89 Other specified places as the place of occurrence of the external cause
CPT/HCPCS: 36415; 49422; 80048; 82040; 85025; A7015; J0696; J1100; J1644; J2001; J2405; J2704; J2710; J3010; J3490; J7030; J7040